=== PATIENT | male | born 1950 | race Caucasian/White ===

== ENCOUNTER 2020-03-10 12:02 | Day surgery (SDC) | payer MEDICARE, BC, SELFPAY ==
--- NOTE | 2020-03-06 11:25 | SUR.PREOP ---
Addendum entered by MICHELLE Can 03/06/20 11:29: 03/06/2020 @ 1130--PHONE CALL MADE TO PATIENT. PATIENT UNDERSTANDS THAT LAB WORK AND COVID TESTING NEEDS TO BE COMPLETED SAME DAY OF SURGERY. PATIENT UNDERSTANDS IF LAB WORK AND COVID-19 TESTS ARE NOT COMPLETED BY 12PM ON THAT DATE, THE SURGERY SCHEDULED WILL BE CANCELLED AND RESCHEDULED FOR ANOTHER TIME. Original Note: []--PHONE CALL MADE TO PATIENT. PATIENT UNDERSTANDS THAT LAB WORK AND COVID TESTING NEEDS TO BE COMPLETED @ [] on []. PATIENT UNDERSTANDS IF LAB WORK AND COVID-19 TESTS ARE NOT COMPLETED BY 12PM ON THAT DATE, THE SURGERY SCHEDULED WILL BE CANCELLED AND RESCHEDULED FOR ANOTHER TIME.
[2020-03-07 15:41] VITALS: BMI 31.8
[2020-03-10 13:23] VITALS: BP 126/75; PULSE 52; RESP 20; TEMP 36.4; O2SAT 99
[2020-03-10 13:24] LABS: Coronavirus 19 IgG Antibody Negative (Negative); Coronavirus 19 IgM Antibody Negative (Negative)
--- NOTE | 2020-03-10 14:05 | HMH.ANESCL ---
[facility] Anesthesia Checklist - Patient Identification Patient Identification: Arm Band - Structural Data Admitted From: Home Planned Operative Procedure/s: ercp Consent for Planned Operative Procedure(s) Verified: Yes Verified Documents: Surgical Consent, History and Physical - NPO Status Verified Time NPO: 00:00 - Additional verifications Anesthesia Reactions: No - Airway Assessment C-Spine Mobility Assessed: Yes (mp2) TMJ Mobility Assessed: Yes Dentition: Good Dentition - Neurological Assessment Level of Consciousness: Awake, Alert - Anesthesia Plan Anesthesia Risk discussed: Yes Anesthesia Plan: Verified ASA Class: III Anesthesia Type: MAC [facility] History I have reviewed the patient's past medical history: Yes Medical History: Reports:: Depression, Gastroesophageal Reflux Disease(GERD), Hyperlipidemia, Hypertension Denies:: Cancer, Diabetes Mellitus Type 1, Diabetes Mellitus Type 2, Internal Pacemaker, MRSA, Seizures *Have you ever received a pneumonia vaccine?: Yes *Have you received a flu vaccine this season?: Yes Other Medical History: Reports: Liver Disease Anesthesia experience/problems:: nac Other Surgeries: Yes: Other. No: Pacemaker Amputation: No Fractures: No - *Social History Educational Level: Attended College Smoking Status: Former smoker Alcohol Intake: current Alcohol Intake Frequency:: a few times a month Substance Use Type: denies use *Occupational Status:: employed Housing: house Household Members: spouse *Travel in the last 8 weeks: None Family Hx:: No significant family history
--- NOTE | 2020-03-10 14:35 | FL_ITS ---
PROCEDURE: FL ERCP CLINICAL INDICATION: RUQ PAIN COMPARISON: No exams were available for comparison FINDINGS: Fluoroscopy time: 1 minutes and 9 seconds There has been a prior cholecystectomy. Common bile duct has an unremarkable appearance. No intraluminal filling defects or dilatation evident. Pancreatic duct was not cannulated. IMPRESSION: Unremarkable appearing common bile duct and proximal biliary radicles Dictated by: Juni Otero MD 05/09/2020 06:52 Electronically signed by Juni Otero MD in [place] 05/09/2020 06:52
--- NOTE | 2020-03-10 14:54 | HMH.PROC ---
[facility] Procedure Note Procedure Note:: ERCP procedure Report: Endoscopic retrograde cholangiopancreatography with biliary sphincterotomy Endoscopist: Boni Hernandez II, MD Referring Physician: Regan Obrien MD/Carlota Parker MD Date of Procedure: March 10, 2020 Equipment: Olympus 180 side viewing endoscope duodenoscope Sedation: MAC sedation Indication: Mr. Reyna is a 69-year-old gentleman with chronic right-sided abdominal pain. He was referred to me for ERCP in December 2018 and had evidence of sphincter of Oddi dysfunction. I did do a biliary sphincterotomy. The patient and now states that he never generally improved after biliary sphincterotomy. He does report continued right lower abdominal pain that radiates around into the back. He has a history of obstipation and bloating. He had a prior colonoscopy in September 2018 (Dr. Lachelle Crawford) which was reportedly normal. He did not go to the terminal ileum. He has had prior cholecystectomy. He does state that he is taking the MiraLAX plus generic fiber. His CAT scan of the abdomen and pelvis in January 2018 was normal but there was some obvious obstipation with retained stool on the right side. His ultrasound of the abdomen in October 2018 showed a fatty liver but no biliary ductal dilation. He has been on BuSpar 10 mg p.o. twice daily and dietary measures. I did recommend continued dietary measures, MiraLAX plus Konsyl and buspirone increased to 20 mg p.o. twice daily. He is still having the discomfort. Procedure: Prior to the procedure, a history and physical exam was performed, and patient's medications and allergies were reviewed. The risks, benefits and alternatives of the sedation and procedure were discussed with the patient. All questions were answered and informed consent was obtained. The patient was brought to the fluoroscopic radiology room. Patient identification and proposed procedure were verified by the physician and the nurse. The patient was placed in a swimmer's position between left lateral decubitus and prone position and the scope was passed under direct vision. Throughout the procedure, the patient's blood pressure, pulse, and oxygen saturations were monitored continuously. The ERCP was accomplished without difficulty. The patient tolerated the procedure well. Findings: The side-viewing duodenal scope was passed directly into the upper esophagus and advanced to the third portion of the duodenum. There was evidence of duodenal reflux of peptic fluid into the stomach with associated reactive gastropathy of the stomach. The esophagus was normal. There was an enlarged lumen of the stomach with U-shaped stomach. There was mild peptic duodenitis. The ampulla was well visualized. There was no extravasation of bile. The common bile duct was selectively cannulated. The cholangiogram did show a 4 to 5 mm common bile duct with normal filling of the intrahepatic biliary system. The cystic duct stump was identified. There was no leak. There were no strictures. There was delayed drainage of contrast and bile at the level of the ampulla consistent with sphincter of Oddi dysfunction versus some SOD fibrotic stenosis from prior sphincterotomy. A generous biliary sphincterotomy was performed with excellent opening of the sphincter of Oddi and extravasation of bile and contrast. There was evidence of gaseous distention and angulation of the hepatic flexure of the colon as well on the fluoroscopic images. The pancreatic duct was not cannulated intentionally. The procedure was ended. Impression: 1. 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 I did wan
[2020-03-10 14:58] VITALS: O2SAT 95
[2020-03-10 15:32] VITALS: BP 101/58; PULSE 49; RESP 18; TEMP 36.3; O2SAT 94
[2020-03-10 15:42] VITALS: BP 108/67; PULSE 46; RESP 18; TEMP 36.3; O2SAT 98
[2020-03-10 15:52] VITALS: BP 115/78; PULSE 41; RESP 18; TEMP 36.3; O2SAT 95
[2020-03-10 16:15] VITALS: BP 131/74; PULSE 48; RESP 18; TEMP 36.3; O2SAT 96
== END 2020-03-10 16:15 | disposition home or self-care (01) ==
LOC: OUTP 12:07
PROVIDERS: Visit Provider Internal Medicine Gastroenterology
PROC: (CPT 43262; principal; 2020-03-10 14:00)
DX: K83.9 Disease of biliary tract, unspecified (principal); K63.89 Other specified diseases of intestine; K29.80 Duodenitis without bleeding; Z87.19 Personal history of other diseases of the digestive system; Z79.899 Other long term (current) drug therapy; I10 Essential (primary) hypertension; F32.9 Major depressive disorder, single episode, unspecified
CPT/HCPCS: 43262; 36415; 74330; 86328; J2405

== ENCOUNTER 2025-08-20 15:38 | Outpatient (CLI) | payer MEDICARE, BC, SELFPAY ==
--- OUTSIDE RECORDS SUMMARY | 2016-09-06 12:22 | XMS_ITS | Encounter Summary ---
Author Organization [facility] Address [address] [place] [address] Care Team Providers Care Dishing Machine Operator Name Role Phone Regan Obrien MD Primary Care Provider [phone] Encounter Details Date Type Department Care Team (Late st Contact Info) Description 09/06/2016 12:22 PM EST Hospital Encounter [facility] [address] [address] Social History Tobacco Use Types Packs/Day Years Used Date Smoking Tobacco: Former Cigarettes 1 7 0 10/10/1973 - 1980 Passive Smoke Exposure: Past Smokeless Tobacco: Never Comments:quit 44 years ago Alcohol Use Standard Drinks/Week Comments Yes 1 (1 standard drink = 0.6 oz pur e alcohol) will go weeks without a drink AUDIT-C Answer Date Recorded Q1: How often do you have a drink containing alcohol? Never 04/09/2025 Q2: How many drinks containi ng alcohol do you have on a typical day when you are drinking? Patient does not drink Q3: How often do you have si x or more drinks on one occasion? Never 04/09/2025 Abuse Screen Answer Date Recorded Feels Unsafe at Home or Work/School no 04/29/2025 Feels Threatened by Someone no 04/10 Does Anyone Try to Keep You From Having Contact with Others or Doing Things Outside Your Home? no 04/29/2025 Physical Signs of Abuse Present no 04/29/2025 Housing Stability Answer Date Recorded Current Living Arrangements home 10/2024 Potentially Unsafe Housing Conditions Not on lexie e 04/09/2025 Disabilities Answer Date Recorded Difficulty Concentrating, Remembering or Making Decisions no 04/09/2025 Difficulty Managing Errands Independently no 04/09/2025 Sex and Gender Information Value Date Recorded Sex Assigned at Not on file Legal Sex Male 11:02 AM EDT Gender Identity Not on file Sexual Orientation Not on file documented as of this encounter Functional Status * Calculated C-SSRS Risk Score (Lifetime/Recent) Answer Date of Assessment Author No Risk Indicated 04/29/2025 8:30 PM EDT Sonja Radford RN * [place] Suicide Severity Rating Scale (Screener/Recent Self-Report) Question Answer Date of Assessment Author 1. Wish to be (Past 1 Month) No 025 8:30 PM EDT Sonja Maria, PRO 2. Non-Specific Active Suici marty Thoughts (Past 1 Month) No 04/29/2025 8:30 PM EDT Jonathon Maria RN 6. Suicidal Behavior (Lifetime) No 8:30 PM EDT Sonja Maria RN documented as of this encounter Plan of Treatment Upcoming Encounters Date Type Department Care Team (Late st Contact Info) Description 01/08/2026 10:20 AM EDT Office Visit [facility] [address] [facility] [address] [address] Sanjay Freed, HOME HEALTH PROVIDER 793 [facility] [address] [address] 01/21/2026 9:45 AM EDT Office Visit [facility] [address] [address] Chun Connolly MD [address] [facility] 1 [facility] 12 [place] [address] 07/31/2026 10:30 AM EDT Office Visit [facility] [address] [facility] [address] [place] [id number] Regan Lopez MD [address] [place] [address] documented as of this encounter Procedures Procedure Name Priority Date/Time Associated Diagnosis Comments ECHO COMPLETE W/ DOPPLER AND COLOR FLOW Routine 09/06/2016 1:14 PM EST Chest pain in adult Essential hypertension Abnormal ECG documented in this encounter Results * ECHO COMPLETE W/ DOPPLER AND COLOR FLOW (09/06/2016 1:14 PM EST) BSA 2.4 m^2 [facility] RAD IVSd 1.6 cm E[facility] RAD IVSs 2.1 cm E[facility] RAD LVIDd 6.2 cm E[facility] RAD LVIDs 4.2 cm E[facility] RAD LVPWd 1.3 cm E[facility] RAD BH CV ECHO CHANDNI - LVPWS 2.0 cm EMC RAD IVS/LVPW 1.2 [facility] RAD FS 32.3 % [facility] RAD EDV(Teich) 194.0 ml EMC RAD ESV(Teich) 78.6 ml EMC RAD EF(Teich) 59.5 % [facility] RAD EDV(cubed) 238.3 ml EMC RAD ESV(cubed) 74.1 ml EMC RAD EF(cubed) 68.9 % [facility] RAD % IVS thick 31.3 % [facility] RAD % LVPW thick 50.0 % [facility] RAD LV mass(C)d 429.3 grams EMC RAD LV mass(C)dI 179.2 grams/m^2 E[facility] RAD LV mass(C)s 406.1 grams EMC RAD LV mass(C)sI 169.5 grams/m^2 [facility] RAD SV(Teich) 115.4 ml EMC RAD SI(Teich) 48.2 ml/m^2 [facility] RAD SV(cubed) 164.2 ml E[facility] RAD SI(cubed) 68.5 ml/m^2 [facility] RAD Ao root diam 3.8 cm E[facility] RAD Ao root area 11.3 cm^2 E[facility] RAD LA dimension (2D) 3.8 cm EMC RAD LA/Ao 1.0 E[facility] RAD LVOT diam 2.3 cm EMC RAD LVOT area 4.2 cm^2 E[facility] RAD LVOT area(traced) 4.2 cm^2 E[facility] RAD Ao root area (BSA corrected) 1.6 [facility] RAD MV E max blanca 63.3 cm/sec E[facility] RAD MV A max blanca 62.6 cm/sec E[facility] RAD MV E/A 1.0 E[facility] RAD MV P1/2t max blanca 62.6 cm/sec E[facility] RAD MV P1/2t 72.9 msec E[facility] RAD MVA(P1/2t) 3.0 cm^2 E[facility] RAD MV dec slope 251.5 cm/sec^2 E[facility] RAD Ao pk blanca 123.0 cm/sec E[facility] RAD Ao max PG 6.1 mmHg E[facility] RAD Ao max PG (full) 3.0 mmHg E[facility] RAD Ao V2 mean 84.3 cm/sec E[facility] RAD Ao mean PG 3.0 mmHg EMC RAD Ao mean PG (full) 2.0 mmHg EMC RAD Ao V2 VTI 26.3 cm EMC RAD MARCOS(I,A) 3.3 cm^2 EMC RAD MARCOS(I,D) 3.3 cm^2 EMC RAD MARCOS(V,A) 2.9 cm^2 EMC RAD MARCOS(V,D) 2.9 cm^2 EMC RAD LV V1 max PG 3.0 mmHg EMC RAD LV V1 mean PG 1.0 mmHg EMC RAD LV V1 max 86.8 cm/sec EMC RAD LV V1 mean 53.7 cm/sec EMC RAD LV V1 VTI 21.0 cm EMC RAD SV(Ao) 298.3 ml EMC RAD SI(Ao) 124.5 ml/m^2 E[facility] RAD SV(LVOT) 87.2 ml EMC RAD SI(LVOT) 36.4 ml/m^2 E[facility] RAD TV V2 max 62.6 cm/sec EMC RAD TV max PG 1.6 mmHg EMC RAD PA V2 max 78.4 cm/sec EMC RAD PA max PG 2.5 mmHg EMC RAD TR max blanca 157.0 cm/sec EMC RAD RVSP(TR) 19.9 mmHg EMC RAD RAP systole 10.0 mmHg EMC RAD MVA P1/2T LCG 3.5 cm^2 EMC RAD CV ECHO CHANDNI - BZI_BMI 30.7 kilograms/m ^2 EMC RAD CV ECHO CHANDNI - BSA(HAYCOCK) 2.5 m^2 EMC RAD CV ECHO CHANDNI - BZI_METRIC_WEIG HT 111.6 kg EMC RAD BH CV ECHO CHANDNI - BZI_METRIC_HEIG HT 190.5 cm EMC RAD Echo EF Estimated 58 % EMC RAD Anatomical Region Laterality Modality Ultrasound 09/06/2016 1:04 PM EST Narrative 09/06/2016 3:22 PM EST All left ventricular wall segments contract normally. Left ventricular wall thickness is consistent with mild concentric hypertrophy. Left ventricular function is normal. Estimated EF = 58%. Left ventricular diastolic dysfunction (grade I) consistent with impaired relaxation. Left Ventricle Left ventricular function is normal. Estimated EF was in agreement with the calculated EF. Estimated EF appears to be in the range of 56 - 60%. Estimated EF = 58%. Normal left ventricular cavity size noted. All left ventricular wall segments contract normally. Left ventricular wall thickness is consistent with mild concentric hypertrophy. Septal wall motion is normal. Left ventricular diastolic dysfunction is noted (grade I) consistent with impaired relaxation. There is no evidence of a left ventricular mass or thrombus present. Right Ventricle Normal cavity size, wall thickness, systolic function and septal motion noted. Left Atrium Normal left atrial size and volume noted. Right Atrium Normal right atrial size noted. Mitral Valve The mitral valve is grossly normal in structure. Trace mitral valve regurgitation is present. No significant mitral valve stenosis is present. Tricuspid Valve The tricuspid valve is normal. No tricuspid valve stenosis is present. Trace tricuspid valve regurgitation is present. Estimated right ventricular systolic pressure from tricuspid regurgitation is normal (<35 mmHg). Aortic Valve The aortic valve is structurally normal. [id number] aortic valve regurgitation is present. No aortic valve stenosis is present. Pulmonic Valve The pulmonic valve is structurally normal. There is no significant pulmonic valve stenosis present. There is no pulmonic valve regurgitation present. Pericardium The pericardium is normal. There is no evidence of pericardial effusion. Additional Study Details Echocardiogram The study is technically good for diagnosis.Incidental PVC. Greater Vessels No dilation of the aortic root is present. No dilation of the sinuses of Valsalva is present. us Chun Connolly MD CV ECHO ORDERABLES Final Res ult documented in this encounter Visit Diagnoses Not on filedocumented in this encounter Additional Health Concerns Infection Onset Date Last Indicated Resolved Time COVID (rule out) 06/12/2020 06/23/2020 06/19/2020 9:08 PM EDT COVID Screen (preop/placement) 03/11/2022 03/13/2022 12/01/2023 12:11 PM EST documented as of this encounter Care Teams Dishing Machine Operator Relationship Specialty Start Date End Date Regan Obrien MD PCP - General 07/22/15 02/13/25 documented as of this encounter
--- OUTSIDE RECORDS SUMMARY | 2016-09-06 12:37 | XMS_ITS | Encounter Summary ---
Author Organization [facility] Address [address] [place] [address] Care Team Providers Care Tube Lancer Name Role Phone Regan Obrien MD Primary Care Provider [phone] Encounter Details Date Type Department Care Team (Late st Contact Info) Description 09/06/2016 12:37 PM EST Hospital Encounter [facility] [address] [address] Social History Tobacco Use Types [...] on file documented as of this encounter Last Filed Vital Signs Vital Sign Reading Time Taken Comments Blood Pressure 136/80 09/06/2016 1:13 PM EST Pulse - - Temperature - - Respiratory Rate - - Oxygen Saturation - - Inhaled Oxygen Concentration - - Weight 112 kg (246 lb) 09/06/2016 1:13 PM EST Height 190.5 cm (6' 3 ) 09/06/2016 1:13 PM EST Body Mass Index 30.75 09/06/2016 1:13 PM EST documented in this encounter Functional Status * Calculated C-SSRS Risk Score (Lifetime/Recent) Answer Date of Assessment Author No Risk Indicated 04/29/2025 8:30 PM EDT Sonja Radford RN * [place] Suicide Severity Rating Scale (Screener/Recent Self-Report) Question Answer Date of Assessment Author 1. Wish to be (Past 1 Month) No 025 8:30 PM EDT Sonja Maria RN 2. Non-Specific Active Suici marty Thoughts (Past 1 Month) No 04/29/2025 8:30 PM EDT Jonathon Maria RN 6. Suicidal Behavior (Lifetime) No 5 8:30 PM EDT Sonja Maria RN documented as of this encounter Plan of Treatment Upcoming Encounters Date Type Department Care Team (Late st Contact Info) Description 01/08/2026 10:20 AM EDT Office Visit [facility] [address] [facility] [address] [address] Sanjay Freed, FARMWORKER VEGETABLE 793 [facility] [address] [address] 01/21/2026 9:45 AM EDT Office Visit [facility] [address] [address] Chun Connolly MD [address] [place] [address] [address] 07/31/2026 10:30 AM EDT Office Visit [facility] [address] [facility] [address] [place] [id number] Regan Lopez MD [address] [place] [address] documented as of this encounter Procedures Procedure Name Priority Date/Time Associated Diagnosis Comments STRESS TEST ONLY, EXERCISE Routine 09/06/2016 1:17 PM EST Chest pain in adult Abnormal ECG documented in this encounter Results * STRESS TEST ONLY, EXERCISE (09/06/2016 1:17 PM EST) CV STRESS PROTOCOL 1 Shawn Stage 1 1 Duration Min Stage 1 3 Duration Sec Stage 1 0 Grade Stage 1 10 Speed Stage 1 1.7 CV STRESS METS STAGE 1 5 Baseline HR 58 bpm Baseline BP 136/80 mmHg O2 sat rest 98 % Peak HR 160 bpm Percent Max Pred HR 101.91 % Percent Target HR 120 % Peak BP 156/100 mmHg O2 sat peak 98 % Recovery HR 91 bpm Recovery BP 140/80 mmHg Recovery O2 98 % Target HR (85%) 133 bpm Max. Pred. HR (100%) 157 bpm Exercise duration (min) 10 min Estimated workload 12.8 METS Anatomical Region Laterality Modality Other Narrative 09/06/2016 3:19 PM EST The patient reported dyspnea during the stress test. No evidence of inducible ischemia at cardiac workload achieved Stress Findings No ECG evidence of myocardial ischemia.Negative clinical evidence of myocardial ischemia. Findings consistent with a normal ECG stress test. Rest ECG Baseline ECG of normal sinus rhythm noted. PVCs noted. There was no ST segment deviation noted. Stress ECG Stress ECG rhythm of sinus tachycardia noted. There was no ST segment deviation noted during stress. Arrhythmias during stress: none. Arrhythmias during recovery: none. There were no significant arrhythmias noted during the test. ECG was interpretable and indicates a normal stress ECG. Normal ECG stress ECG interpretation. Stress Description A stress test was performed following the Shawn protocol. The patient reached the end of the protocol. The patient reported dyspnea during the stress test. The patient experienced no angina during the stress test. low risk for ischemic heart disease. Blood pressure and heart rate demonstrated a normal response to exercise. Overall, the patient's exercise capacity was mildly impaired. us Chun Connolly MD CV STRESS ORDERABLES Final R esult documented in this encounter Visit Diagnoses Not on filedocumented in this encounter Additional Health Concerns Infection Onset Date Last Indicated Resolved Time COVID (rule out) 06/12/2020 06/23/2020 06/19/2020 9:08 PM EDT COVID Screen (preop/placement) 03/11/2022 03/13/2022 12/01/2023 12:11 PM EST documented as of this encounter Care Teams Tube Lancer Relationship Specialty Start Date End Date Regan Obrien MD PCP - General 07/22/15 02/13/25 documented as of this encounter
--- OUTSIDE RECORDS SUMMARY | 2017-09-15 10:18 | XMS_ITS | Encounter Summary ---
Author Organization [facility] Address [address] [place] [address] Care Team Providers Care Realtime Court Reporter Name Role Phone Regan Obrien MD Primary Care Provider [phone] Reason for Visit * Diagnostic Imaging (Routine) - Closed Specialty Diagnoses / Procedures Referred By Jassi small Referred To Contact Cardiology Diagnoses Essential hypertension Precordial pain SOB (shortness of breath) Procedures Adult Transthoracic Echo Complete W/ Cont if Necessary Per Protocol Chun Connolly MD [address] [place] [id number] Phone: tel: fax: [facility] [address] [place] [phone] Phone: tel: fax: Referral ID Status Reason Start Date Expiration Date Visits Re quested Visits Authorized [id number] Closed 09/13/2017 09/13/2018 1 1 Encounter Details Date Type Department Care Team (Late st Contact Info) Description 09/15/2017 10:18 AM EST Hospital Encounter [facility] [address] [place] [address] Social History Tobacco Use Types Packs/Day [...] Sign Reading Time Taken Comments Blood Pressure 122/62 09/15/2017 10:20 AM EST Pulse - - Temperature - - Respiratory Rate - - Oxygen Saturation - - Inhaled Oxygen Concentration - - Weight 116 kg (255 lb) 09/15/2017 10:20 AM EST Height 190.5 cm (6' 3 ) 09/15/2017 10:20 AM EST Body Mass Index 31.87 09/15/2017 10:20 AM EST documented in this encounter Functional Status * Calculated C-SSRS Risk Score (Lifetime/Recent) Answer Date of Assessment Author No Risk Indicated 04/29/2025 8:30 PM EDT Sonja Radford RN * [place] Suicide Severity Rating Scale (Screener/Recent Self-Report) Question [...] Description 01/08/2026 10:20 AM EDT Office Visit [facility] [address] [facility] [address] [place] [address] Sanjay Freed, CORRUGATOR HELPER 793 [facility] [address] [address] 01/21/2026 9:45 AM EDT Office Visit [facility] [address] [address] Chun Connolly MD 789 [facility] [address] [address] 07/31/2026 10:30 AM EDT Office Visit [facility] 1720 [facility] 400 [place] [address] Regan Lopez MD 1720 [facility] 400 [place], [place] [id number] documented as of this encounter Procedures Procedure Name Priority Date/Time Associated Diagnosis Comments ECHO COMPLETE W/ DOPPLER AND COLOR FLOW Routine 09/15/2017 10:50 AM EST Essential hypertension Precordial pain SOB (shortness of breath) documented in this encounter Results * ECHO COMPLETE W/ DOPPLER AND COLOR FLOW (09/15/2017 10:50 AM EST) BSA 2.4 m^2 EMC RAD IVSd 1.1 cm EMC RAD IVSs 1.6 cm EMC RAD LVIDd 5.3 cm EMC RAD LVIDs 3.9 cm EMC RAD LVPWd 1.1 cm EMC RAD BH CV ECHO CHANDNI - LVPWS 1.8 cm EMC RAD IVS/LVPW 1.2 EMC RAD FS 27.4 % EMC RAD EDV(Teich) 135.3 ml EMC RAD ESV(Teich) 63.9 ml EMC RAD EF(Teich) 52.8 % EMC RAD EDV(cubed) 148.9 ml EMC RAD ESV(cubed) 57.1 ml EMC RAD EF(cubed) 61.7 % EMC RAD % IVS thick 23.1 % EMC RAD % LVPW thick 59.1 % EMC RAD LV mass(C)d 256.6 grams EMC RAD LV mass(C)dI 105.5 grams/m^2 EMC RAD LV mass(C)s 263.7 grams EMC RAD LV mass(C)sI 108.4 grams/m^2 EMC RAD SV(Teich) 71.4 ml EMC RAD SI(Teich) 29.4 ml/m^2 EMC RAD SV(cubed) 91.8 ml EMC RAD SI(cubed) 37.7 ml/m^2 EMC RAD Ao root diam 4.1 cm EMC RAD Ao root area 13.2 cm^2 EMC RAD LA dimension (2D) 3.3 cm EMC RAD LA/Ao 0.8 EMC RAD LVOT diam 2.4 cm EMC RAD LVOT area 4.5 cm^2 EMC RAD LVOT area(traced) 4.5 cm^2 EMC RAD LVLd ap4 9.9 cm EMC RAD EDV(MOD-sp4) 184.0 ml EMC RAD LVLs ap4 8.3 cm EMC RAD ESV(MOD-sp4) 58.0 ml EMC RAD EF(MOD-sp4) 62 % EMC RAD SV(MOD-sp4) 126.0 ml EMC RAD SVi(MOD-SP4) 51.8 ml/m^2 EMC RAD Ao root area (BSA corrected) 1.7 EMC RAD EF - Contrast (4Ch) 68.5 ml/m^2 EMC RAD LV Cole Vol (BSA corrected) 75.6 ml/m^2 EMC RAD LV Sys Vol (BSA corrected) 23.8 ml/m^2 EMC RAD MV E max blanca 70.1 cm/sec EMC RAD MV A max blanca 61.9 cm/sec EMC RAD MV E/A 1.1 EMC RAD LV IVRT 0.11 sec EMC RAD MV P1/2t max blanca 70.8 cm/sec EMC RAD MV P1/2t 73.3 msec EMC RAD MVA(P1/2t) 3.0 cm^2 EMC RAD MV dec slope 283.0 cm/sec^2 EMC RAD MV dec time 0.27 sec EMC RAD Ao pk blanca 138.0 cm/sec EMC RAD Ao max PG 8.0 mmHg EMC RAD Ao max PG (full) 3.0 mmHg EMC RAD Ao V2 mean 87.7 cm/sec EMC RAD Ao mean PG 4.0 mmHg EMC RAD Ao mean PG (full) 2.0 mmHg EMC RAD Ao V2 VTI 25.0 cm EMC RAD MARCOS(I,A) 4.0 cm^2 EMC RAD MARCOS(I,D) 4.0 cm^2 EMC RAD MARCOS(V,A) 3.7 cm^2 EMC RAD MARCOS(V,D) 3.7 cm^2 EMC RAD LV V1 max PG 5.0 mmHg EMC RAD LV V1 mean PG 2.0 mmHg EMC RAD LV V1 max 112.0 cm/sec EMC RAD LV V1 mean 71.1 cm/sec EMC RAD LV V1 VTI 22.0 cm EMC RAD SV(Ao) 330.1 ml EMC RAD SI(Ao) 135.7 ml/m^2 EMC RAD SV(LVOT) 99.5 ml EMC RAD SI(LVOT) 40.9 ml/m^2 EMC RAD TV V2 max 60.5 cm/sec EMC RAD TV max PG 1.5 mmHg EMC RAD PA V2 max 88.0 cm/sec EMC RAD PA max PG 3.1 mmHg EMC RAD TR max blanca 157.0 cm/sec EMC RAD RVSP(TR) 20.0 mmHg EMC RAD RAP systole 10.0 mmHg EMC RAD MVA P1/2T LCG 3.1 cm^2 EMC RAD CV ECHO CHANDNI - BZI_BMI 31.9 kilograms/m ^2 EMC RAD CV ECHO CHANDNI - BSA(HAYCOCK) 2.5 m^2 EMC RAD CV ECHO CHANDNI - BZI_METRIC_WEIG HT 115.7 kg EMC RAD CV ECHO CHANDNI - BZI_METRIC_HEIG HT 190.5 cm EMC RAD LA ESV Index (BP) 25.0 mL/m2 [facility] Echo EF Estimated 64 % [facility] Anatomical Region Laterality Modality Ultrasound 09/15/2017 10:3 9 AM EST Narrative 09/15/2017 11:23 AM EST Left ventricular wall thickness is consistent with borderline concentric hypertrophy. Mild aortic valve regurgitation is present. Left ventricular systolic function is normal. Estimated EF = 64%. Left Ventricle Left ventricular systolic function is normal. Calculated EF = 62%. Estimated EF was in agreement with the calculated EF. Estimated EF appears to be in the range of 61 - 65%. Estimated EF = 64%. Normal left ventricular cavity size noted. All left ventricular wall segments contract normally. Left ventricular wall thickness is consistent with borderline concentric hypertrophy. Septal wall motion is normal. Left ventricular diastolic function is normal. Normal left atrial pressure. There is no evidence of a left ventricular mass or thrombus present. Right Ventricle Normal right ventricular cavity size, wall thickness, systolic function and septal motion noted. No evidence of a right ventricular thrombus present. No evidence of a right ventricular mass present. Left Atrium Normal left atrial size and volume noted. No evidence of a left atrial thrombus present. No evidence of a left atrial mass present. appear normal with no flow abnormalities. Right Atrium Normal right atrial size noted. The inferior vena cava is normally sized. Normal IVC inspiratory collapse of greater than 50% noted. Normal IVC flow pattern noted. The superior vena cava is normaly sized. No evidence of a right atrial thrombus present. No evidence of a right atrial mass present. Mitral Valve The mitral valve is normal in structure. Trace mitral valve regurgitation is present. No significant mitral valve stenosis is present. Tricuspid Valve The tricuspid valve is normal. No tricuspid valve stenosis is present. Physiologic tricuspid valve regurgitation is present. Estimated right ventricular systolic pressure from tricuspid regurgitation is normal (<35 mmHg). No evidence of pulmonary hypertension is present. Aortic Valve The aortic valve is structurally normal. The valve appears trileaflet. Mild aortic valve regurgitation is present. No aortic valve stenosis is present. Pulmonic Valve The pulmonic valve is structurally normal. There is no significant pulmonic valve stenosis present. There is no pulmonic valve regurgitation present. Pericardium The pericardium is normal. There is no evidence of pericardial effusion. Additional Study Details Echocardiogram The study is technically good for diagnosis.Contrast was not used for this study. Normal sinus was the predominant rhythm observed during the procedure. Greater Vessels No dilation of the aortic root is present. No dilation of the sinuses of Valsalva is present. Wall Scoring Score Index: 1.000 Percent Normal: 100.0% The left ventricular wall motion is normal. us Chun Connolly MD CV ECHO ORDERABLES Final Res ult documented in this encounter Visit Diagnoses Not on filedocumented in this encounter Additional Health Concerns Infection Onset Date Last Indicated Resolved Time COVID (rule out) 06/12/2020 06/23/2020 06/19/2020 9:08 PM EDT COVID Screen (preop/placement) 03/11/2022 03/13/2022 12/01/2023 12:11 PM EST documented as of this encounter Care Teams Realtime Court Reporter Relationship Specialty Start Date End Date Regan Obrien MD PCP - General 07/22/15 02/13/25 documented as of this encounter
--- OUTSIDE RECORDS SUMMARY | 2023-04-06 07:00 | XMS_ITS | Encounter Summary ---
Author Organization [facility] Address [address] [place] [address] Care Team Providers Care Gis Software Engineer Name Role Phone Regan Obrien MD Primary Care Provider [phone] Reason for Referral * Hospital - Outpatient (Routine) - Closed Specialty Diagnoses / Procedures Referred By Contac t Referred To Contact Diagnoses Excessive daytime sleepiness Obstructive sleep apnea Obesity (BMI 30-39.9) Procedures Home Sleep Study Yung Mcelroy MD 3 [facility] 3 [place] [address] Phone: tel: fax: [address] [address] Phone: tel: Referral ID Status Reason Start Date Expiration Date Visits Re quested Visits Authorized [id number] Closed 03/10/2023 03/09/2024 1 1 Reason for Visit * Hospital - Outpatient (Routine) - Closed Specialty Diagnoses / Procedures Referred By Contac t Referred To Contact Diagnoses Excessive daytime sleepiness Obstructive sleep apnea Obesity (BMI 30-39.9) Procedures Home Sleep Study uYng Mcelroy MD 7[address] [facility] 3 [place] [address] Phone: tel: fax: [address] [address] Phone: tel: Referral ID Status Reason Start Date Expiration Date Visits Re quested Visits Authorized [id number] Closed 03/10/2023 03/09/2024 1 1 Encounter Details Date Type Department Care Team (Latest Contact Info) Description 04/06/2023 8:00 AM EDT Hospital Encounter [facility] [address] [place] [address] Yung Mcelroy MD 793 [facility] [address] [place] [address] Excessive daytime sleepiness; Obstructive sleep apnea; Obesity (BMI 30-39.9) Social History Tobacco Use Types Packs/Day Years [...] Risk Indicated 04/29/2025 8:30 PM EDT Sonja Radford, PRO * [place]de Suicide Severity Rating Scale (Screener/Recent Self-Report) Question [...] Description 01/08/2026 10:20 AM EDT Office Visit [facility] UROLOGY 793 [facility] [address] [address] Sanjay Freed, CINDER CRUSHER OPERATOR 793 [facility] [address] [address] 01/21/2026 9:45 AM EDT Office Visit [facility] CARDIOLOGY 789 [facility] 12 [place] [address] Chun Connolly MD 789 [facility] 1 [address] [place] [address] 07/31/2026 10:30 AM EDT Office Visit [facility]Y 17[address] [facility] [address] [place] [phone] Regan Lopez MD 1720 [facility] [address] [place] [address] documented as of this encounter Procedures Procedure Name Priority Date/Time Associated Diagnosis Comments HST Routine 04/08/2023 10:18 AM EDT Excessive daytime sleepiness Obstructive sleep apnea Obesity (BMI 30-39.9) documented in this encounter Results * HST (04/08/2023 10:18 AM EDT) Narrative SLEEP MEDICINE - 04/14/2023 4:16 PM EDT Table formatting from the original result was not included. [facility] Pulmonary, Critical Care, and Sleep Medicine Yung Mcelroy M.D. 793 [facility] [address] Medical Office [address], [place]. [address]. HOME SLEEP STUDY INTERPRETATION Date of Study: 04/06/2023 Patient Name: Ti Reyna Date of : 1950 Study ordered by: Dr. Mcelroy Diagnosis after study: Obstructive Sleep Apnea. Snoring Event related hypoxia Impression: Study was performed according to standardized protocol and appears to meet the technical quality criteria as per AASM. Home sleep study underestimates the RDI/AHI, as the Total Sleep Time can't be accurately assessed. Total estimated recording time was 455 minutes. This study reveals mild sleep apnea with an AHI of 13 /hour. AHI was worse in supine vs non-supine sleep (16 vs 11 /hour) Event related hypoxia noted. Recommendations: BMI Readings from Last 1 Encounters: 03/10/23 30.80 kg/m If the patient's is >30, weight loss maybe beneficial and is recommended. The patient will be asked to start an empiric trial of Auto PAP at pressure limits of 6 / 14 cm. The patient may need a formal titration study afterwards. Patient may benefit from overnight pulse oximetry on AutoPap and if it continues to show hypoxemia despite the use of AutoPap, then he may need to be considered for a full night titration study. Follow up: Patient will need to follow up in 4-24 weeks with one of the providers in this office. Clinical Information: The patient is 72 y.o. with the following GOLDY symptoms: daytime fatigue, tiredness, frequent nocturnal awakenings & snoring. Other conditions may affect treatment decisions. This includes hypertension Please feel free to contact the office of [facility] Pulmonary, Critical Care and Sleep Medicine at [phone], if you have any questions about this study. Best regards, This document was electronically signed by Yung Mcelroy MD on 04/14/23 at 16:15 EDT Yung Mcelroy MD SLEEP CENTER ORDERABLES Caridad bosch Result SLEEP MEDICINE documented in this encounter Visit Diagnoses Diagnosis Excessive daytime sleepiness Obstructive sleep apnea Obstructive sleep apnea (adult) (pediatric) Obesity (BMI 30-39.9) documented in this encounter Additional Health Concerns Infection Onset Date Last Indicated Resolved Time COVID Screen (preop/placement) 03/11/2022 03/13/2022 12/01/2023 12:11 PM EST documented as of this encounter Care Teams Gis Software Engineer Relationship Specialty Start Date End Date Regan Obrien MD PCP - General 07/22/15 02/13/25 documented as of this encounter
--- OUTSIDE RECORDS SUMMARY | 2025-07-09 06:02 | XMS_ITS | Encounter Summary ---
Author Organization [facility] Address [address] [place] [address] Care Team Providers Care Investment Consultant Name Role Phone Regan Obrien MD Primary Care Provider [phone] Reason for Referral * MRI/CAT/PET Scan (Routine) - Closed Specialty Diagnoses / Procedures Referred By Contac t Referred To Contact Radiology Diagnoses Unspecified renal colic Procedures CT Abdomen Pelvis Without Contrast Regan Obrien MD [address] [place] [address] Phone: tel: fax: [address] [address] Phone: tel: Referral ID Status Reason Start Date Expiration Date Visits Re quested Visits Authorized [id number] Closed 06/21/2025 09/20/2026 1 1 Reason for Visit * MRI/CAT/PET Scan (Routine) - Closed Specialty Diagnoses / Procedures Referred By Contac t Referred To Contact Radiology Diagnoses Unspecified renal colic Procedures CT Abdomen Pelvis Without Contrast Regan Obrien MD [address] [place] [address] Phone: tel: fax: [address] [address] Phone: tel: Referral ID Status Reason Start Date Expiration Date Visits Re quested Visits Authorized [id number] Closed 06/21/2025 09/20/2026 1 1 Encounter Details Date Type Department Care Team (Latest Contact Info) Description 07/09/2025 7:02 AM EDT - 07/09/2025 11:59 PM EDT Hospital Encounter [facility] [address] [place] [address] Regan Obrien MD [address] [place] [address] Unspecified renal colic Discharge Disposition: Home or Self Care Social History Tobacco Use Types Packs/Day Years Used Date Smoking Tobacco: Former Cigarettes 1 7 0 10/10/1973 - 1980 Passive Smoke Exposure: Past Smokeless Tobacco: Never Alcohol Use Standard Drinks/Week Comments Yes 1 [...] on file documented as of this encounter Medications at Time of Discharge allopurinol (ZYLOPRIM) 300 MG tablet Take 1 tablet by mouth Daily. 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 0 11/07/2018 FIBER PO Take by mouth Daily. Multiple Vitamins-Minerals (MULTIVITAL OTOE-MISSOURIA SILVER PO) Take 1 tablet by mouth Daily. Polyethylene Glycol 3350 (MIRALAX PO) Take by mouth Daily. Psyllium (METAMUCIL FIBER PO) Take by mouth. rosuvastatin (CRESTOR) 5 MG tablet Take 1 tablet by mouth Daily. sildenafil (REVATIO) 20 MG tabletIndications :Erectile dysfunction, unspecified erectile dysfunction type Take 1 tablet by mouth See Admin Instructions. 1-2 daily as needed. Do not exceed 5 pills per day. 30 tablet 2 01/08/2025 07/24/2025 documented as of this encounter Plan of Treatment Upcoming Encounters Date Type Department Care Team (Late st Contact Info) Description 01/08/2026 10:20 AM EDT Office Visit [facility] UROLOGY 793 [facility] 3 [facility] [address] [place] [address] Sanjay Freed, PAVING SUPERVISOR 793 [facility] [address] [id number] 01/21/2026 9:45 AM EDT Office Visit [facility] CARDIOLOGY 789 [facility] 12 [place] [address] Chun Connolly MD 789 [facility] 1 [facility] [address] [place], [place] [id number] 07/31/2026 10:30 AM EDT Office Visit [facility]OLOGY 17[facility] [address] [place] [phone] Regan Lopez MD [facility] [address] [place] [address] documented as of this encounter Procedures Procedure Name Priority Date/Time Associated Diagnosis Comments CT ABDOMEN PELVIS WO CONTRAST Routine 07/09/2025 7:16 AM EDT Unspecified renal colic documented in this encounter Results * CT Abdomen Pelvis Without Contrast (07/09/2025 7:16 AM EDT) Anatomical Region Laterality Modality Abdomen, Pelvis N/A Computed Tomogra phy 07/10/2025 1:39 PM EDT Impressions 07/10/2025 1:44 PM EDT 1. No hydronephrosis or nephrolithiasis. 2. Stable right renal cyst. 3. Colonic diverticulosis. CTDI: 9.69 mGy DLP: 497.77 mGy.cm This study was performed with techniques to keep radiation doses as low as reasonably achievable (ALARA). Individualized dose reduction techniques using automated exposure control or adjustment of mA and/or kV according to the patient size were employed. Images were reviewed, interpreted, and dictated by Dr. Emily Garduno MD Transcribed by Juliet Rock PA-C. This report was signed and finalized on 07/10/2025 1:44 PM by Emily Garduno MD. Narrative 07/10/2025 1:44 PM EDT PROCEDURE: CT ABDOMEN PELVIS WO CONTRAST- HISTORY: N23; [id number] renal colic COMPARISON: July 2021. PROCEDURE: Axial images were obtained from the lung bases through the pubic symphysis without intravenous contrast. FINDINGS: ABDOMEN: The lung bases are clear. The heart size is normal. The limited noncontrast images of the liver show a stable hypodensity along the anterior left lobe of the liver likely focal fatty change. The gallbladder is surgically absent. The spleen is normal. No adrenal masses are seen. There is new calcification in the body of the pancreas. Increased calcifications in the head of the pancreas are also noted. Findings suggest chronic pancreatitis. The aorta is normal in caliber. There is no significant free fluid or adenopathy. There is a circumscribed hypodense cyst in the mid right kidney which is stable. There is no nephrolithiasis. There is no hydronephrosis. PELVIS: The appendix is normal. There is colonic diverticulosis. The urinary bladder is collapsed, but appears unremarkable. Prostate is normal. There is no significant fluid or adenopathy. Procedure Note Emily Garduno MD - 07/10/2025 PROCEDURE: CT ABDOMEN PELVIS WO CONTRAST- HISTORY: N23; [id number] renal colic COMPARISON: July 2021. PROCEDURE: Axial images were obtained from the lung bases through the pubic symphysis without intravenous contrast. FINDINGS: ABDOMEN: The lung bases are clear. The heart size is normal. The limited noncontrast images of the liver show a stable hypodensity along the anterior left lobe of the liver likely focal fatty change. The gallbladder is surgically absent. The spleen is normal. No adrenal masses are seen. There is new calcification in the body of the pancreas. Increased calcifications in the head of the pancreas are also noted. Findings suggest chronic pancreatitis. The aorta is normal in caliber. There is no significant free fluid or adenopathy. There is a circumscribed hypodense cyst in the mid right kidney which is stable. There is no nephrolithiasis. There is no hydronephrosis. PELVIS: The appendix is normal. There is colonic diverticulosis. The urinary bladder is collapsed, but appears unremarkable. Prostate is normal. There is no significant fluid or adenopathy. IMPRESSION: 1. No hydronephrosis or nephrolithiasis. 2. Stable right renal cyst. 3. Colonic diverticulosis. CTDI: 9.69 mGy DLP: 497.77 mGy.cm This study was performed with techniques to keep radiation doses as low as reasonably achievable (ALARA). Individualized dose reduction techniques using automated exposure control or adjustment of mA and/or kV according to the patient size were employed. Images were reviewed, interpreted, and dictated by Dr. Emily Garduno MD Transcribed by Juliet Rock PA-C. This report was signed and finalized on 07/10/2025 1:44 PM by Emily Garduno MD. Regan Obrien MD IMG CT ORDERABLES Final R esult documented in this encounter Visit Diagnoses Diagnosis Unspecified renal colic documented in this encounter Care Teams Investment Consultant Relationship Specialty Start Date End Date [facility] Obrien MD [address] [facility] [address] [place] [address] PCP - General Internal Medicine 02/14/25 documented as of this encounter
--- OUTSIDE RECORDS SUMMARY | 2025-07-24 09:00 | XMS_ITS | Encounter Summary ---
Author Organization [facility] Address [address] [place] [address] Care Team Providers Care Lawn Care Worker Name Role Phone Regan Obrien MD Primary Care Provider [phone] [phone] Reason for Referral * Diagnostic Imaging (Routine) - Closed Specialty Diagnoses / Procedures Referred By Contac t Referred To Contact Radiology Diagnoses Right groin pain Procedures US soft tissue Carlota Parker MD [address] [place] [address] Phone: tel: fax: [facility] GENERAL SURGERY [address] [address] Phone: tel: fax: Referral ID Status Reason Start Date Expiration Date Visits Re quested Visits Authorized [id number] Closed 07/24/2025 10/23/2026 1 1 Reason for Visit * Reason Comments Abdominal Pain * Consultation (Routine) - Closed Specialty Diagnoses / Procedures Referred By Contac t Referred To Contact General Surgery Diagnoses Other specified complication of other internal prosthetic devices, implants and grafts, initial encounter Peritoneal adhesions (postprocedural) (postinfection) Regan Obrien MD [address] [facility] [address] [place] [address] Phone: tel: fax: Carlota Parker MD [address] [place] [address] Phone: tel: fax: Referral ID Status Reason Start Date Expiration Date Visits Re quested Visits Authorized [id number] Closed 06/21/2025 09/20/2026 1 1 Encounter Details Date Type Department Care Team (Late st Contact Info) Description 07/24/2025 10:00 AM EDT Office Visit [facility] GENERAL SURGERY [address] [place] [address] Carlota Parker MD [address] [place] [address] Right groin pain (Primary Dx); Idiopathic chronic pancreatitis; Diverticulosis Social History Tobacco Use Types Packs/Day Years Used Date Smoking Tobacco: Former Cigarettes 1 7 0 10/10/1973 - 1980 Passive Smoke Exposure: Past Smokeless Tobacco: Never Tobacco Cessation:Counseling Given: Yes Alcohol Use Standard Drinks/Week Comments Yes 1 [...] Sign Reading Time Taken Comments Blood Pressure 152/82 07/24/2025 9:56 AM EDT Pulse 73 07/24/2025 9:56 AM EDT Temperature 36.5 C (97.7 F) 07/24/2025 9:56 AM EDT Respiratory Rate - - Oxygen Saturation 98% 07/24/2025 9:56 AM EDT Inhaled Oxygen Concentration - - Weight 116 kg (255 lb 12.8 oz) 07/24/2025 9:56 A M EDT Height 190.5 cm (6' 3 ) 07/24/2025 9:56 AM EDT Body Mass Index 31.97 07/24/2025 9:56 AM EDT documented in this encounter Progress Notes * Carlota Parker MD - 07/24/2025 10:00 AM EDT Patient: Ti Reyna Date of : 1950 Date: 07/24/2025 Primary Care Provider: Regan Obrien MD Chief Complaint Patient presents with Abdominal Pain SUBJECTIVE: History of present illness: The patient is in the office today for evaluation and treatment of abdominal pain. His last EGD was in 2017 and pathology indicates active duodenitis and chronic gastritisand focal intestinal metaplasia. His gallbladder has been removed already. He states he started havi ng abdominal pain 4-6 weeks ago. He has had a hernia repair in that area. Patient concerned about recurrence of the right inguinal hernia. Pain discomfort prolonged standing that radiates to his right testicle. Patient also has chronic pancreatitis on CT scan, history of ERCP in the past. The following portions of the patient's history were reviewed and updated as appropriate: allergies, current medications, past family history, past medical history, past social history, past surgicalhistory and problem list. Review of Systems Constitutional: Negative for chills, fever and unexpected weight change. HENT: Negative for trouble swallowing and voice change. Eyes: Negative for visual disturbance. Respiratory: Negative for apnea, cough, chest tightness, shortness of breath and wheezing. Cardiovascular: Negative for chest pain, palpitations and leg swelling. Gastrointestinal: Positive for abdominal pain. Negative for abdominal distention, anal bleeding, blood in stool, constipation, diarrhea, nausea, rectal pain and vomiting. Endocrine: Negative for cold intolerance and heat intolerance. Genitourinary: Negative for difficulty urinating, dysuria, flank pain, scrotal swelling and testicular pain. Musculoskeletal: Negative for back pain, gait problem and joint swelling. Skin: Negative for color change, rash and wound. Neurological: Negative for dizziness, syncope, speech difficulty, weakness, numbness and headaches. Hematological: Negative for adenopathy. Does not bruise/bleed easily. Psychiatric/Behavioral: Negative for confusion. The patient is not nervous/anxious. Allergies: No Known Allergies Medications: Current Outpatient Medications: allopurinol (ZYLOPRIM) 300 MG tablet, Take 1 tablet by mouth Daily., Disp: , Rfl: amLODIPine-benazepril (LOTREL 2.5-10) 2.5-10 MG per capsule, TAKE ONE CAPSULE BY MOUTH EVERY DAY, Disp: 90 capsule, Rfl: 3 busPIRone (BUSPAR) 10 MG tablet, Take 0.5 tablets by mouth Daily., Disp: , Rfl: 0 FIBER PO, Take by mouth Daily., Disp: , Rfl: Multiple Vitamins-Minerals (MULTIVITAL [place] SILVER PO), Take 1 tablet by mouth Daily., Disp: , Rfl: Polyethylene Glycol 3350 (MIRALAX PO), Take by mouth Daily., Disp: , Rfl: Psyllium (METAMUCIL FIBER PO), Take by mouth., Disp: , Rfl: rosuvastatin (CRESTOR) 5 MG tablet, Take 1 tablet by mouth Daily., Disp: , Rfl: History: Past Medical History: Diagnosis Date Arrhythmia Essential hypertension GERD (gastroesophageal reflux disease) 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 Hyperlipidemia LDL goal <100 Kidney stones Past Surgical History: Procedure Laterality Date CARDIAC ELECTROPHYSIOLOGY PROCEDURE N/A 04/09/2025 Procedure: EP/CRM Study +/- SVT; DNS meds; Surgeon: Regan Lopez MD; Location: [facility]; Service: Cardiovascular; Laterality: N/A; CHOLECYSTECTOMY 05/25/2016 CYSTOSCOPY W/ URETEROSCOPY W/ LITHOTRIPSY 2008 ERCP 01/03/2019 INGUINAL HERNIA REPAIR Right 06/08/2016 KIDNEY STONE SURGERY 2009 KNEE ARTHROPLASTY, PARTIAL REPLACEMENT Right 11/05/2022 PROSTATE SURGERY 03/16/2022 Marcus WILSON SHOULDER ROTATOR CUFF REPAIR Left VASECTOMY Family History Problem Relation Age of Onset Arthritis Mother Stroke Father Arrhythmia Father afib Aortic aneurysm Father No Known Problems Sister No Known Problems Brother Social History Tobacco Use Smoking status: Former Current packs/day: 0.00 Average packs/day: 1 pack/day for 7.0 years (7.0 ttl pk-yrs) Types: Cigarettes Start date: 10/10/1973 Quit date: 1980 Years since quittin.8 Passive exposure: Past Smokeless tobacco: Never Vaping Use Vaping status: Never Used Substance Use Topics Alcohol use: Yes Alcohol/week: 1.0 standard drink of alcohol Types: 1 Cans of beer per week Comment: will go weeks without a drink Drug use: No OBJECTIVE: Vital Signs: Vitals: 07/24/25 0956 BP: 152/82 Pulse: 73 Temp: 97.7 ??F (36.5 ??C) TempSrc: Temporal SpO2: 98% Weight: 116 kg (255 lb 12.8 oz) Height: 190.5 cm (75 ) Physical Exam: Abdomen-tender right groin, no definite hernia palpated. Very tender at the internal ring. Results Review: I reviewed the patient's new clinical results. Review of Systems was reviewed and confirmed as accurate as documented by the MA. ASSESSMENT/PLAN: 1. Right groin pain 2. Idiopathic chronic pancreatitis 3. Diverticulosis Ultrasound right groin today indicates no evidence of a hernia in the area of the tender spot. He has a very tiny femoral hernia which is not clinically relevant. Patient reassured will follow-up as needed Electronically signed by Carlota Parker MD 07/24/25 documented in this encounter Plan of Treatment Upcoming Encounters Date Type Department Care Team (Late st Contact Info) Description 01/08/2026 10:20 AM EDT Office Visit [facility] UROLOGY [address] [facility] [address] [address] Sanjay Freed, TOP CARRIER [address] [facility] [address] [address] 01/21/2026 9:45 AM EDT Office Visit [facility] CARDIOLOGY 7[address] [facility] [address] [place] [phone] Chun Connolly MD 789 [facility] [address] [place], [place] [id number] 07/31/2026 10:30 AM EDT Office Visit [facility] CARDIOLOGY 1720 [facility] [address] [place] [address] Regan Lopez MD 1720 [facility] [address] [place] [address] documented as of this encounter Results * US soft tissue (07/24/2025 10:35 AM EDT) Anatomical Region Laterality Modality Body Ultrasound Impressions 07/25/2025 9:58 AM EDT Incidental finding of small femoral hernia, otherwise normal study. No evidence of hernia in the area of the tender mass Narrative 07/25/2025 9:58 AM EDT SOFT TISSUE ULTRASOUND OF THE right inguinal region The patient did have a soft tissue ultrasound performed today in the normal manner. There was good visualization obtained, there was evidence of a small 7 mm femoral hernia inferior to the mesh, nontender in that region. Area of tenderness in the upper area of the inguinal ring is negative for hernia. us Carlota Parker MD IMG US ORDERABLES Final Result documented in this encounter Visit Diagnoses Diagnosis Right groin pain- Primary Abdominal pain, right lower quadrant Idiopathic chronic pancreatitis Diverticulosis Diverticulosis of colon (without mention of hemorrhage) documented in this encounter Care Teams Lawn Care Worker Relationship Specialty Start Date End Date Regan Obrien MD [address] [place], [place] [id number] PCP - General Internal Medicine 02/14/25 documented as of this encounter
--- OUTSIDE RECORDS SUMMARY | 2025-07-25 09:30 | XMS_ITS | Encounter Summary ---
Author Organization [facility] Address [address] [place] [address] Care Team Providers Care Director Semiconductor Name Role Phone Regan Obrien MD Primary Care Provider [phone] [phone] Reason for Visit * Reason Comments PSVT (paroxysmal supraventricular tachyc ardia) Encounter Details Date Type Department Care Team (Late st Contact Info) Description 07/25/2025 10:30 AM EDT Office Visit [facility] CARDIOLOGY [address] [address] Regan Lopez MD 1720 [facility] [address] [place] [address] PSVT (paroxysmal supraventricular tachycardia) (Primary Dx); Essential hypertension Social History Tobacco Use Types Packs/Day Years Used Date Smoking Tobacco: Former Cigarettes 1 7 0 10/10/1973 - 1980 Passive Smoke Exposure: Past Smokeless Tobacco: Never Tobacco Cessation:Counseling Given: Not Answered Comments:quit 44 years ago Alcohol Use Standard [...] Sign Reading Time Taken Comments Blood Pressure 118/62 07/25/2025 10:26 AM EDT Pulse 56 07/25/2025 10:26 AM EDT Temperature - - Respiratory Rate - - Oxygen Saturation 94% 07/25/2025 10:26 AM EDT Inhaled Oxygen Concentration - - Weight 117 kg (258 lb 3.2 oz) 07/25/2025 10:26 A M EDT Height 190.5 cm (6' 3 ) 07/25/2025 10:26 AM EDT Body Mass Index 32.27 07/25/2025 10:26 AM EDT documented in this encounter Progress Notes * Regan Lopez MD - 07/25/2025 10:30 AM EDT Electrophysiology Clinic Consult Ti Reyna [id number] 1950 Referring Provider: No ref. provider found PCP: Regan Obrien MD [address] [place] [id number] Chief Complaint Patient presents with PSVT (paroxysmal supraventricular tachycardia) Problem List PSVT / AVNRT Monitor, 11/21/24: 51 episodes of SVT, idioventricular rhythm present Echo, 11/23/24: EF 55-60%, mild aortic regurgitation MPS, 12/2024: normal study Hypertension Hyperlipidemia GERD Kidney stones History of Present Illness Ti Reyna is a 74 y.o. 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 Symptoms SOB and clammy. No palpitation. Had one episode of syncope this past Tuesday. UPDATE 07/2025: Overall doing well. No recurrence of sustained SVT. Some episodes of palpitation but nothing lasting more than few seconds. RITA showing SVT lasting few seconds. Review of Systems Constitutional: Negative for activity change, fatigue and fever. Respiratory: Negative for chest tightness and shortness of breath. Cardiovascular: Negative for chest pain, palpitations and leg swelling. Gastrointestinal: Negative for constipation and diarrhea. Genitourinary: Negative for decreased urine volume and difficulty urinating. Skin: Negative for wound. Neurological: Negative for dizziness, syncope, weakness and light-headedness. Psychiatric/Behavioral: Negative for suicidal ideas. Outpatient Medications Marked as Taking for the 07/25/25 encounter (Office Visit) with Regan Lopez MD Medication Sig Dispense Refill allopurinol (ZYLOPRIM) 300 MG tablet Take 1 tablet by mouth Daily. (Patient taking differently: Take 0.5 tablets by mouth Daily.) amLODIPine-benazepril (LOTREL 2.5-10) 2.5-10 MG per capsule TAKE ONE CAPSULE BY MOUTH EVERY DAY 90 capsule 3 busPIRone (BUSPAR) 10 MG tablet Take 0.5 tablets by mouth Daily. 0 Multiple Vitamins-Minerals (MULTIVITAL [place] SILVER PO) Take 1 tablet by mouth Daily. Polyethylene Glycol 3350 (MIRALAX PO) Take by mouth Daily. Psyllium (METAMUCIL FIBER PO) Take by mouth. rosuvastatin (CRESTOR) 5 MG tablet Take 1 tablet by mouth Daily. Physical Exam Vitals: 07/25/25 1026 BP: 118/62 BP Location: Left arm Patient Position: Sitting Cuff Size: Adult Pulse: 56 SpO2: 94% Weight: 117 kg (258 lb 3.2 oz) Height: 190.5 cm (75 ) Body mass index is 32.27 kg/m??. Vitals and nursing note reviewed. Constitutional: Appearance: Healthy appearance. HENT: Head: Normocephalic and atraumatic. Nose: Nose normal. Neck: Vascular: No JVD. Pulmonary: Effort: Pulmonary effort is normal. Breath sounds: Normal breath sounds. Cardiovascular: PMI at left midclavicular line. Normal rate. Regular rhythm. Normal S1. Normal S2. Murmurs: There is no murmur. No gallop. Edema: Peripheral edema absent. Skin: General: Skin is warm and dry. Neurological: Mental Status: Oriented to person, place and time. Psychiatric: Behavior: Behavior normal. Diagnostic Data Procedures Lab Results Component Value Date GLUCOSE 111 (H) 04/29/2025 CALCIUM 8.9 04/29/2025 NA 140 04/29/2025 K 3.9 04/29/2025 CO2 22.9 04/29/2025 CL 107 04/29/2025 BUN 12.0 04/29/2025 CREATININE 1.07 04/29/2025 EGFRIFNONA 81 07/12/2021 BCR 11.2 04/29/2025 ANIONGAP 10.1 04/29/2025 Lab Results Component Value Date WBC 4.08 04/29/2025 HGB 13.6 04/29/2025 HCT 41.3 04/29/2025 MCV 93.7 04/29/2025 PLT 164 04/29/2025 No results found for: INR , PROTIME No results found for: TSH , N2CKDUF , Y4MVJHX , THYROIDAB I personally viewed and interpreted the patient's EKG/Telemetry/lab data Ti Reyna reports that he quit smoking about 44 years ago. His smoking use included cigarettes. He started smoking about 51 years ago. He has a 7 pack-year smoking history. He has been exposed to tobacco smoke. He has never used smokeless tobacco. I have educated him on the risk of diseases fromusing tobacco products such as cancer, COPD, and heart disease. I spent 3 minutes counseling the patient. ACP discussion was declined by the patient. Patient does not have an advance directive, declines further assistance. Assessment and Plan Diagnoses and all orders for this visit: 1. PSVT (paroxysmal supraventricular tachycardia) (Primary) 2. Essential hypertension PSVT -Monitor, 11/21/24: 51 episodes of SVT, idioventricular rhythm present -Echo, 11/23/24: EF 55-60%, mild aortic regurgitation -MPS, 12/2024: normal study -s/p AT ablation @ TV annulus and the base of RAA appendage -baseline bradycaridc; off of AVN blockade -doing well; follow up in 1 year. If no recurrence at that time, ok to follow up PRN Hypertension -Well controlled, continue current medication regimen Follow Up Return in about 1 year (around 07/25/2026). Thank you for allowing me to participate in the care of your patient. Please to not hesitate to contact me with additional questions or concerns. documented in this encounter Plan of Treatment Upcoming Encounters Date Type Department Care Team (Late st Contact Info) Description 01/08/2026 10:20 AM EDT Office Visit [facility] UROLOGY 793 [facility] [address] [phone] Sanjay Freed, MARINE EQUIPMENT PRESERVATION INSPECTOR 793 [facility] 3 [facility] 101 [place], [place] [id number] 01/21/2026 9:45 AM EDT Office Visit [facility] CARDIOLOGY 789 [facility] 12 [place] [address] Chun Connolly MD 789 [facility] 1 [facility] 12 [place] [address] 07/31/2026 10:30 AM EDT Office Visit [facility] CARDIOLOGY [address] [phone] Regan Lopez MD [address] [address] documented as of this encounter Visit Diagnoses Diagnosis PSVT (paroxysmal supraventricular tachycardia)- Primary Paroxysmal supraventricular tachycardia Essential hypertension Unspecified essential hypertension documented in this encounter Care Teams Director Semiconductor Relationship Specialty Start Date End Date Regan Obrien MD 2012 [facility] [address] [place] [address] PCP - General Internal Medicine 02/14/25 documented as of this encounter
--- NOTE | 2025-08-20 15:40 | XR_ITS ---
FINAL REPORT CLINICAL HISTORY: Assessment of fecal burden-stool right colon FINDINGS: The visualized intestinal gas pattern appears unremarkable without evidence to suggest obstruction. There is no significant retained stool. No abnormal radiopacities are seen in the abdomen. IMPRESSION: No acute findings. Reviewed, Interpreted and Dictated by Smitha Johnson MD Transcribed by Lakesha Jhaveri Authenticated and [facility]
--- OUTSIDE RECORDS SUMMARY | 2025-08-20 15:42 | XMS_ITS | Encounter Summary ---
Author Organization Healthcare Address [address] [place] [address] Care Team Providers Care Youth Development Specialist Name Role Phone Unknown, Unknown Primary Care Provider Unavailab le Encounter Details Date Type Department Care Team (Late st Contact Info) Description 02/05/2022 Orders Only [facility] Medical Oncology [address] [place] [address] Trish Johnson MD [address] [facility] [address] [place] [address] Social History Tobacco Use Types Packs/Day Years Used Date Smoking Tobacco: Never Assessed Sex and Gender Information Value Date Recorded Sex Assigned at Not on file Legal Sex Male 7:51 PM EDT Gender Identity Not on file Sexual Orientation Not on file documented as of this encounter Plan of Treatment Not on file documented as of this encounter Procedures Procedure Name Priority Date/Time Associated Diagnosis Comments CBC WITH AUTO DIFFERENTIAL Routine 02/05/2022 2:09 PM EDT documented in this encounter Results * (ABNORMAL) CBC and Differential (02/05/2022 2:09 PM EDT) External WBC 3.6(L) 3.8 - 10.8 K/uL [facility] External Red Blood Cell (RBC) 4.72 4.20 - 5.80 M/uL [facility] External Hemoglobin 14.7 14.0 - 18.0 G/DL [facility] External Hematocrit 43.4 40.0 - 52.0 % [facility] External MCV 92 80 - 100 fL [facility] External MCH 31 26 - 35 PG [facility] External MCHC 34 32 - 36 G/DL [facility] External RDW 13.4 11.0 - 15.0 % [facility] External Mean Platelet Volume 9.1 6.2 - 10.5 fL [facility] External Platelets 153 130 - 400 K/uL [facility] External Neutrophil# 2.0 1.6 - 8.4 K/uL [facility] External Lymphocyte# 1.3 0.4 - 5.1 K/uL [facility] External Absolute Monocyte (Abs Walker) 0.2 0.0 - 1.2 K/uL [facility] External Eosinophils# 0.1 0.0 - 0.8 K/uL [facility] External Baso# 0.0 0.0 - 0.3 K/uL [facility] External Neutrophils % 55.4 42.0 - 78.0 % [facility] External Lymphocyte % 35.9 11.0 - 47.0 % [facility] External Monocyte % 6.3 0.0 - 11.0 % [facility] External Eosinophil% 1.7 0.0 - 7.0 % [facility] External Basophil % 0.7 0.0 - 3.0 % [facility] External Nucleated RBC%-Auto 0.2 0.0 - 0.9 % [facility] External Nucleated RBC Absolute 0.01 Not Estab. K/uL [facility] 02/05/2022 2:09 PM EDT 02/05/2022 7:18 PM EDT us Trish Johnson MD LAB BLOOD ORDERABLES Final Re sult Performing Organization Address City/State/[facility] Co de Phone Number [facility] [address] [place] [address], documented in this encounter Visit Diagnoses Not on filedocumented in this encounter Care Teams Youth Development Specialist Relationship Specialty Start Date End Date Unknown, Unknown [place], [place] PCP - General 10/10/21 documented as of this encounter
--- OUTSIDE RECORDS SUMMARY | 2025-08-20 15:42 | XMS_ITS | Encounter Summary ---
Author Organization Healthcare Address [address] [place] [address] Care Team Providers Care Field Nurse Case Manager Name Role Phone Unknown, Unknown Primary Care Provider Unavailab le Encounter Details Date Type Department Care Team (Late st Contact Info) Description 02/05/2022 Orders Only [facility] Medical Oncology [address] [place] [address] Trish Johnson MD [address] [address] Social History Tobacco Use Types Packs/Day [...] Procedure Name Priority Date/Time Associated Diagnosis Comments PROTEIN ELECTROPHORESIS, SERUM Routine 02/05/2022 2:09 PM EDT documented in this encounter Results * (ABNORMAL) Protein electrophoresis, serum (02/05/2022 2:09 PM EDT) External Total Protein 7.3 6.1 - 8.1 g/dL [facility] Comment: TEST PERFORMED AT: [employer] [address] [address] MACK SOLIMAN MD External Albumin 4.4 3.8 - 4.8 g/dL [facility] External Uemxa-7-Eimftbjpj 0.3 0.2 - 0.3 g/dL [facility] External Glawr-0-Toyxypjrv 0.7 0.5 - 0.9 g/dL [facility] External Fpjs-6-Xssktrmf 0.4 0.4 - 0.6 g/dL [facility] External Yckm-6-Fvgeasfr 0.3 0.2 - 0.5 g/dL [facility] External Gamma Globulin 1.2 0.8 - 1.7 g/dL [facility] External Abnormal Protein Band 1 0.7(H) NONE DETECTED g/dL [facility] External Immunofixation Interpretation SEE BELOW [facility] Comment: An abnormal protein band is detected in the gamma globulins and may represent a monoclonal immunoglobulin or light chain. Immunofixation analysis is available if identification of the band(s) is clinically indicated. TEST PERFORMED AT: [employer] [address] [address] MACK SOLIMAN MD 02/05/2022 2:09 PM EDT 02/05/2022 7:20 PM EDT us Trish Johnson MD LAB BLOOD ORDERABLES Final Re sult [facility] [address] [place] [address], documented in this encounter Visit Diagnoses Not on filedocumented in this encounter Care Teams Field Nurse Case Manager Relationship Specialty Start Date End Date Unknown, Unknown [place], [place] PCP - General 10/10/21 documented as of this encounter
--- OUTSIDE RECORDS SUMMARY | 2025-08-20 15:42 | XMS_ITS | Encounter Summary ---
Author Organization Healthcare Address [address] [place] [address] Care Team Providers Care Mobile Paint Specialist Name Role Phone Unknown, Unknown Primary Care Provider Unavailab le Encounter Details Date Type Department Care Team (Late st Contact Info) Description 11/11/2021 [facility] Medical Oncology [address] [place] [address] Trish Johnson MD [address] [phone] Social History Tobacco Use Types Packs/Day Years [...] Procedure Name Priority Date/Time Associated Diagnosis Comments URIC ACID, PLASMA Routine 11/11/2021 10: 19 AM EST documented in this encounter Results * Uric Acid, Plasma (11/11/2021 10:19 AM EST) External Uric Acid 5.5 3.4 - 7.5 mg/dL [facility] 11/11/2021 10:1 9 AM EST 11/11/2021 2:42 PM EST us Trish Johnson MD LAB BLOOD ORDERABLES Final Re sult [facility] [address] [place] [address], documented in this encounter Visit Diagnoses Not on filedocumented in this encounter Care Teams Mobile Paint Specialist Relationship Specialty Start Date End Date Unknown, Unknown [place], [place] PCP - General 10/10/21 documented as of this encounter
--- OUTSIDE RECORDS SUMMARY | 2025-08-20 15:42 | XMS_ITS ---
Author Organization [facility] , [facility] Address [address] [place] [address] Phone Care Team Providers Care Billing Department Supervisor Name Role Phone Earl SULTANA, Dean Talamantes Unavailable [phone] BERTHA SULTANA, JANETT Horan Primary Care Provider [phone] Problems Includes: Active, inactive, and resolved Problems All Visits Onset Date Resolved Date Provider Condition S tatus Joint Pain Left Knee 10/04/2023 Kris Fofana PA-C Active Last Documented On 3 1:08PM ; [facility], [facility] Joint Pain Right Knee 09/23/2022 Dean Elliott MD Active Last Documented On 2 4:23PM ; [facility], [facility] Plan of Treatment Pending Tests Order Diagnosis Results Due Ordering P rovider Radiology - Ultrasound Referral Doppler 01/08 11/01 Nimco Gilmore PA-C Last Documented On 3 10:51AM ; [facility], [facility] Radiology - MRI MRI Knee Pain in left knee 10/26/23 Rylan Fofana PA-C Last Documented On 4 12:00PM ; [facility], [facility] Instructions to patient Lose weight Last Documented On 4 2:54PM ; [facility] Lose weight Last Documented On 4 9:26AM ; [facility] Lose weight Last Documented On 3 1:08PM ; [facility] Lose weight Last Documented On 3 9:48AM ; [facility], [facility] Lose weight Last Documented On 3 10:21AM ; [facility] Lose weight Last Documented On 3 2:21PM ; [facility] Lose weight Last Documented On 3 11:18AM ; [facility] Lose weight Last Documented On 2 3:10PM ; [facility] Assessments Includes: Assessments for all patient encounters Findings Encounter Date Overweight Follow Up with Kris Tenorio 10/12/2023 Last Documented On 4 12:00PM ; [facility] Instructions Includes: Instructions for all patient encounters Instructions to patient Lose weight Last Documented On 4 2:54PM ; [facility] Lose weight Last Documented On 4 9:26AM ; [facility] Lose weight Last Documented On 3 1:08PM ; [facility] Lose weight Last Documented On 3 9:48AM ; [facility] Lose weight Last Documented On 3 10:21AM ; [facility] Lose weight Last Documented On 3 2:21PM ; [facility] Lose weight Last Documented On 3 11:18AM ; [facility] Lose weight Last Documented On 2 3:10PM ; [facility] Medical Equipment - Implanted Devices Includes: Current and historical Devices No Medical Equipment Recorded Medications Includes: Current and historical Medications Current Medications (continue as prescribed) amLODIPine Besy-Benazepril H Cl 2.5-10 MG Oral Capsule 09/09/2022 Provider: EDUIN GILLETTE MD Diagnosis: Last Documented On 2 4:24PM By Roland Baldwin ; [facility], [facility] Rosuvastatin Calcium 10 MG Oral Tablet 08/26/2022 Pr ovider: JANETT STONE MD Diagnosis: Last Documented On 2 4:24PM By Roland Baldwin ; [facility] Allopurinol 300 MG Oral Tablet 07/20/2022 Provider: Sheridan Coffey APRN Diagnosis: Last Documented On 2 4:24PM By Roland Baldwin ; [facility], [facility] Past Medications on file Meloxicam 15 MG Oral Tablet 10/04/2023 - 12/03/2023 Pr ovider: rKis Fofana PA-C Diagnosis: once a day Last Documented On 3 2:03PM By Netta Paulino ; [facility] Meloxicam 7.5 MG Oral Tablet 12/28/2022 - 03/28/2023 Provider: Dean Gibson MD Diagnosis: Take 1 tablet by mouth daily Last Documented On 3 3:05PM By Niranjan Bobo ; [facility] Vitamin D3 50 MCG (1999 [place]) Oral Tablet 11/04/2022 - 01/03/2023 Provider: Dean Gibson MD Diagnosis: Take 1 tablet by mouth daily Last Documented On 3 3:36PM By Dean Elliott ; [facility] Aspirin EC 81 MG Oral Tablet Delayed Release 11/04/2022 - 12/16/2022 Provider: Dean Elliott MD Diagnosis: Take 1 tablet by mouth every 12 hours for 42 days post op Last Documented On 3 3:35PM By Dean Elliott ; [facility], [facility] Cefadroxil 500 MG Oral Capsule 11/04/2022 - 11/07/2022 Provider: Dean Gibson MD Diagnosis: Take 1 tablet by mouth every 12 hours for 3 days Last Documented On 3 3:35PM By Dean Elliott ; [facility] Acetaminophen 500 MG Oral Tablet 11/04/2022 - 11/18/2022 Provider: Dean Gibson MD Diagnosis: Take 2 tablets by mouth every 8 hours Last Documented On 3 3:35PM By Dean Elliott ; [facility] Meloxicam 15 MG Oral Tablet 11/04/2022 - 11/18/2022 Pr ovider: Dean Elliott MD Diagnosis: once a day Last Documented On 3 3:35PM By Dean Elliott ; [facility] traMADol HCl 50 MG Oral Tablet 11/04/2022 - 11/12/2022 Provider: Dean Gibson MD Diagnosis: 2 tablets every 6 hours for break through pain Last Documented On 3 3:35PM By Dean Elliott ; [facility] oxyCODONE HCl 5 MG Oral Tablet 11/04/2022 - 11/14/2022 Provider: Dean Gibson MD Diagnosis: Take 1 tablet by mouth every 4-6hrs for moderate pain Last Documented On 3 3:35PM By Dean Elliott ; [facility], [facility] Colace 100 MG Oral Capsule 11/04/2022 - 02/02/2023 Pro vider: Dean Elliott MD Diagnosis: Take 1-2 capsules daily as needed Last Documented On 3 3:35PM By Dean Elliott ; [facility] Ondansetron HCl 4 MG Oral Tablet 11/04/2022 - 11/11/2022 Provider: Dean Gibson MD Diagnosis: 1 po q 6h prn nausea Last Documented On 3 3:35PM By Dean Elliott ; [facility], [facility] busPIRone HCl 10 MG Oral Tablet 09/09/2022 - 10/13/2022 Provider: JANIS Low MD Diagnosis: Last Documented On 3 12:42PM By Jing Avery ; [facility], [facility] busPIRone HCl 10 MG Oral Tablet 08/09/2022 - 10/13/2022 Provider: JANIS Low MD Diagnosis: Last Documented On 3 12:42PM By Jing Avery ; [facility], [facility] Medications Administered Includes: Administered Medications in patient's chart No Administered Medications Recorded Results Includes: Results from 08/20/2024 through 08/20/2025 No Results Recorded For Specified Dates History of Present Illness History of Present Illness not supported for this document type No History of Present Illness Recorded Social History Description Last Updated Alcohol use 03/01/2023 Last Documented On 3 10:47AM ; [facility], [facility] Exercising regularly 03/01/2023 Last Documented On 3 10:47AM ; [facility] No caffeine use 12/28/2022 Last Documented On 3 2:47PM ; [facility], [facility] No recent change in diet 12/28/2022 Last Documented On 3 2:47PM ; [facility], [facility] Not a current smoker. 12/28/2022 Last Documented On 3 2:47PM ; [facility], [facility] Not using drugs 12/28/2022 Last Documented On 3 2:47PM ; [facility], [facility] Tobacco non-user 09/24/2022 Last Documented On 2 2:58PM ; [facility], [facility] Smoking Status Unknown Procedures and Surgical History Surgical History Last Updated History of hernia repair 12/29/2022 Last Documented On 3 2:47PM ; [facility], [facility] Medical History Includes: Medical History in patient's chart Description Last Updated Past surgical history non-contributory 0 12/29/2022 Last Documented On 3 2:47PM ; [facility], [facility] History of History of Gallbladder 2022 Last Documented On 3 2:47PM ; [facility], [facility] Family History Includes: Family History in patient's chart Description Last Updated No significant family history 12/28/2022 Last Documented On 3 2:47PM ; [facility] Review of Systems Review of Systems not supported for this document type No Review of Systems Recorded Mental Status Description No anxiety Functional Status No Functional Status Recorded Physical Exam Physical Exam not supported for this document type No Physical Exam Recorded Allergies Includes: Active, inactive, and resolved Allergies No Known Allergies Insurance Includes: Active Insurance Policies Plan Name Member ID Group # Subscriber Relationship Effect yani Dates 1 - Medicare Part B [facility] [id number] Ti Enriqueyer Self 11/10/2017 - Unknown 2 - [facility] [id number] Ti Reyna Self 09/20/2017 - Unknown Clinical Notes Includes: Signed Clinical Notes starting from 09/23/2022 No Clinical Notes Recorded
--- OUTSIDE RECORDS SUMMARY | 2025-08-20 15:42 | XMS_ITS | Encounter Summary ---
Author Organization Healthcare Address [address] [place] [address] Care Team Providers Care Chief Estimator Name Role Phone Unknown, Unknown Primary Care Provider Unavailab le Encounter Details Date Type Department Care Team (Late st Contact Info) Description 11/13/2021 Orders Only [facility] Medical Oncology [address] [place] [address] Trish Johnson MD [address] [phone] Social History Tobacco Use Types [...] Procedure Name Priority Date/Time Associated Diagnosis Comments IMMUNOFIXATION W/FREE LIGHT CHAINS, QUANT, URINE Routine 11/13/2021 11:13 AM EST documented in this encounter Results * Immunofixation w/Free Light Chains, Quant, Urine (11/13/2021 11:13 AM EST) External Urine Immunofixation Interpretation SEE BELOW [facility] Comment: No abnormal protein bands (Bence-Sharpe proteinuria) detected. TEST PERFORMED AT: [facility] [address] [address] MACK SOLIMAN MD 11/13/2021 11:1 3 AM EST 11/13/2021 1:42 PM EST Trish Johnson MD LAB URINE ORDERABLES Final Re sult [facility] [address] [place] [address], documented in this encounter Visit Diagnoses Not on filedocumented in this encounter Care Teams Chief Estimator Relationship Specialty Start Date End Date Unknown, Unknown [place], [place] PCP - General 10/10/21 documented as of this encounter
--- OUTSIDE RECORDS SUMMARY | 2025-08-20 15:42 | XMS_ITS | Encounter Summary ---
Author Organization Healthcare Address [address] [place] [address] Care Team Providers Care Label Designer Name Role Phone Unknown, Unknown Primary Care Provider Unavailab le Encounter Details Date Type Department Care Team (Late st Contact Info) Description 11/11/2021 Orders Only [facility] [address] [place] [address] Trish Johnson MD [address] [phone] Social History Tobacco Use Types [...] Procedure Name Priority Date/Time Associated Diagnosis Comments RHEUMATOID FACTOR, PLASMA Routine 11/11/2021 10:19 AM EST documented in this encounter Results * (ABNORMAL) Rheumatoid Factor, Plasma (11/11/2021 10:19 AM EST) External Rheumatoid Factor 14.0(H) 0.0 - 13.9 IU/mL [facility] 11/11/2021 10:1 9 AM EST 11/11/2021 2:42 PM EST us Trish Johnson MD LAB BLOOD ORDERABLES Final Re sult [facility] [address] [place] [address], documented in this encounter Visit Diagnoses Not on filedocumented in this encounter Care Teams Label Designer Relationship Specialty Start Date End Date Unknown, Unknown [place] PCP - General 10/10/21 documented as of this encounter
--- OUTSIDE RECORDS SUMMARY | 2025-08-20 15:42 | XMS_ITS | Clinical Summary ---
Author Organization [facility] Address [address] [place] [address] Phone Care Team Providers Care Seo Professional Name Role Phone Earl SULTANA, Dean Talamantes Unavailable [phone] JANETT STONE MD Primary Care Provider [phone] Reason for Visit and Chief Complaint The Chief Complaint is: L knee fu, 1 yr R UKA Problems Includes: Problems addressed during this encounter and other active Problems All Visits Onset Date Resolved Date Provider Condition S tatus Joint Pain Left Knee 10/04/2023 Kris Fofana PA-C Active Last Documented On 3 1:08PM ; [facility], [facility] Joint Pain Right Knee 09/23/2022 Dean Elliott MD Active Last Documented On 2 4:23PM ; [facility], [facility] Plan of Treatment Pending Tests Order Diagnosis Results Due [facility] MRI Knee Pain in left knee 10/26/23 Rylan Fofana PA-C Last Documented On 4 12:00PM ; [facility], [facility] Instructions to patient Lose weight Last Documented On 4 2:54PM ; [facility], [facility] Assessments Includes: Assessments from this encounter Findings Fall Risk Assessment: - Last Documented On 11/08/2023 3:46PM ; [facility], [facility] This patient has been identified as a fall risk. Balance/gait along with postural blood pressure, vision and home fall hazards have been assessed. Medications have been reviewed, and recommendations made with regard to contributing factors for future falls. - Last Documented On 11/08/2023 3:46PM ; [facility] Plan of care: Consideration of vitamin D supplementation along with balance and strength training with consideration for formal physical therapy has been discussed with the patient. - Last Documented On 11/08/2023 3:46PM ; [facility] One year status post right TKA - Last Documented On 11/08/2023 3:46PM ; [facility] Patient is doing very well today in regards to the right knee. X-rays today show no signs of implant complication or loosening. Okay to continue activities as tolerated. He will follow up at 5 years postop for re-evaluation. Reinforced lifetime antibiotic prophylaxis prior to dental procedures. He is to call with any concerns in the meantime. - Last Documented On 11/08/2023 3:46PM ; [facility] Osteoarthritis of the left knee with large medial meniscus tear - Last Documented On 11/08/2023 3:46PM ; [facility] Discussed multiple treatment options with the patient today. He does feel some slight improvement today. He would like to hold off on scheduling any surgery as of now. I did advise patient that his best option for definitive treatment would be unilateral knee replacement for his medial compartment arthritic changes and meniscus tear. He is open to the idea in the future if he does not make progress with conservative management. He will follow up in 2 months for a recheck at which point we can repeat a cortisone injection if needed. He is to call with any concerns in the meantime. - Last Documented On 11/08/2023 3:46PM ; [facility] Instructions Includes: Instructions from this encounter Instructions to patient Lose weight Last Documented On 4 2:54PM ; [facility] Medical Equipment - Implanted Devices Includes: Current Devices No Medical Equipment Recorded Medications Includes: Medications discussed during this encounter and other current Medications Current Medications (continue as prescribed) amLODIPine Besy-Benazepril H Cl 2.5-10 MG Oral Capsule 09/09/2022 Provider: EDUIN GILLETTE MD Diagnosis: Last Documented On 2 4:24PM By Roland Baldwin ; [facility], [facility] Rosuvastatin Calcium 10 MG Oral Tablet 08/26/2022 Pr ovider: JANETT STONE MD Diagnosis: Last Documented On 2 4:24PM By Roland Baldwin ; [facility] Allopurinol 300 MG Oral Tablet 07/20/2022 Provider: Sheridan Coffey APRN Diagnosis: Last Documented On 2 4:24PM By Roland Baldwin ; [facility] Past Medications on file Meloxicam 15 MG Oral Tablet 10/04/2023 - 12/03/2023 Pr ovider: Kris Fofana PA-C Diagnosis: once a day Last Documented On 3 2:03PM By Nteta Paulino ; [facility], [facility] Meloxicam 7.5 MG Oral Tablet 12/28/2022 - 03/28/2023 Provider: Dean Gibson MD Diagnosis: Take 1 tablet by mouth daily Last Documented On 3 3:05PM By Niranjan Bobo ; [facility], [facility] Vitamin D3 50 MCG (1999 [place]) Oral Tablet 11/04/2022 - 01/03/2023 Provider: Dean Gibson MD Diagnosis: Take 1 tablet by mouth daily Last Documented On 3 3:36PM By Dean Elliott ; [facility], [facility] Aspirin EC 81 MG Oral Tablet Delayed Release 11/04/2022 - 12/16/2022 Provider: Dean Elliott MD Diagnosis: Take 1 tablet by mouth every 12 hours for 42 days post op Last Documented On 3 3:35PM By Dean Elliott ; [facility], [facility] Cefadroxil 500 MG Oral Capsule 11/04/2022 - 11/07/2022 Provider: Dean Gibson MD Diagnosis: Take 1 tablet by mouth every 12 hours for 3 days Last Documented On 3 3:35PM By Dean Elliott ; [facility], [facility] Acetaminophen 500 MG Oral Tablet 11/04/2022 - 11/18/2022 Provider: Dean Gibson MD Diagnosis: Take 2 tablets by mouth every 8 hours Last Documented On 3 3:35PM By Dean Elliott ; [facility], [facility] Meloxicam 15 MG Oral Tablet 11/04/2022 - 11/18/2022 Pr ovider: Dean Elliott MD Diagnosis: once a day Last Documented On 3 3:35PM By Dean Elliott ; [facility], [facility] traMADol HCl 50 MG Oral Tablet 11/04/2022 - 11/12/2022 Provider: Dean Gibson MD Diagnosis: 2 tablets every 6 hours for break through pain Last Documented On 3 3:35PM By Dean Elliott ; [facility], [facility] oxyCODONE HCl 5 MG Oral Tablet 11/04/2022 - 11/14/2022 Provider: Dean Gibson MD Diagnosis: Take 1 tablet by mouth every 4-6hrs for moderate pain Last Documented On 3 3:35PM By Dean Elliott ; [facility] Colace 100 MG Oral Capsule 11/04/2022 - 02/02/2023 Pro vider: Dean Elliott MD Diagnosis: Take 1-2 capsules daily as needed Last Documented On 3 3:35PM By Dean Elliott ; [facility], [facility] Ondansetron HCl 4 MG Oral Tablet 11/04/2022 - 11/11/2022 Provider: Dean Gibson MD Diagnosis: 1 po q 6h prn nausea Last Documented On 3 3:35PM By Dean Elliott ; [facility], [facility] Medications Administered Includes: Administered Medications from this encounter No Administered Medications Recorded Vital Signs Includes: Vital Signs from this encounter Vital Name 11/08/2023 03:00P Height (in) 75 Weight (lb) 250 Body Mass Index 31.2 Body Surface Area 2.4 Note: mgg Last Documented: On 11/08/2023 3:13PM ; [facility], [facility] Results Includes: Results discussed during this encounter No Results Recorded For Specified Dates History of Present Illness Includes: History of Present Illness from this encounter RUSTY Renya is a 72 year old male. - Allergy list reviewed - Problem list reviewed - Medication list reviewed Patient presents today 1 year status post right TKA. He reports no pain today from the right knee. He is very happy with his postoperative progress. Patient also presents today to review MRI results of the left knee. He is still having persistent discomfort over the medial aspect of the knee. He does however feel that it is continued to improve slowly with rest, ice, and topical Voltaren gel. He has been taking meloxicam as well. Social History Description Last Updated Alcohol use 03/01/2023 Last Documented On 4 2:54PM ; [facility] Exercising regularly 03/01/2023 Last Documented On 4 2:54PM ; [facility] No caffeine use 12/28/2022 Last Documented On 4 2:54PM ; [facility] No recent change in diet 12/28/2022 Last Documented On 4 2:54PM ; [facility] Not a current smoker. 12/28/2022 Last Documented On 4 2:54PM ; [facility] Not using drugs 12/28/2022 Last Documented On 4 2:54PM ; [facility] Tobacco non-user 09/24/2022 Last Documented On 4 2:54PM ; [facility] Smoking Status Unknown Procedures and Surgical History Includes: Procedures from this encounter Procedures Code Diagnosis Performing Provider Service L ocation Service Date use of tobacco assessment performed 1000F Last Documented On 4 2:54PM ; [facility] patient screened for future fall risk: documentation of any fall with injury in past year 1100F Last Documented On 4 2:54PM ; [facility] review of medications documented 1160F Last Documented On 4 2:54PM ; [facility] an X-ray was performed 46139 Last Documented On 4 2:54PM ; [facility] Surgical History Last Updated History of hernia repair 12/29/2022 Last Documented On 4 2:54PM ; [facility] Medical History Includes: Medical History addressed during this encounter Description Last Updated Past surgical history non-contributory 0 12/29/2022 Last Documented On 4 2:54PM ; [facility] History of History of Gallbladder 2022 Last Documented On 4 2:54PM ; [facility] Family History Includes: Family History addressed during this encounter Description Last Updated No significant family history 12/28/2022 Last Documented On 4 2:54PM ; [facility] Review of Systems Includes: Review of Systems from this encounter Systemic: Not feeling tired, no recent weight loss, and no recent weight gain. Head: No headache and no sinus pain. Eyes: No vision problems, no Cataracts, no Glasses/Contacts, and no Glaucoma. Otolaryngeal: No hearing loss and no tinnitus. Cardiovascular: No chest pain or discomfort, no palpitations, no Hypertension, and no High Cholesterol. Pulmonary: No daytime asthma symptoms and no chronic cough. No wheezing. Gastrointestinal: No heartburn and no abdominal pain. No Indigestion, no Acid Reflux, no Peptic Ulcer, no GI Stomach Bleed, and no Ulcers. Endocrine: No hot flashes, no muscle weakness, no Diabetes, no Hypothyroid, and no Hyperthyroid. Hematologic: No easy bleeding, no tendency for easy bruising, and no Anemia. Musculoskeletal: No Arthritis and no lower back pain. No soft tissue swelling and no localized joint pain. Neurological: No dizziness, no convulsions, and no numbness. Psychological: No anxiety, no emotional lability, no depression, and no insomnia. Not crying for no reason. Skin: No dry skin. No Ulcers, no Scars, and no rash. Allergic and Immunologic: No complaint of seasonal allergic reaction. Mental Status Includes: Mental Status from this encounter Description No anxiety Functional Status Includes: Functional Status from this encounter No Functional Status Recorded Physical Exam Includes: Physical Exam from this encounter Allergies Includes: Active Allergies No Known Allergies Encounters Encounter Provider Location Date Check-In Time Check- Out Time Diagnosis Follow Up Kris Fofana PA-C [facility] 4 2:50PM 3:32PM Insurance Includes: Active Insurance Policies Plan Name Member ID Group # Subscriber Relationship Effect yani Dates 1 - Medicare Part B [facility] [id number] Ti Reyna Self 11/10/2017 - Unknown 2 - [facility] [id number] Ti Gomez 09/20/2017 - Unknown Clinical Notes Includes: Clinical Notes from this encounter * Progress note Date Encounter Last Documented by 11/08/2023 Follow Up Last documented on 11/08/2023; 3:46 PM, Kris Cruz; [facility] Active Problems & Conditions - Joint Pain in the Left Knee - Joint Pain in the Right Knee Chief Complaint The Chief Complaint is: L knee fu, 1 yr R UKA. Referred Here Referred by Dr. Ray. History of Present Illness Ti Reyna is a 72 year old male. - Allergy list reviewed - Problem list reviewed - Medication list reviewed Patient presents today 1 year status post right TKA. He reports no pain today from the right knee. He is very happy with his postoperative progress. Patient also presents today to review MRI results of the left knee. He is still having persistent discomfort over the medial aspect of the knee. He does however feel that it is continued to improve slowly with rest, ice, and topical Voltaren gel. He has been taking meloxicam as well. Current Medication - Allopurinol 300 MG Oral Tablet 90 days, 0 refills - amLODIPine Besy-Benazepril HCl 2.5-10 MG Oral Capsule 90 days, 0 refills - Meloxicam 15 MG Oral Tablet once a day, 30 days, 1 refills - Rosuvastatin Calcium 10 MG Oral Tablet 90 days, 0 refills Past Medical/Surgical History Past surgical history non-contributory. Surgical: - Hernia repair - History of Gallbladder Social History Not a current smoker. Current diet: No recent change in diet. Caffeine use: No caffeine use. Tobacco use: Tobacco non-user. Alcohol: Alcohol use. Drug Use: Not using drugs. Habits: Exercising regularly. Allergies - No Known Allergies Family History No significant family history Review Of Systems Systemic: Not feeling tired, no recent weight loss, and no recent weight gain. Head: No headache and no sinus pain. Eyes: No vision problems, no Cataracts, no Glasses/Contacts, and no Glaucoma. Otolaryngeal: No hearing loss and no tinnitus. Cardiovascular: No chest pain or discomfort, no palpitations, no Hypertension, and no High Cholesterol. Pulmonary: No daytime asthma symptoms and no chronic cough. No wheezing. Gastrointestinal: No heartburn and no abdominal pain. No Indigestion, no Acid Reflux, no Peptic Ulcer, no GI Stomach Bleed, and no Ulcers. Endocrine: No hot flashes, no muscle weakness, no Diabetes, no Hypothyroid, and no Hyperthyroid. Hematologic: No easy bleeding, no tendency for easy bruising, and no Anemia. Musculoskeletal: No Arthritis and no lower back pain. No soft tissue swelling and no localized joint pain. Neurological: No dizziness, no convulsions, and no numbness. Psychological: No anxiety, no emotional lability, no depression, and no insomnia. Not crying for no reason. Skin: No dry skin. No Ulcers, no Scars, and no rash. Allergic and Immunologic: No complaint of seasonal allergic reaction. Physical Findings - Vitals taken 11/08/2023 03:00 pm mgg Height 75 in Weight 250 lbs Body Mass Index 31.2 kg/m2 Body Surface Area 2.4 m2 Tests X-rays performed today 3 views of the right knee: Implants appear in overall good alignment and position no signs of loosening and no signs of osteolysis no other bony or osseous abnormality I did review MRI results of the patient's left knee him today. MRI does show complex oriented tear in the posterior aspect of the medial meniscus. There is a large amount of bony edema in the medial tibial plateau. For this significant osteoarthritic changes in the medial compartment of the left knee. Minimal patellofemoral arthritis. Previous Tests Imaging: X-Ray: An X-ray was performed. Counseling/Education - Lose weight User Defined 5 Fall Risk Assessment: This patient has been identified as a fall risk. Balance/gait along with postural blood pressure, vision and home fall hazards have been assessed. Medications have been reviewed, and recommendations made with regard to contributing factors for future falls. Plan of care: Consideration of vitamin D supplementation along with balance and strength training with consideration for formal physical therapy has been discussed with the patient. One year status post right TKA Patient is doing very well today in regards to the right knee. X-rays today show no signs of implant complication or loosening. Okay to continue activities as tolerated. He will follow up at 5 years postop for re-evaluation. Reinforced lifetime antibiotic prophylaxis prior to dental procedures. He is to call with any concerns in the meantime. Osteoarthritis of the left knee with large medial meniscus tear Discussed multiple treatment options with the patient today. He does feel some slight improvement today. He would like to hold off on scheduling any surgery as of now. I did advise patient that his best option for definitive treatment would be unilateral knee replacement for his medial compartment arthritic changes and meniscus tear. He is open to the idea in the future if he does not make progress with conservative management. He will follow up in 2 months for a recheck at which point we can repeat a cortisone injection if needed. He is to call with any concerns in the meantime. Notes This dictation was done with voice recognition software and may contain errors and omissions. Practice Management Use of tobacco assessment performed and patient screened for future fall risk documentation of any fall with injury in past year Review of medications documented. Care Team - JANETT STONE MD - LITIGATION LEGAL ASSISTANT Health Reminders - Assess BMI satisfied 11/08/2023. - Assess Tobacco Use satisfied 11/08/2023. - Follow Up Plan BMI Management satisfied 11/08/2023.
--- OUTSIDE RECORDS SUMMARY | 2025-08-20 15:42 | XMS_ITS | Encounter Summary ---
Author Organization [facility] Address [address] [place] [address] Care Team Providers Care Storage Administrator Name Role Phone Unknown, Unknown Primary Care Provider Unavailab le Encounter Details Date Type Department Care Team (Late st Contact Info) Description 02/05/[address] [facility] Medical Oncology [address] [place] [address] Trish Johnson MD [address] [address] Social History Tobacco Use Types [...] Name Priority Date/Time Associated Diagnosis Comments IMMUNOFIXATION ELECTROPHORESIS Routine 02/05/2022 2:09 PM EDT documented in this encounter Results * Immunofixation Electrophoresis (02/05/2022 2:09 PM EDT) External Immunofixation Interpretation SEE BELOW [facility] Comment: An IgG (kappa) 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 TEST PERFORMED AT: [facility] [address] [address] MACK SOLIMAN MD 02/05/2022 2:09 PM EDT 02/05/2022 7:20 PM EDT us Trish Johnson MD LAB BLOOD ORDERABLES Final Re sult [facility] [address] [place] [address], documented in this encounter Visit Diagnoses Not on filedocumented in this encounter Care Teams Storage Administrator Relationship Specialty Start Date End Date Unknown, Unknown [place], [place] PCP - General 10/10/21 documented as of this encounter
--- OUTSIDE RECORDS SUMMARY | 2025-08-20 15:42 | XMS_ITS | Encounter Summary ---
Author Organization Healthcare Address [address] [place] [address] Care Team Providers Care Race Car Mechanic Name Role Phone Unknown, Unknown Primary Care Provider Unavailab le Encounter Details Date Type Department Care Team (Late st Contact Info) Description 11/11/2021 Orders Only [facility] Medical Oncology [address] [place] [address] Trish Johnson MD [address] [id number] Social History Tobacco Use Types Packs/Day Years [...] Procedure Name Priority Date/Time Associated Diagnosis Comments SEDIMENTATION RATE, AUTOMATED Routine 11/11/2021 10:19 AM EST documented in this encounter Results * Sedimentation Rate, Automated (11/11/2021 10:19 AM EST) External Erythrocyte Sedimentation Rate 8 0 - 19 MM [facility] 11/11/2021 10:1 9 AM EST 11/11/2021 2:43 PM EST us Trish Johnson MD LAB BLOOD ORDERABLES Final Re sult [facility] [address] [place] [address], [place] [phone] documented in this encounter Visit Diagnoses Not on filedocumented in this encounter Care Teams Race Car Mechanic Relationship Specialty Start Date End Date Unknown, Unknown [place], [place] PCP - General 10/10/21 documented as of this encounter
--- OUTSIDE RECORDS SUMMARY | 2025-08-20 15:42 | XMS_ITS | Encounter Summary ---
Author Organization Healthcare Address [address] [place] [address] Care Team Providers Care Box Worker Name Role Phone Unknown, Unknown Primary Care Provider Unavailab le Encounter Details Date Type Department Care Team (Late st Contact Info) Description 11/13/2021 Orders Only [facility] Medical Oncology [address] [place] [address] Trish Johnson MD [address] [address] Social History Tobacco Use Types [...] Priority Date/Time Associated Diagnosis Comments PROTEIN ELECTROPHORESIS, URINE Routine 11/13/2021 11:13 AM EST documented in this encounter Results * Protein Electrophoresis, Urine (11/13/2021 11:13 AM EST) External Creatinine Urine 1.58 0.50 - 2.15 g/24 h [facility] External Protein Creatinine Ratio 53 < OR = 114 mg/g creat [facility] External Urine Protein Creatinine Ratio 0.053 < OR = 0.114 mg/[facility] External Total Protein/Day (24Hr Urine) 84 <150 mg/24 h [facility] Comment: TEST PERFORMED AT: [facility] [address] [address] MACK SOLIMAN MD External Albumin 100 % [facility] External Erevu-1-Ecbkrnpug 0 % [facility] External Hsqgc-9-Jgjmtqwam 0 % [facility] External Beta Globulin 0 % [facility] External Gamma Globulin 0 % [facility] External Interpretation SEE BELOW [facility] Comment: Protein electrophoresis pattern appears normal. TEST PERFORMED AT: [facility] [address] [address] MACK SOLIMAN MD 11/13/2021 11:1 3 AM EST 11/13/2021 1:42 PM EST us Trish Johnson MD LAB URINE ORDERABLES Final Re sult [facility] [address] [place] [address], documented in this encounter Visit Diagnoses Not on filedocumented in this encounter Care Teams Box Worker Relationship Specialty Start Date End Date Unknown, Unknown [place], [place] PCP - General 10/10/21 documented as of this encounter
--- OUTSIDE RECORDS SUMMARY | 2025-08-20 15:42 | XMS_ITS ---
Care Plan - [facility], [facility] Created on: August 20, 2025 Ti Reyna : 1950 Sex: Male Author Organization [facility] , [facility] Address [address] [place] [address] Phone Care Team Providers Care Skid Wrapper Name Role Phone Earl SULTANA, Dean Talamantes Unavailable [phone] BERTHA SULTANA, JANETT Horan Primary Care Provider [phone]
--- OUTSIDE RECORDS SUMMARY | 2025-08-20 15:42 | XMS_ITS | Encounter Summary ---
Author Organization Healthcare Address [address] [place] [address] Care Team Providers Care Warp Worker Name Role Phone Unknown, Unknown Primary Care Provider Unavailab le Encounter Details Date Type Department Care Team (Late st Contact Info) Description 02/05/2022 Orders Only [facility] Medical Oncology [address] [place] [address] Trish Johnson MD [address] [address] Social History Tobacco Use Types [...] Procedure Name Priority Date/Time Associated Diagnosis Comments COMPREHENSIVE METABOLIC PANEL, PLASMA Routine 02/05/2022 2:09 PM EDT documented in this encounter Results * (ABNORMAL) Comprehensive Metabolic Panel, Plasma (02/05/2022 2:09 PM EDT) External Glucose 135(H) 74 - 100 mg/dL [facility] External BUN 13 6 - 20 mg/dL [facility] External Creatinine Blood 0.90 0.70 - 1.28 mg/dL [facility] External BUN/Creat Ratio 14 10 - 20 (calc) [facility] External Sodium 141 136 - 145 mmol/L [facility] External Potassium 4.6 3.4 - 5.0 mmol/L [facility] External Chloride 104 98 - 107 mmol/L [facility] External Carbon Dioxide 26 22 - 31 mmol/L [facility] External Anion Gap (AG) 11 7 - 25 (calc) [facility] External Calcium 9.6 8.6 - 10.2 mg/dL [facility] External Total Protein 7.1 6.4 - 8.3 g/dL [facility] External Albumin 4.7 3.5 - 5.2 g/dL [facility] External Globulin 2.4 1.5 - 4.5 g/dL (calc) [facility] External Albumin/Globulin Ratio 2.0 1.1 - 2.5 (calc) [facility] External Bilirubin Total 0.7 0.1 - 1.2 mg/dL [facility] External Alkaline Phosphatase 78 40 - 129 U/L [facility] External AST (SGOT) 19 0 - 40 U/L [facility] External ALT (SGPT) 24 0 - 41 U/L [facility] External EGFR (If AFR/AM) 100 >=60 [facility] External Estimated GFR 87 >=60 [facility] Comment: NOTE Chronic kidney disease is defined as kidney damage for more than 3 months or a GFR less than 60 mL/min/1.73 m2 for greater than 3 months. This calculation has not been validated in women. For pediatric patients refer to National Kidney Foundation https://www.kidney.org/professionals/KDOQI/gfr_calculatorPed 02/05/2022 2:09 PM EDT 02/05/2022 7:22 PM EDT us Trish Johnson MD LAB BLOOD ORDERABLES Final Re sult [facility] [address] [place] [address], documented in this encounter Visit Diagnoses Not on filedocumented in this encounter Care Teams Warp Worker Relationship Specialty Start Date End Date Unknown, Unknown [place], [place] PCP - General 10/10/21 documented as of this encounter
--- OUTSIDE RECORDS SUMMARY | 2025-08-20 15:42 | XMS_ITS | Encounter Summary ---
Author Organization Healthcare Address [address] [place] [address] Care Team Providers Care Merchandise Displayer Name Role Phone Unknown, Unknown Primary Care Provider Unavailab le Encounter Details Date Type Department Care Team (Late st Contact Info) Description 02/05/2022 Orders Only [facility] Medical Oncology [address] [place] [address] Trish Johnson MD [address] [address] Social History Tobacco Use Types [...] Procedure Name Priority Date/Time Associated Diagnosis Comments BETA 2 MICROGLOBULIN, SERUM (SO) Routine 02/05/2022 2:09 PM EDT documented in this encounter Results * Beta 2 microglobulin,serum (02/05/2022 2:09 PM EDT) External Atjh-3-Awpdluwtc ulin 1.55 < OR = 2.51 mg/L [facility] Comment: TEST PERFORMED AT: [employer] [address] [address] MACK SOLIMAN MD 02/05/2022 2:09 PM EDT 02/05/2022 7:20 PM EDT us Trish Johnson MD LAB BLOOD ORDERABLES Final Re sult [facility] [address] [place] [address], documented in this encounter Visit Diagnoses Not on filedocumented in this encounter Care Teams Merchandise Displayer Relationship Specialty Start Date End Date Unknown, Unknown [place], [place] PCP - General 10/10/21 documented as of this encounter
--- OUTSIDE RECORDS SUMMARY | 2025-08-20 15:42 | XMS_ITS | Encounter Summary ---
Author Organization Healthcare Address [address] [place] [address] Care Team Providers Care Emergency Management Director Name Role Phone Unknown, Unknown Primary Care Provider Unavailab le Encounter Details Date Type Department Care Team (Late st Contact Info) Description 02/05/2022 Orders Only [facility] Medical Oncology [address] [place] [address] Trish Johnson MD [address] [address] Social History Tobacco Use Types [...] Procedure Name Priority Date/Time Associated Diagnosis Comments QUANTITATIVE IMMUNOGLOBULINS Routine 02/05/2022 2:09 PM EDT documented in this encounter Results * Quantitative Immunoglobulins (02/05/2022 2:09 PM EDT) External IgG, Serum 1,246 700 - 1,600 mg/dL [facility] External IgA Quant 74 70 - 400 mg/dL [facility] External IgM Quant 84 40 - 230 mg/dL [facility] 02/05/2022 2:09 PM EDT 02/05/2022 7:22 PM EDT us Trish Johnson MD LAB BLOOD ORDERABLES Final Re sult [facility] [address] [place] [address], documented in this encounter Visit Diagnoses Not on filedocumented in this encounter Care Teams Emergency Management Director Relationship Specialty Start Date End Date Unknown, Unknown [place] PCP - General 10/10/21 documented as of this encounter
--- OUTSIDE RECORDS SUMMARY | 2025-08-20 15:42 | XMS_ITS | Clinical Summary ---
Author Organization [employer] ([place], [place], [place], [place], [place]) Address [address] [place] [address] Care Team Providers Care Informatics Physician Name Role Phone Regan Obrien MD Primary Care Provider [phone] Social History Tobacco Use Types Packs/Day Years Used Date Smoking Tobacco: Never Assessed Food Insecurity Answer Date Recorded Food run out past 12 months Not on file 10/10 Food did not last past 12 months Not on file 10/28/2023 Employment Answer Date Recorded Help finding and keeping a job Not on file 0 10/28/2023 Family and Community Support Answer Kristofer e Recorded Help with Day to Day Activities Not on file 10/28/2023 Feeling Lonely or Isolated Not on file 10/28 Educational Attainment Answer Date Landon rded Speak language other than Angolan at home Not on file 10/28/2023 Want help with school or training Not on file 10/28/2023 Substance Use Answer Date Recorded Used prescription meds for non-medical reasons N ot on file 10/28/2023 Used illegal drugs past 12 months Not on file 10/28/2023 Sex and Gender Information Value Date Recorded Sex Assigned at Not on file Legal Sex Male 5:21 PM CDT Gender Identity Not on file Sexual Orientation Not on file Plan of Treatment Health Maintenance Due Date Last Done Comments Medicare Initial AWV G0438 CT Colonography 1952 Colonoscopy 1950 Colorectal Cancer Screening 1952 FOBT/FIT 1952 Fit-DNA (Cologuard) 1952 Sigmoidoscopy 1952 Depression Screening (12+) 1964 Tobacco Cessation Counseling and Screening (12+) 1964 Hepatitis C Screening 1970 DTAP/TDAP/TD VACCINES (1 - Tdap) 1971 Pneumococcal 50+ years (1 of 1 - PCV) 2002 Shingles Vaccine (Zoster) (1 of 2) 2002 Falls Risk Screening 10/10/2024 COVID-19 VACCINE ( - season) 2025 09/10/2021, 01/22/2021, 01/01/2021 Influenza Vaccine (#1) 2025 06/10/2021 Respiratory Syncytial Virus (RSV) Adult or (1 - 1-dose 75+ series) 2027 Insurance MEDICARE PART A B SUPPL Care Teams Informatics Physician Relationship Specialty Start Date End Date Regan Obrien MD [address] [address] PCP - General General Internal Medicine 01/04/23
--- OUTSIDE RECORDS SUMMARY | 2025-08-20 15:43 | XMS_ITS | Encounter Summary ---
Author Organization [facility] Address [address] [place] [address] Care Team Providers Care Title I Teacher Name Role Phone Unknown, Unknown Primary Care Provider Unavailab le Encounter Details Date Type Department Care Team (Late st Contact Info) Description 11/26/2022 Orders Only [facility] Medical Oncology [address] [place] [address] Trish Johnson MD [address] [address] Social History Tobacco Use Types [...] Date/Time Associated Diagnosis Comments IMMUNOFIXATION ELECTROPHORESIS Routine 11/26/2022 1:45 PM EST documented in this encounter Results * Immunofixation Electrophoresis (11/26/2022 1:45 PM EST) External Immunofixation Interpretation SEE BELOW [facility] Comment: An IgG (kappa) 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 TEST PERFORMED AT: [facility] [address] [address] MACK SOLIMAN 11/26/2022 1:45 PM EST 11/26/2022 7:10 PM EST Trish Johnson MD LAB BLOOD ORDERABLES Final Re sult [facility] [address] [place] [address], [place] [phone] documented in this encounter Visit Diagnoses Not on filedocumented in this encounter Care Teams Title I Teacher Relationship Specialty Start Date End Date Unknown, Unknown [place], [place] PCP - General 10/10/21 documented as of this encounter
--- OUTSIDE RECORDS SUMMARY | 2025-08-20 15:43 | XMS_ITS | Encounter Summary ---
Author Organization Healthcare Address [address] [place] [address] Care Team Providers Care Vocational Coordinator Name Role Phone Unknown, Unknown Primary Care Provider Unavailab le Encounter Details Date Type Department Care Team (Late st Contact Info) Description 11/11/2021 Orders Only [facility] Medical Oncology [address] [place] [address] Trish Johnson MD [address] [address] Social History Tobacco Use [...] Comments BETA 2 MICROGLOBULIN, SERUM (SO) Routine 11/11/2021 10:19 AM EST documented in this encounter Results * Beta 2 microglobulin,serum (11/11/2021 10:19 AM EST) External Ffml-1-Cuahswcio ulin 1.61 < OR = 2.51 mg/L [facility] Comment: TEST PERFORMED AT: [employer] [address] [address] MACK SOLIMAN MD 11/11/2021 10:1 9 AM EST 11/11/2021 2:42 PM EST us Trish Johnson MD LAB BLOOD ORDERABLES Final Re sult [facility] [address] [place] [address], documented in this encounter Visit Diagnoses Not on filedocumented in this encounter Care Teams Vocational Coordinator Relationship Specialty Start Date End Date Unknown, Unknown [place], [place] PCP - General 10/10/21 documented as of this encounter
--- OUTSIDE RECORDS SUMMARY | 2025-08-20 15:43 | XMS_ITS | Clinical Summary ---
Author Organization Healthcare Address [address] [place] [address] Care Team Providers Care Locker Room Manager Name Role Phone Unknown, Unknown Primary Care Provider Unavailab le Medications allopurinol (Zyloprim) 300 MG tablet Take 1 tablet (300 mg) by mouth 1 (one) time each day. 07/20/2022 Active amLODIPine-bella zepril (Lotrel) 2.5-10 MG capsule Take 1 capsule by mouth 1 (one) time each day. 09/09/2022 Active aspirin 81 MG EC tablet Take 1 tablet (81 mg) by mouth 1 (one) time each day. 07/16/2022 Active busPIRone (Buspar) 10 MG tablet Take 1 tablet (10 mg) by mouth twice a day. Active cholecalciferol (Vitamin D-3) 25 MCG (1000 UT) capsule Take by mouth. Active meloxicam (Mobic) 7.5 MG tablet Take 1 tablet (7.5 mg) by mouth 1 (one) time each day. 12/28/2022 Active Polyethylene Glycol 3350 powder Take 17 g by mouth 1 (one) time each day. Active Psyllium (Konsyl-D) 52.3 % powder Take 1 packet by mouth 1 (one) time each day. Active rosuvastatin (Crestor) 5 MG tablet Take 1 tablet (5 mg) by mouth 1 (one) time each day. Active sildenafil (Revatio) 20 MG tablet Take 1 tablet (20 mg) by mouth. 07/27/2022 Active Family History Medical History Relation Name Comments Irritable bowel syndrome Mother Relation Name Status Comments Mother Social History Tobacco Use Types Packs/Day Years Used Date Smoking Tobacco: Former Cigarettes Q uit: 1983 Smokeless Tobacco: Never Tobacco Cessation:Counseling Given: Not Answered Alcohol Use Standard Drinks/Week Comments Yes 0 (1 standard drink = 0.6 oz pur e alcohol) Sex and Gender Information Value Date Recorded Sex Assigned at Not on file Legal Sex Male 7:51 PM EDT Gender Identity Not on file Sexual Orientation Not on file Plan of Treatment Health Maintenance Due Date Last Done Comments [facility]-Depression Screening 1952 [facility]-Hepatitis C Screening 1952 [facility]-Medicare Annual Wellness (AWV) 1952 [facility]-Infant/Child/Adol SDOH Screenings 1952 [facility]- SDOH Screenings 1970 [facility]-Adult SDOH Screenings 1970 [facility]-DTaP,Tdap,and Td Vaccine s (1 - Tdap) 1971 CT Colonography 1997 Colonoscopy 1997 FIT-DNA 1997 FIT 1997 FOBT 1997 Sigmoidoscopy 1997 [facility]-Colorectal Cancer Screening 1997 [facility]-Pneumococcal Vaccine: 50 + Years (1 of 1 - PCV) 2002 [facility]-Zoster Vaccines (1 of 2) 2002 [id number] Vaccine (4 - 2024- season) 2025 09/10/2021, 01/22/2021, 01/01/2021 [facility]-Influenza Vaccine (#1) 06/10/202507/12, 08/14/2018, 07/22/2017 [facility]-RSV Vaccine: 60+ Years o r (1 - 1-dose 75+ series) 2027 HPV Vaccines Aged Out No longer eligi ble based on patient's age to complete this topic [facility]-HIB Vaccines Aged Out No longer e ligible based on patient's age to complete this topic [facility]-Hepatitis A Vaccines Aged Out No longer eligible based on patient's age to complete this topic [facility]-IPV Vaccines Aged Out No longer e ligible based on patient's age to complete this topic [facility]-Rotavirus Vaccines Aged Out No lo nger eligible based on patient's age to complete this topic Insurance [facility] [place] [address] Care Teams Locker Room Manager Relationship Specialty Start Date End Date Unknown, Unknown [place] PCP - General 10/10/21
--- OUTSIDE RECORDS SUMMARY | 2025-08-20 15:43 | XMS_ITS | Encounter Summary ---
Author Organization Healthcare Address [address] [place] [address] Care Team Providers Care Merchant Police Name Role Phone Unknown, Unknown Primary Care Provider Unavailab le Encounter Details Date Type Department Care Team (Late st Contact Info) Description 05/26/2023 Orders Only [facility] Medical Oncology [address] [place] [address] Trish Johnson MD [address] [address] Social History Tobacco Use Types [...] Diagnosis Comments COMPREHENSIVE METABOLIC PANEL, PLASMA Routine 05/26/2023 2:09 PM EDT documented in this encounter Results * (ABNORMAL) Comprehensive Metabolic Panel, Plasma (05/26/2023 2:09 PM EDT) External Glucose 102(H) 74 - 100 mg/dL 05/26/2023 7:46 PM EDT [facility] External BUN 12 6 - 20 mg/dL 05/26/2023 7:46 PM EDT [facility] External Creatinine Blood 0.97 0.70 - 1.28 mg/dL 05/26/2023 7:46 PM EDT [facility] External BUN/Creat Ratio 12 10 - 20 (calc) 05/26/2023 7:46 PM EDT [facility] External Sodium 138 136 - 145 mmol/L 05/26/2023 7:46 PM EDT [facility] External Potassium 4.2 3.4 - 5.0 mmol/L 05/26/2023 7:46 PM EDT [facility] External Chloride 104 98 - 107 mmol/L 05/26/2023 7:46 PM EDT [facility] External Carbon Dioxide 24 22 - 31 mmol/L 05/26/2023 7:46 PM EDT [facility] External Anion Gap (AG) 10 7 - 25 (calc) 05/26/2023 7:46 PM EDT [facility] External Calcium 9.4 8.6 - 10.2 mg/dL 05/26/2023 7:46 PM EDT [facility] External Total Protein 7.4 6.4 - 8.3 g/dL 05/26/2023 7:46 PM EDT [facility] External Albumin 4.4 3.5 - 5.2 g/dL 05/26/2023 7:46 PM EDT [facility] External Globulin 3.0 1.5 - 4.5 023 7:46 PM EDT [facility] External Albumin/Globulin Ratio 1.5 1.1 - 2.5 (calc) 05/26/2023 7:46 PM EDT [facility] External Bilirubin Total 0.4 0.1 - 1.2 mg/dL 05/26/2023 7:46 PM EDT [facility] External Alkaline Phosphatase 70 40 - 129 U/L 05/26/2023 7:46 PM EDT [facility] External AST (SGOT) 22 0 - 40 U/L 05/26/2023 7:46 PM T [facility] External ALT (SGPT) 19 0 - 41 U/L 05/26/2023 7:46 PM T [facility] External Estimated GFR 84 >=60 05/26/2023 7:46 PM EDT [facility] Comment: NOTE New calculation for GFR (CKD-EPI 2020) is formulated without race adjustment factors at the recommendation of the National Kidney Foundation and [place] [employer] Nephrology. This calculation has not been validated in women. For pediatric patients refer to https://www.kidney.org/professionals/KDOQI/gfr_calculatorPed 05/26/2023 2:09 PM EDT 05/26/2023 7:23 PM EDT us Trish Johnson MD LAB BLOOD ORDERABLES Final Re sult [facility] [address] [place] [address], [place] [phone] documented in this encounter Visit Diagnoses Not on filedocumented in this encounter Care Teams Merchant Police Relationship Specialty Start Date End Date Unknown, Unknown [place], [place] PCP - General 10/10/21 documented as of this encounter
--- OUTSIDE RECORDS SUMMARY | 2025-08-20 15:43 | XMS_ITS | Encounter Summary ---
Author Organization Healthcare Address [address] [place] [address] Care Team Providers Care Agronomy Professor Name Role Phone Unknown, Unknown Primary Care Provider Unavailab le Encounter Details Date Type Department Care Team (Late st Contact Info) Description 11/11/2021 Orders Only [facility] Medical Oncology [address] [place] [address] Trish Johnson MD [address] [address] Social History Tobacco Use Types [...] Procedure Name Priority Date/Time Associated Diagnosis Comments MAYTE PANEL W/ REFLEX Routine 11/11/2021 1 0:19 AM EST documented in this encounter Results * MAYTE Panel with Reflex (11/11/2021 10:19 AM EST) External MAYTE Screen NEGATIVE NEGATIVE [facility] Comment: MAYTE IFA is a first line screen for detecting the presence of up to approximately 150 autoantibodies in various autoimmune diseases. A negative MAYTE IFA result suggests an MAYTE-associated autoimmune disease is not present at this time, but is not definitive. If there is high clinical suspicion for Sjogren's syndrome, testing for anti-SS-A/Ro antibody should be considered. Anti-Anjana-1 antibody should be considered for clinically suspected inflammatory myopathies. AC-0: Negative International Consensus on MAYTE Patterns (https://doi.org/10.1515/rnas-9528-0442) For additional information, please refer to http://education.Quest[employer]ostics.Happlink/faq/HIG497 (This link is being provided for informational/ educational purposes only.) TEST PERFORMED AT: [facility] [address] [place] [address] MACK SOLIMAN MD 11/11/2021 10:1 9 AM EST 11/11/2021 2:42 PM EST us Trish Johnson MD LAB BLOOD ORDERABLES Final Re sult [facility] [address] [place] [address], [place] [phone] documented in this encounter Visit Diagnoses Not on filedocumented in this encounter Care Teams Agronomy Professor Relationship Specialty Start Date End Date Unknown, Unknown [place], [place] PCP - General 10/10/21 documented as of this encounter
--- OUTSIDE RECORDS SUMMARY | 2025-08-20 15:43 | XMS_ITS | Encounter Summary ---
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 - [employer] Social History Tobacco Use Types Packs/Day Years Used Date Smoking Tobacco: Former Cigarettes Q uit: 1981 Smokeless Tobacco: Never Alcohol Use Standard Drinks/Week Comments No 0 (1 standard drink = 0.6 oz [...] Description 01/08/2026 10:20 AM EDT Office Visit [facility] UROLOGY [address] [facility] [address] [address] Sanjay Freed, MOTORCOACH DRIVER 7[address] [facility] [address] [address] 01/21/2026 9:45 AM EDT Office Visit [facility] CARDIOLOGY [address] [address] Chun Connolly MD 789 [facility] [address] [address] 07/31/2026 10:30 AM EDT Office Visit [facility] [address] [facility] [address] [place] [address] Regan Lopez MD [address] [place] [address] documented as of this encounter Visit Diagnoses Not on filedocumented in this encounter Additional Health Concerns Infection Onset Date Last Indicated Resolved Time COVID (rule out) 06/12/2020 06/23/2020 06/19/2020 9:08 PM EDT COVID Screen (preop/placement) 03/11/2022 03/13/2022 12/01/2023 12:11 PM EST documented as of this encounter Care Teams Side Splitter Relationship Specialty Start Date End Date Regan Obrien MD [address] [facility] [address] [place] [address] PCP - General Internal Medicine 02/14/25 documented as of this encounter
--- OUTSIDE RECORDS SUMMARY | 2025-08-20 15:43 | XMS_ITS | Referral Summary ---
Author Organization [employer] ([place], [place], [place], [place], [place]) Address [address] [place] [address] Care Team Providers Care Medication Specialist Name Role Phone Regan Obrien MD Primary Care Provider [phone] Social History Tobacco Use Types Packs/Day Years [...] Date Landon rded Speak language other than Tuvaluan at home Not on file 10/28/2023 Want [...] Orientation Not on file Plan of Treatment Not on file Insurance MEDICARE PART A B SUPPL Care Teams Medication Specialist Relationship Specialty Start Date End Date Regan Obrien MD [address] [place] [id number] PCP - General General Internal Medicine 01/04/23
--- OUTSIDE RECORDS SUMMARY | 2025-08-20 15:43 | XMS_ITS | Encounter Summary ---
Author Organization [facility] Address [address] [place] [address] Care Team Providers Care Forepart Rounder Name Role Phone Regan Obrien MD Primary Care Provider [phone] Encounter Details Date Type Department Care Team (Late st Contact Info) Description 05/27/2025 Results Follow-Up [facility] CARDIOLOGY [address] [facility] [address] [place] [address] Soni Spears APRN 1720 [address] [facility] [address] [place] [address] Social History Tobacco Use Types Packs/Day Years [...] Description 01/08/2026 10:20 AM EDT Office Visit [facility] 793 [facility] [address] [address] Sanjay Freed, RESEARCH EDITOR 793 [facility] [address] [address] 01/21/2026 9:45 AM EDT Office Visit [facility] CARDIOLOGY [address] [address] Chun Connolly MD 789 [facility] [address] [address] 07/31/2026 10:30 AM EDT Office Visit [facility] CARDIOLOGY [address] [phone] Regan Lopez MD [address] [address] documented as of this encounter Visit Diagnoses Not on filedocumented in this encounter Care Teams Forepart Rounder Relationship Specialty Start Date End Date Regan Obrien MD [address] [facility] [address] [address] [place], [place] [id number] PCP - General Internal Medicine 02/14/25 documented as of this encounter
--- OUTSIDE RECORDS SUMMARY | 2025-08-20 15:43 | XMS_ITS | Encounter Summary ---
[facility] Organization [facility] Address [address] [place] [address] Care Team Providers Care Desk Top Publisher Name Role Phone Regan Obrien MD Primary Care Provider [phone] [phone] Encounter Details Date Type Department Care Team (Late st Contact Info) Description 12/31/2024 Results Follow-Up [facility] [address] [place] [address] Maria Teresa Ca, ONLINE JOURNALIST 789 [facility] 1, [address] [place] [id number] Social History Tobacco Use Types Packs/Day Years Used Date Smoking Tobacco: Former Cigarettes 1 4 Q uit: 10/10/1980 Passive Smoke Exposure: Past Smokeless Tobacco: Never Alcohol Use Standard Drinks/Week Comments Yes 1 (1 standard drink = 0.6 oz pur e alcohol) will go weeks without a drink Abuse Screen Answer Date Recorded Feels Unsafe at Home or Work/School no 2024 Feels Threatened by Someone no 11/10 Does Anyone Try to Keep You From Having Contact with Others or Doing Things Outside Your Home? no 2024 Physical Signs of Abuse Present no 2024 Sex and Gender Information Value Date Recorded Sex Assigned at Not on file Legal Sex Male 11:02 AM EDT Gender Identity Not on file Sexual Orientation Not on file documented as of this encounter Progress Notes * Janie Iyer MA - 12/31/2024 1:42 PM EDT Pt notified of results via [employer] documented in this encounter Plan of Treatment Upcoming Encounters Date Type Department Care Team (Late st Contact Info) Description 01/08/2026 10:20 AM EDT Office Visit [facility] 793 [facility] 3 [facility] 101 [place] [phone] Sanjay Freed, ONLINE JOURNALIST 793 [facility] [address] [address] 01/21/2026 9:45 AM EDT Office Visit [facility] 789 [facility] 12 [place] [address] Chun Connolly MD 789 [facility] 1 [facility] 12 [place] [address] 07/31/2026 10:30 AM EDT Office Visit [facility] [address] [address] Regan Lopez MD [address] [address] documented as of this encounter Visit Diagnoses Not on filedocumented in this encounter Care Teams Desk Top Publisher Relationship Specialty Start Date End Date Regan Obrien MD [address] [place] [address] PCP - General Internal Medicine 02/14/25 documented as of this encounter
--- OUTSIDE RECORDS SUMMARY | 2025-08-20 15:43 | XMS_ITS | Clinical Summary ---
Author Organization [facility] Address [address] [place] [address] Care Team Providers Care Multi Mission Helicopter Aircrewman Name Role Phone Regan Obrien MD Primary Care Provider [phone] [phone] Allergies No known active allergies Medications allopurinol (ZYLOPRIM) 300 MG tablet Take 1 tablet by mouth Daily. Active Multiple Vitamins-Mineral s (MULTIVITAL RINCON SILVER PO) Take 1 tablet by mouth Daily. Active busPIRone (BUSPAR) 10 MG tablet Take 0.5 tablets by mouth Daily. 0 9 Active FIBER PO Take by mouth Daily. Active Psyllium (METAMUCIL FIBER PO) Take by mouth. Active rosuvastatin (CRESTOR) 5 MG tablet Take 1 tablet by mouth Daily. Active Polyethylene Glycol 3350 (MIRALAX PO) Take by mouth Daily. Active amLODIPine-benaz epril (LOTREL 2.5-10) 2.5-10 MG per capsuleIndicatio ns:Essential hypertension,Cor onary artery disease involving chilkat coronary artery of chilkat heart without angina pectoris,Abnorma l ECG,Precordial pain,Hyperlipide donny LDL goal <100 TAKE ONE CAPSULE BY MOUTH EVERY DAY 90 capsule 3 3 Active sildenafil (REVATIO) 20 MG tabletIndication s:Erectile dysfunction, unspecified erectile dysfunction type Take 1 tablet by mouth See Admin Instructions . 1-2 daily as needed. Do not exceed 5 pills per day. 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 Left ventricular systolic function is normal. Estimated EF = 64%. 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 Connolly in 4 weeks. Assessment & Plan (2024 11:38 AM EST): -EKG confirmed SVT today -Wheeled to the ER by myself for further care with report given to nursing staff -Will plan to place monitor to assess for recurrence as patient is minimally symptomatic denying palpitations -Will plan to offer EP referral for possible ablation with recurrence Arthritis 11/11/2021 Hyperlipidemia LDL goal <100 12/01/2020 Essential hypertension 08/27/2016 Assessment & Plan (12/12/2024 12:30 PM EST): -Blood pressure controlled -Continue current medications Resolved Problems Problem Noted Date Diagnosed Date Resolved Date Right leg pain 09/13/2017 07/25/2022 Dizziness 08/27/2016 07/25/2022 Encounters Date Type Department Care Team Description 07/25/2025 10:30 AM EDT Office Visit [facility] CARDIOLOGY [address] [place] [address] [address] [place] [address] Regan Lopez MD PSVT (paroxysmal supraventricular tachycardia) (Primary Dx); Essential hypertension 07/24/2025 10:00 AM EDT Office Visit [facility] GENERAL SURGERY [address] [place] [address] Carlota Parker MD Right groin pain (Primary Dx); Idiopathic chronic pancreatitis; Diverticulosis 07/24/2025 Travel 07/09/2025 7:02 AM EDT - 07/09/2025 11:59 PM EDT Hospital Encounter [facility] [address] [place] [address] Regan Obrien MD Unspecified renal colic Discharge Disposition: Home or Self Care 07/09/2025 Travel 05/27/2025 Results Follow-Up [facility] [address] [place] [phone] Soni Spears APRN from Last 3 Months Immunizations Immunization Administration Dates Next Due COVID-19 (TrackaPhone) Purple Cap Monovalent 09/10/2021,01/22/2021,01/01/2021 Fluzone >6mos 07/22/2017 Fluzone High-Dose 65+yrs 07/12/2022,06/10/2021 Influenza, Unspecified 08/14/2018 Pneumococcal Conjugate 13-Va lent (PCV13) 03/10/2023(Deferred: Patient decision) Family History Medical History Relation Name Comments No Known Problems Brother Aortic aneurysm Father Ti Arrhythmia Father Ti afib Stroke Father Ti Arthritis Mother No Known Problems Sister Relation Name Status Comments Brother Alive Father Ti (Age 89) Mother Sister Alive Social History Tobacco Use Types Packs/Day Years [...] on file Sexual Orientation Not on file Last Filed Vital Signs Vital Sign Reading Time Taken Comments Blood Pressure 118/62 07/25/2025 10:26 AM EDT Pulse 56 07/25/2025 10:26 AM EDT Temperature 36.5 C (97.7 F) 07/24/2025 9:56 AM EDT Respiratory Rate 16 04/29/2025 10:30 PM EDT Oxygen Saturation 94% 07/25/2025 10:26 AM EDT Inhaled Oxygen Concentration - - Weight 117 kg (258 lb 3.2 oz) 07/25/2025 10:26 A M EDT Height 190.5 cm (6' 3 ) 07/25/2025 10:26 AM EDT Body Mass Index 32.27 07/25/2025 10:26 AM EDT Plan of Treatment Upcoming Encounters Date Type Department Care Team (Late st Contact Info) Description 01/08/2026 10:20 AM EDT Office Visit [facility] UROLOGY 793 [facility] MOB [address] [address] Sanjay Freed, SALES OPERATIONS COORDINATOR 793 [facility] MOB [address] [address] 01/21/2026 9:45 AM EDT Office Visit [facility] CARDI[facility] 789 [facility] 12 [place] [address] Chun Connolly MD 789 [facility] 1 [address] [place] [address] 07/31/2026 10:30 AM EDT Office Visit [facility] [address] [facility] [address] [place] [address] Regan Lopez MD [address] [place] [address] Health Maintenance Due Date Last Done Comments TDAP/TD VACCINES (1 - Tdap) 1971 COLOGUARD 1997 COLON CANCER SCREENING 5 YEA R SIGMOIDOSCOPY 1997 [address] COLONOGRAPHY 1997 FECAL OCCULT BLOOD TEST 1997 FIT Testing (1 year) 1997 Pneumococcal Vaccine 50+ (1 of 1 - PCV) 2002 07/24/2015 ZOSTER VACCINE (2 of 3) 09/04/2015 07/10/2015 HEPATITIS C SCREENING 02/01/2017 LIPID PANEL 03/27/2021 03/27/2020, 08/10, 08/14/2018 ANNUAL WELLNESS VISIT 05/16/2024 05/16/2023 , 06/07/2022, 02/02/2021, Additional history exists INFLUENZA VACCINE 05/10/2025 09/05/2024, , 09/16/2023, Additional history exists COVID-19 Vaccine (2024-2 6 season) 2025 09/10/2021, 01/22/2021, 01/01/2021 COLONOSCOPY 06/26/2030 06/26/2020, 06/10, 09/21/2018 COLORECTAL CANCER SCREENING 06/26/2030 HEMOGLOBIN A1C Discontinued 10/14/2022, 05/11, 03/29/2019 AAA SCREEN ONCE Completed 07/09/2025, 02/07, 07/12/2021, Additional history exists Procedures Procedure Name Priority Date/Time Associated Diagnosis Comments SCANNED EKG 07/25/2025 US SOFT TISSUE Routine 07/24/2025 10:35 AM EDT Right groin pain CT ABDOMEN PELVIS WO CONTRAST Routine 07/09/2025 7:16 AM EDT Unspecified renal colic HEMOGLOBIN A1C STAT 03/29/2019 2:18 PM EDT Personal history of problems Other abnormal glucose Preop examination from Last 3 Months or Most Recently Relevant to Health Maintenance Results * ECG Scan (07/25/2025) us Regan Lopez MD ECG ORDERABLES Final Result * US soft tissue (07/24/2025 10:35 AM [...] Parker MD IMG US ORDERABLES Final Result * CT Abdomen Pelvis Without Contrast (07/09/2025 [...] CT ABDOMEN PELVIS WO CONTRAST- HISTORY: N23; Y96-Jroajqoowjf renal colic COMPARISON: July 2021. PROCEDURE: Axial [...] CT ABDOMEN PELVIS WO CONTRAST- HISTORY: N23; Z15-Gknhyaacutd renal colic COMPARISON: July 2021. PROCEDURE: Axial [...] MD IMG CT ORDERABLES Final R esult * Hemoglobin A1c (03/29/2019 2:18 PM EDT) Hemoglobin A1C 5.30 4.80 - 5.60 % 03/29/2019 8:08 PM EDT [facility] Blood Venipuncture / Unknown 03/29/2019 2:18 PM EDT 03/29/2019 2:19 PM EDT Narrative [facility] - 03/29/2019 8:08 PM EDT Hemoglobin A1C Ranges: Increased Risk for Diabetes 5.7% to 6.4% Diabetes >= 6.5% Diabetic Goal < 7.0% Wilian Brantley MD LAB BLOOD ORDERABLES Caridad bosch Result [facility]
[address] [place] [address], [place] [phone] from Last 3 Months or Most Recently Relevant to Health Maintenance Insurance MEDICARE A & B Member Subscriber Plan / Payer (Ef fective 2017-Present) Name:Ti Reyna Member ID:[id number] Relation to Subscriber:Self Name:Ti Reyna Subscriber ID:[id number] Payer ID:[id number] Group ID:Not on file Type:Not on file Address: [id number] Care Teams Multi Mission Helicopter Aircrewman Relationship Specialty Start Date End Date Regan Obrien MD [address] [place] [address] PCP - General Internal Medicine 02/14/25
--- OUTSIDE RECORDS SUMMARY | 2025-08-20 15:43 | XMS_ITS | Encounter Summary ---
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 - [employer] Social History Tobacco Use [...] Description 01/08/2026 10:20 AM EDT Office Visit [facility] UR[facility] 793 [facility] M[facility] [address] [address] Sanjay Freed, CIGAR PACKER AND SHADER 793 [facility] MOB [address] [address] 01/21/2026 9:45 AM EDT Office Visit [facility] CARDIOLOGY [address] [address] Chun Connolly MD 789 [facility] [address] [address] 07/31/2026 10:30 AM EDT Office Visit [facility] 1720 [facility] [address] [place] [phone] Regan Lopez MD [address] [place] [address] documented as of this encounter Visit Diagnoses Not on filedocumented in this encounter Additional Health Concerns Infection Onset Date Last Indicated Resolved Time COVID (rule out) 06/12/2020 06/23/2020 06/19/2020 9:08 PM EDT COVID Screen (preop/placement) 03/11/2022 03/13/2022 12/01/2023 12:11 PM EST documented as of this encounter Care Teams Wound Care Technician Relationship Specialty Start Date End Date Regan Obrien MD 2012 [facility] [address] [place] [address] PCP - General Internal Medicine 02/14/25 documented as of this encounter
--- OUTSIDE RECORDS SUMMARY | 2025-08-20 15:43 | XMS_ITS | Encounter Summary ---
Author Organization Healthcare Address [address] [place] [address] Care Team Providers Care Crew Leader Gluing Name Role Phone Unknown, Unknown Primary Care Provider Unavailab le Encounter Details Date Type Department Care Team (Late st Contact Info) Description 05/26/2023 Orders Only [facility] Medical Oncology [address] [place] [address] Trish Johnson MD [address] [address] Social History Tobacco Use Types [...] Comments BETA 2 MICROGLOBULIN, SERUM (SO) Routine 05/26/2023 2:09 PM EDT documented in this encounter Results * Beta 2 microglobulin,serum (05/26/2023 2:09 PM EDT) External Dhlr-5-Fdusxypw bulin 1.66 < OR = 2.51 mg/L 05/27/2023 3:47 PM EDT [facility] 05/26/2023 2:09 PM EDT 05/26/2023 7:21 PM EDT us Trish Johnson MD LAB BLOOD ORDERABLES Final Re sult [facility] [address] [place] [address], documented in this encounter Visit Diagnoses Not on filedocumented in this encounter Care Teams Crew Leader Gluing Relationship Specialty Start Date End Date Unknown, Unknown STEPHANIE Kirkland PCP - General 10/10/21 documented as of this encounter
--- OUTSIDE RECORDS SUMMARY | 2025-08-20 15:43 | XMS_ITS | Encounter Summary ---
Author Organization Healthcare Address [address] [place] [address] Care Team Providers Care Handy Worker Name Role Phone Unknown, Unknown Primary Care Provider Unavailab le Encounter Details Date Type Department Care Team (Late st Contact Info) Description 05/26/2023 Orders Only [facility] Medical Oncology [address] [place] [address] Trish Johnson MD [address] [address] Social History Tobacco Use Types [...] Diagnosis Comments CBC WITH AUTO DIFFERENTIAL Routine 05/26/2023 2:09 PM EDT documented in this encounter Results * (ABNORMAL) CBC and Differential (05/26/2023 2:09 PM EDT) External WBC 4.4 3.8 - 10.8 10*3/uL 05/26/2023 7:49 PM EDT [facility] External Red Blood Cell (RBC) 4.42 4.20 - 5.80 10*6/uL 05/26/2023 7:49 PM EDT [facility] External Hemoglobin 13.8(L) 14.0 - 18.0 g/dL 05/26/2023 7:49 PM EDT [facility] External Hematocrit 40.6 40.0 - 52.0 % 05/26/2023 7:49 PM EDT [facility] External MCV 92 80 - 100 fL 05/26/2023 7:49 PM EDT [facility] External MCH 31 26 - 35 pg 05/26/2023 7:49 PM EDT [facility] External MCHC 34 32 - 36 g/dL 05/26/2023 7:49 PM EDT [facility] External RDW 13.6 11.0 - 15.0 % 05/26/2023 7:49 PM EDT [facility] External Mean Platelet Volume 9.4 6.2 - 10.5 fL 05/26/2023 7:49 PM EDT [facility] External Platelets 177 130 - 400 10*3/uL 05/26/2023 7:49 PM EDT [facility] External Neutrophil# 2.5 1.6 - 8.4 10*3/uL 05/26/2023 7:49 PM EDT [facility] External Lymphocyte# 1.5 0.4 - 5.1 10*3/uL 05/26/2023 7:49 PM EDT [facility] External Absolute Monocyte (Abs Hardin) 0.3 0.0 - 1.2 10*3/uL 05/26/2023 7:49 PM EDT [facility] External Eosinophils# 0.1 0.0 - 0.8 10*3/uL 05/26/2023 7:49 PM EDT [facility] External Baso# 0.1 0.0 - 0.3 10*3/uL 05/26/2023 7:49 PM EDT [facility] External Neutrophils % 56.8 42.0 - 78.0 % 05/26/2023 7:49 PM EDT [facility] External Lymphocyte % 33.3 11.0 - 47.0 % 05/26/2023 7:49 PM EDT [facility] External Monocyte % 7.0 0.0 - 11.0 % 05/26/2023 7:49 PM EDT [facility] External Eosinophil% 1.5 0.0 - 7.0 % 05/26/2023 7:49 PM EDT [facility] External Basophil % 1.4 0.0 - 3.0 % 05/26/2023 7:49 PM EDT [facility] External Nucleated RBC%-Auto 0.1 0.0 - 0.9 % 05/26/2023 7:49 PM EDT [facility] External Nucleated RBC Absolute 0.00 Not Estab. 10*3/uL 05/26/2023 7:49 PM EDT [facility] 05/26/2023 2:09 PM EDT 05/26/2023 7:38 PM EDT us Trish Johnson MD LAB BLOOD ORDERABLES Final Re sult [facility] [address] [place] [address], documented in this encounter Visit Diagnoses Not on filedocumented in this encounter Care Teams Handy Worker Relationship Specialty Start Date End Date Unknown, Unknown [place], [place] PCP - General 10/10/21 documented as of this encounter
--- OUTSIDE RECORDS SUMMARY | 2025-08-20 15:43 | XMS_ITS | Encounter Summary ---
Author Organization Healthcare Address [address] [place] [address] Care Team Providers Care Vice President & General Manager [employer] Name Role Phone Unknown, Unknown Primary Care Provider Unavailab le Encounter Details Date Type Department Care Team (Late st Contact Info) Description 11/26/2022 Orders Only [facility] Medical Oncology [address] [place] [address] Trish Johnson MD [address] [address] Social History Tobacco Use Types [...] Date/Time Associated Diagnosis Comments QUANTITATIVE IMMUNOGLOBULINS Routine 11/26/2022 1:45 PM EST documented in this encounter Results * Quantitative Immunoglobulins (11/26/2022 1:45 PM EST) External IgG, Serum 1,352 700 - 1,600 mg/dL [facility] External IgA Quant 83 70 - 400 mg/dL [facility] External IgM Quant 90 40 - 230 mg/dL [facility] 11/26/2022 1:45 PM EST 11/26/2022 7:11 PM EST us Trish Johnson MD LAB BLOOD ORDERABLES Final Re sult [facility] [address] [place] [address], documented in this encounter Visit Diagnoses Not on filedocumented in this encounter Care Teams Vice President & General Manager [employer] Relationship Specialty Start Date End Date Unknown, Unknown [place] PCP - General 10/10/21 documented as of this encounter
--- OUTSIDE RECORDS SUMMARY | 2025-08-20 15:43 | XMS_ITS | Encounter Summary ---
Author Organization Healthcare Address [address] [place] [address] Care Team Providers Care Computer Applications Instructor Name Role Phone Unknown, Unknown Primary Care Provider Unavailab le Encounter Details Date Type Department Care Team (Late st Contact Info) Description 05/26/2023 Orders Only [facility] Medical Oncology [address] [place] [address] Trish Johnson MD [address] [address] Social History Tobacco Use Types [...] Associated Diagnosis Comments PROTEIN ELECTROPHORESIS, SERUM Routine 05/26/2023 2:09 PM EDT documented in this encounter Results * (ABNORMAL) Protein electrophoresis, serum (05/26/2023 2:09 PM EDT) External Total Protein 7.2 6.1 - 8.1 g/dL 05/27/2023 1:26 PM EDT [facility] External Albumin 4.4 3.8 - 4.8 g/dL 05/28/2023 8:56 PM EDT [facility] External Dtans-9-Qpngjfraw 0.3 0.2 - 0.3 g/dL 05/28/2023 8:56 PM EDT [facility] External Sshcz-2-Wasydatlg 0.7 0.5 - 0.9 g/dL 05/28/2023 8:56 PM EDT [facility] External Xwlg-1-Lfxglmtr 0.4 0.4 - 0.6 g/dL 05/28/2023 8:56 PM EDT [facility] External Ocng-2-Ertiircu 0.3 0.2 - 0.5 g/dL 05/28/2023 8:56 PM EDT [facility] External Gamma Globulin 1.2 0.8 - 1.7 g/dL 05/28/2023 8:56 PM EDT [facility] External Abnormal Protein Band 1 0.9(H) NONE DETECTED g/dL 05/28/2023 8:56 PM EDT [facility] External Immunofixation Interpretation SEE BELOW 05/28/2023 8:56 PM EDT [facility] Comment: An abnormal protein band is detected in the gamma globulins and may represent a monoclonal immunoglobulin or light chain. 05/26/2023 2:09 PM EDT 05/26/2023 7:22 PM EDT us Trish Johnson MD LAB BLOOD ORDERABLES Final Re sult [facility] [address] [place] [address], [place] [phone] documented in this encounter Visit Diagnoses Not on filedocumented in this encounter Care Teams Computer Applications Instructor Relationship Specialty Start Date End Date Unknown, Unknown [place], [place] PCP - General 10/10/21 documented as of this encounter
--- OUTSIDE RECORDS SUMMARY | 2025-08-20 15:43 | XMS_ITS | Encounter Summary ---
Author Organization [facility] Address [address] [place] [address] Care Team Providers Care Small Order Cutter Name Role Phone Regan Obrien MD Primary Care Provider [phone] Encounter Details Date Type Department Care Team (Latest Contact Info) Description 07/09/2025 Travel Social History Tobacco Use Types Packs/Day Years [...] Description 01/08/2026 10:20 AM EDT Office Visit [facility] 793 [facility] [address] [address] Sanjay Freed, SET UP WORKER 793 [facility] [address] [address] 01/21/2026 9:45 AM EDT Office Visit [facility] C[facility] [address] [address] Chun Connolly MD 9 [facility] [place] [address] [address] 07/31/2026 10:30 AM EDT Office Visit [facility] [address] [address] Regan Lopez MD [address] [place] [id number] documented as of this encounter Visit Diagnoses Not on filedocumented in this encounter Care Teams Small Order Cutter Relationship Specialty Start Date End Date Regan Obrien MD [address] [place] [address] PCP - General Internal Medicine 02/14/25 documented as of this encounter
--- OUTSIDE RECORDS SUMMARY | 2025-08-20 15:43 | XMS_ITS | Clinical Summary ---
Author Organization [facility] , [facility] Address [address] [place] [address] Phone Care Team Providers Care Tabber Name Role Phone Earl SULTANA, Dean Talamantes Unavailable [phone] BERTHA SULTANA, JANETT Horan Primary Care Provider [phone] Reason for Visit and Chief Complaint The Chief Complaint is: L knee pain Problems Includes: Problems addressed during this encounter and other active Problems All Visits Onset Date Resolved Date Provider Condition S tatus Joint Pain Left Knee 10/04/2023 Kris Fofana PA-C Active Last Documented On 3 1:08PM ; [facility], [facility] Joint Pain Right Knee 09/23/2022 Dean Elliott MD Active Last Documented On 2 4:23PM ; [facility], [facility] Plan of Treatment Pending Tests Order Diagnosis Results Due Ordering P [facility] Radiology - MRI MRI Knee Pain in left knee 10/26/23 Rylan Fofana PA-C Last Documented On 4 12:00PM ; [facility], [facility] Instructions to patient Lose weight Last Documented On 4 9:26AM ; [facility], [facility] Assessments Includes: Assessments from this encounter Findings - Overweight - Last Documented On 10/28/2023 12:00PM ; [facility], [facility] Osteoarthritis of the left knee - Last Documented On 10/28/2023 12:00PM ; [facility], [facility] Medial meniscus tear - Last Documented On 10/28/2023 12:00PM ; [facility], [facility] Patient had no relief from cortisone injection up until this morning. Feels like pain has slightly decreased. I do find it reasonable to go ahead and obtain an MRI of the left knee to evaluate for medial meniscus tear causing his symptoms. Continue taking meloxicam in the meantime. He has an upcoming trip to [place] scheduled for the end of this week and will be gone for 1 week. We will send him a Medrol Dosepak to take for breakthrough pain when he is gone. He will follow up after his MRI for recheck. He is to call with any concerns in meantime. - Last Documented On 10/28/2023 12:00PM ; [facility], [facility] Instructions Includes: Instructions from this encounter Instructions to patient Lose weight Last Documented On 4 9:26AM ; [facility], [facility] Medical Equipment - Implanted Devices Includes: Current Devices No Medical Equipment Recorded Medications Includes: Medications discussed during this encounter and other current Medications Current Medications (continue as prescribed) amLODIPine Besy-Benazepril H Cl 2.5-10 MG Oral Capsule 09/09/2022 Provider: EDUIN GILLETTE MD Diagnosis: Last Documented On 2 4:24PM By Roland Baldwin ; [facility], [facility] Rosuvastatin Calcium 10 MG Oral Tablet 08/26/2022 Pr ovider: JANETT STONE MD Diagnosis: Last Documented On 2 4:24PM By Roland Baldwin ; [facility], [facility] Allopurinol 300 MG Oral Tablet 07/20/2022 Provider: Sheridan Coffey APRN Diagnosis: Last Documented On 2 4:24PM By Roland Baldwin ; [facility], [facility] Past Medications on file Meloxicam 15 MG Oral Tablet 10/04/2023 - 12/03/2023 Pr ovider: Kris Fofana PA-C Diagnosis: once a day Last Documented On 3 2:03PM By Netta Paulino ; [facility], [facility] Meloxicam 7.5 MG Oral Tablet 12/28/2022 - 03/28/2023 Provider: Dean Gibson MD Diagnosis: Take 1 tablet by mouth daily Last Documented On 3 3:05PM By Niranjan Bobo ; [facility], [facility] Vitamin D3 50 MCG (1999 [place]) Oral Tablet 11/04/2022 - 01/03/2023 Provider: Dean Gibson MD Diagnosis: Take 1 tablet by mouth daily Last Documented On 3 3:36PM By Dean Elliott ; [facility], [facility] Aspirin EC 81 MG Oral Tablet Delayed Release 11/04/2022 - 12/16/2022 Provider: Dean Elliott MD Diagnosis: Take 1 tablet by mouth every 12 hours for 42 days post op Last Documented On 3 3:35PM By Dean Elliott ; [facility], [facility] Cefadroxil 500 MG Oral Capsule 11/04/2022 - 11/07/2022 Provider: Dean Gibson MD Diagnosis: Take 1 tablet by mouth every 12 hours for 3 days Last Documented On 3 3:35PM By Dean Elliott ; [facility] Acetaminophen 500 MG Oral Tablet 11/04/2022 - 11/18/2022 Provider: Dean Gibson MD Diagnosis: Take 2 tablets by mouth every 8 hours Last Documented On 3 3:35PM By Dean Elliott ; [facility], [facility] Meloxicam 15 MG Oral Tablet 11/04/2022 - 11/18/2022 Pr ovider: Dean Elliott MD Diagnosis: once a day Last Documented On 3 3:35PM By Dean Elliott ; [facility], [facility] traMADol HCl 50 MG Oral Tablet 11/04/2022 - 11/12/2022 Provider: Dean Gibson MD Diagnosis: 2 tablets every 6 hours for break through pain Last Documented On 3 3:35PM By Dean Elliott ; [facility], [facility] oxyCODONE HCl 5 MG Oral Tablet 11/04/2022 - 11/14/2022 Provider: Dean Gibson MD Diagnosis: Take 1 tablet by mouth every 4-6hrs for moderate pain Last Documented On 3 3:35PM By Dean Elliott ; [facility], [facility] Colace 100 MG Oral Capsule 11/04/2022 - 02/02/2023 Pro vider: Dean Elliott MD Diagnosis: Take 1-2 capsules daily as needed Last Documented On 3 3:35PM By Dean Elliott ; [facility], [facility] Ondansetron HCl 4 MG Oral Tablet 11/04/2022 - 11/11/2022 Provider: Dean Gibson MD Diagnosis: 1 po q 6h prn nausea Last Documented On 3 3:35PM By Dean Elliott ; [facility], [facility] Medications Administered Includes: Administered Medications from this encounter No Administered Medications Recorded Vital Signs Includes: Vital Signs from this encounter Vital Name 10/12/2023 09:29A Height (in) 75 Weight (lb) 245 Body Mass Index 30.6 Body Surface Area 2.4 Note: mgg Last Documented: On 10/12/2023 9:29AM ; [facility] Results Includes: Results discussed during this encounter No Results Recorded For Specified Dates History of Present Illness Includes: History of Present Illness from this encounter RUSTY [place] is a 72 year old male. - Allergy list reviewed - Problem list reviewed - Medication list reviewed Patient presents today for re-evaluation of pain in the left knee. States that after aspiration/injection that he felt minimal relief for the 1st 7 days. This morning he woke up and states that his pain has somewhat improved. He has been compliant with taking meloxicam. He is still having some lingering pain over the medial joint line today. Pain is worse with weight-bearing. He is here today to discuss further treatment options. Social History Description Last Updated Alcohol use 03/01/2023 Last Documented On 4 9:26AM ; [facility], [facility] Exercising regularly 03/01/2023 Last Documented On 4 9:26AM ; [facility], [facility] No caffeine use 12/28/2022 Last Documented On 4 9:26AM ; [facility], [facility] No recent change in diet 12/28/2022 Last Documented On 4 9:26AM ; [facility], [facility] Not a current smoker. 12/28/2022 Last Documented On 4 9:26AM ; [facility], [facility] Not using drugs 12/28/2022 Last Documented On 4 9:26AM ; [facility] Tobacco non-user 09/24/2022 Last Documented On 4 9:26AM ; [facility] Smoking Status Unknown Procedures and Surgical History Includes: Procedures from this encounter Procedures Code Diagnosis Performing Provider Service L ocation Service Date use of tobacco assessment performed 1000F Last Documented On 4 9:26AM ; [facility] patient screened for future fall risk: documentation of any fall with injury in past year 1100F Last Documented On 4 9:26AM ; [facility] review of medications documented 1160F Last Documented On 4 9:26AM ; [facility] an X-ray was performed 07034 Last Documented On 4 9:26AM ; [facility] Surgical History Last Updated History of hernia repair 12/29/2022 Last Documented On 4 9:26AM ; [facility] Medical History Includes: Medical History addressed during this encounter Description Last Updated Past surgical history non-contributory 0 12/29/2022 Last Documented On 4 9:26AM ; [facility] History of History of Gallbladder 2022 Last Documented On 4 9:26AM ; [facility] Family History Includes: Family History addressed during this encounter Description Last Updated No significant family history 12/28/2022 Last Documented On 4 9:26AM ; [facility] Review of Systems Includes: Review of Systems [...] Encounters Encounter Provider Location Date Check-In Time Check-Out Time Diagnosis Follow Up Kris Fofana PA-C [facility] 4 9:20AM 10:03AM Overweight Insurance Includes: Active Insurance Policies Plan Name Member ID Group # Subscriber Relationship Effect yani Dates 1 - Medicare Part B [facility] [id number] Ti [place]a Self 11/10/2017 - Unknown 2 - BCBS [facility] [id number] Ti [place]a Self 09/20/2017 - Unknown Clinical Notes Includes: Clinical Notes from this encounter * Progress note Date Encounter Last Documented by 10/12/2023 Follow Up Last documented on 10/28/2023; 12:00 PM, Kris Cruz; [facility], [facility] Active Problems & Conditions - Joint Pain in the Left Knee - Joint Pain in the Right Knee Chief Complaint The Chief Complaint is: L knee pain. Referred Here Referred by Dr. Ray. History of Present Illness Ti [place]a is a 72 year old male. - Allergy list reviewed - Problem list reviewed - Medication list reviewed Patient presents today for re-evaluation of pain in the left knee. States that after aspiration/injection that he felt minimal relief for the 1st 7 days. This morning he woke up and states that his pain has somewhat improved. He has been compliant with taking meloxicam. He is still having some lingering pain over the medial joint line today. Pain is worse with weight-bearing. He is here today to discuss further treatment options. Current Medication - Allopurinol 300 MG Oral [...] allergic reaction. Physical Findings - Vitals taken 10/12/2023 09:29 am mgg Height 75 in Weight 245 lbs Body Mass Index 30.6 kg/m2 Body Surface Area 2.4 m2 Left lower extremity Patient walks with an antalgic gait Overall there is a varus alignment but correctable to the knee range of motion from 0-120- Minimal effusion present Ligamentously stable to ACL PCL MCL and LCL Patella tracks well without subluxation or grinding has good patella mobility Negative Forest medially and negative laterally Medial joint line tenderness Negative Stinchfield with full rotation of the hip Negative straight leg raise Patient has 5 out of 5 motor strength in tib ant and gastroc sensory is intact to SPN TPN and tibial nerves there is a 2+ dorsalis pedis pulse Tests Reviewed valgus stress test with the patient today. X-rays do show minimal medial joint line opening with valgus stress test. Assessment - Overweight Previous Tests Imaging: X-Ray: An X-ray was performed. Counseling/Education - Lose weight Plan StartCited - Pain in left knee Radiology/MRI: MRI Knee Instructions: w/o contrast EndCited User Defined 5 Fall Risk Assessment: This [...] therapy has been discussed with the patient. Osteoarthritis of the left knee Medial meniscus tear Patient had no relief from cortisone injection up until this morning. Feels like pain has slightly decreased. I do find it reasonable to go ahead and obtain an MRI of the left knee to evaluate for medial meniscus tear causing his symptoms. Continue taking meloxicam in the meantime. He has an upcoming trip to [place] scheduled for the end of this week and will be gone for 1 week. We will send him a Medrol Dosepak to take for breakthrough pain when he is gone. He will follow up after his MRI for recheck. He is to call with any concerns in meantime. Notes This dictation was done with voice recognition software and may contain errors and omissions. Practice Management Use of tobacco assessment performed and patient screened for future fall risk documentation of any fall with injury in past year Review of medications documented. Care Team - JANETT STONE MD - [employer] Health Reminders - Assess BMI satisfied 10/12/2023. - Assess Tobacco Use satisfied 10/12/2023. - Follow Up Plan BMI Management satisfied 10/12/2023.
--- OUTSIDE RECORDS SUMMARY | 2025-08-20 15:43 | XMS_ITS | Encounter Summary ---
Author Organization Healthcare Address [address] [place] [address] Care Team Providers Care Dock Operator Name Role Phone Unknown, Unknown Primary Care Provider Unavailab le Encounter Details Date Type Department Care Team (Late st Contact Info) Description 11/11/2021 Orders Only [facility] [address] [place] [address] Trish Johnson MD [address] [address] Social History Tobacco Use Types [...] Date/Time Associated Diagnosis Comments IMMUNOFIXATION ELECTROPHORESIS Routine 11/11/2021 10:19 AM EST documented in this encounter Results * Immunofixation Electrophoresis (11/11/2021 10:19 AM EST) External Immunofixation Interpretation SEE BELOW [facility] Comment: An IgG (kappa) 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 TEST PERFORMED AT: [facility] [address] [address] MACK SOLIMAN MD 11/11/2021 10:1 9 AM EST 11/11/2021 2:43 PM EST us Trish Johnson MD LAB BLOOD ORDERABLES Final Re sult [facility] [address] [place] [address], documented in this encounter Visit Diagnoses Not on filedocumented in this encounter Care Teams Dock Operator Relationship Specialty Start Date End Date Unknown, Unknown [place], [place] PCP - General 10/10/21 documented as of this encounter
--- OUTSIDE RECORDS SUMMARY | 2025-08-20 15:43 | XMS_ITS | Clinical Summary ---
Author Organization [facility] Address [address] [place] [address] Phone Care Team Providers Care Echo Vascular Tech Name Role Phone Earl SULTANA, Dean Talamantes Unavailable [phone] BERTHA SULTANA, JANETT Horan Primary Care Provider [phone] Reason for Visit and Chief Complaint The Chief Complaint is: L knee pain Problems Includes: Problems addressed during this encounter and other active Problems Current Visit Onset Date Resolved Date Provider Conditio n Status Joint Pain Left Knee 10/04/2023 Kris Fofana PA-C Active Last Documented On 3 1:08PM ; [facility] Past Visits Onset Date Resolved Date Provider Condition Status Joint Pain Right Knee 09/23/2022 Dean Elliott MD Active Last Documented On 2 4:23PM ; [facility] Plan of Treatment Left knee injection/aspiration After obtaining verbal consent, the risks of the procedure were discussed with the patient. These include reaction to any injection of medication and infection. Procedure: The the skin around the superior-lateral aspect of the patella was prepped with Betadine. Approximately 1 fingerbreadth lateral and 1 fingerbreadth inferior to the superior lateral edge of the patella, the skin was frozen with ethyl chloride spray and then infiltrated with 1% lidocaine. The infiltration went from skin to subcutaneous tissues down to capsule at this site. After reprepping with Betadine, we passed an 18-gauge 1-1/2 inch needle into this suprapatellar pouch. The effusion, 25 cc of clear fluid was then aspirated. If indicated by the patient's circumstance the fluid was then sent for cultures and cell count. Again as influenced by the patient's circumstance and lack of evidence of infection, 40 mg of Depo-Medrol and 4 cc of ropivacaine was injected through the same needle. The needle was then redrawn withdrawn, the skin was cleansed with alcohol and a Band-Aid was applied. - Last Documented On 10/04/2023 3:23PM ; [facility] Pending Tests Order Diagnosis Results Due Ordering Aung zayas Radiology - MRI MRI Knee Pain in left knee 10/26/23 Rylan Fofana PA-C Last Documented On 4 12:00PM ; [facility] Instructions to patient Lose weight Last Documented On 3 1:08PM ; [facility], [facility] Assessments Includes: Assessments from this encounter Findings Fall Risk Assessment: - Last Documented On 10/04/2023 3:23PM ; [facility], [facility] This patient has been identified as a fall risk. Balance/gait along with postural blood pressure, vision and home fall hazards have been assessed. Medications have been reviewed, and recommendations made with regard to contributing factors for future falls. - Last Documented On 10/04/2023 3:23PM ; [facility], [facility] Plan of care: Consideration of vitamin D supplementation along with balance and strength training with consideration for formal physical therapy has been discussed with the patient. - Last Documented On 10/04/2023 3:23PM ; [facility], [facility] Osteoarthritis of the left knee - Last Documented On 10/04/2023 3:23PM ; [facility] Patient likely has exacerbation of arthritic changes in the medial compartment causing his symptoms today. Likely associated medial meniscus tear. He did elect to proceed with aspiration/steroid injection of the left knee today which he tolerated very well. Slowly progress activities as tolerated after steroid injection begins to alleviate his symptoms. Meloxicam prescribed be taken as needed. We will have him him follow up in 6 weeks for recheck. He is to call with any concerns in the meantime. - Last Documented On 10/04/2023 3:23PM ; [facility] Instructions Includes: Instructions from this encounter Instructions to patient Lose weight Last Documented On 3 1:08PM ; [facility] Medical Equipment - Implanted Devices Includes: Current Devices No Medical Equipment Recorded Medications Includes: Medications discussed during this encounter and other current Medications New / Renewed during this visit Kris Fofana PA-C on 10/04/2023 Meloxicam 15 MG Oral Tablet Provider: Kris Fofana PA-C 30 day supply: 30 tablet, 1 refills Diagnosis: once a day Pharmacy: [id number] - [address] [facility], [id number] - Last Documented On 3 2:03PM By Netta Paulino ; [facility], [facility] Current Medications (continue as prescribed) amLODIPine Besy-Benazepril H Cl 2.5-10 MG Oral Capsule 09/09/2022 Provider: EDUIN GILLETTE MD Diagnosis: Last Documented On 2 4:24PM By Roland Baldwin ; [facility], [facility] Rosuvastatin Calcium 10 MG Oral Tablet 08/26/2022 Pr ovider: JANETT STONE MD Diagnosis: Last Documented On 2 4:24PM By Roland Baldwin ; [facility], [facility] Allopurinol 300 MG Oral Tablet 07/20/2022 Provider: Sheridan Coffey APRN Diagnosis: Last Documented On 2 4:24PM By Roland Bladwin ; [facility], [facility] Past Medications on file Meloxicam 7.5 MG Oral Tablet 12/28/2022 - 03/28/2023 Provider: Dean Gibson MD Diagnosis: Take 1 tablet by mouth daily Last Documented On 3 3:05PM By Niranjan Bobo ; [facility], [facility] Vitamin D3 50 MCG (1999 [place]) Oral Tablet 11/04/2022 - 01/03/2023 Provider: Dean Gibson MD Diagnosis: Take 1 tablet by mouth daily Last Documented On 3 3:36PM By Dean Elliott ; [facility], [facility] Aspirin EC 81 MG Oral Tablet Delayed Release 11/04/2022 - 12/16/2022 Provider: Dean Elliott MD Diagnosis: Take 1 tablet by mouth every 12 hours for 42 days post op Last Documented On 3 3:35PM By Dean Elliott ; [facility], [facility] Cefadroxil 500 MG Oral Capsule 11/04/2022 - 11/07/2022 Provider: Dean Gibson MD Diagnosis: Take 1 tablet by mouth every 12 hours for 3 days Last Documented On 3 3:35PM By Dean Elliott ; [facility], [facility] Acetaminophen 500 MG Oral Tablet 11/04/2022 - 11/18/2022 Provider: Dean Gibson MD Diagnosis: Take 2 tablets by mouth every 8 hours Last Documented On 3 3:35PM By Dean Elliott ; [facility], [facility] Meloxicam 15 MG Oral Tablet 11/04/2022 - 11/18/2022 Pr ovider: Dean Elliott MD Diagnosis: once a day Last Documented On 3 3:35PM By Dean Elliott ; [facility], [facility] traMADol HCl 50 MG Oral Tablet 11/04/2022 - 11/12/2022 Provider: Dean Gibson MD Diagnosis: 2 tablets every 6 hours for break through pain Last Documented On 3 3:35PM By Dean Elliott ; [facility], [facility] oxyCODONE HCl 5 MG Oral Tablet 11/04/2022 - 11/14/2022 Provider: Dean Gibson MD Diagnosis: Take 1 tablet by mouth every 4-6hrs for moderate pain Last Documented On 3 3:35PM By Dean Elliott ; [facility], [facility] Colace 100 MG Oral Capsule 11/04/2022 - 02/02/2023 Pro vider: Dean Elliott MD Diagnosis: Take 1-2 capsules daily as needed Last Documented On 3 3:35PM By Dean Elliott ; [facility], [facility] Ondansetron HCl 4 MG Oral Tablet 11/04/2022 - 11/11/2022 Provider: Dean Gibson MD Diagnosis: 1 po q 6h prn nausea Last Documented On 3 3:35PM By Dean Elliott ; [facility], [facility] Medications Administered Includes: Administered Medications from this encounter No Administered Medications Recorded Vital Signs Includes: Vital Signs from this encounter Vital Name 10/04/2023 01:22P Height (in) 75 Weight (lb) 245 Body Mass Index 30.6 Body Surface Area 2.4 Note: mgg Last Documented: On 10/04/2023 1:22PM ; [facility] Results Includes: Results discussed during this encounter No Results Recorded For Specified Dates History of Present Illness Includes: History of Present Illness from this encounter HPI Ti Reyna is a 72 year old male. - Allergy list reviewed - Problem list reviewed - Medication list reviewed Patient reports increased pain in the left knee over the past several weeks. Can not recall any particular inciting event or trauma to cause his pain. Pain is located over the medial aspect of the left knee. Denies presence of catching or locking today. Pain is worse with weight-bearing. Denies presence of radicular symptoms radiating distally. Social History Description Last Updated Alcohol use 03/01/2023 Last Documented On 3 1:08PM ; [facility], [facility] Exercising regularly 03/01/2023 Last Documented On 3 1:08PM ; [facility] No caffeine use 12/28/2022 Last Documented On 3 1:08PM ; [facility] No recent change in diet 12/28/2022 Last Documented On 3 1:08PM ; [facility] Not a current smoker. 12/28/2022 Last Documented On 3 1:08PM ; [facility], [facility] Not using drugs 12/28/2022 Last Documented On 3 1:08PM ; [facility] Tobacco non-user 09/24/2022 Last Documented On 3 1:08PM ; [facility] Smoking Status Unknown Procedures and Surgical History Includes: Procedures from this encounter Procedures Code Diagnosis Performing Provider Service L ocation Service Date use of tobacco assessment performed 1000F Last Documented On 3 1:08PM ; [facility] patient screened for future fall risk: documentation of any fall with injury in past year 1100F Last Documented On 3 1:08PM ; [facility], [facility] review of medications documented 1160F Last Documented On 3 1:22PM ; [facility] an X-ray was performed 13848 Last Documented On 3 1:08PM ; [facility] Surgical History Last Updated History of hernia repair 12/29/2022 Last Documented On 3 1:08PM ; [facility] Medical History Includes: Medical History addressed during this encounter Description Last Updated Past surgical history non-contributory 0 12/29/2022 Last Documented On 3 1:08PM ; [facility] History of History of Gallbladder 2022 Last Documented On 3 1:08PM ; [facility] Family History Includes: Family History addressed during this encounter Description Last Updated No significant family history 12/28/2022 Last Documented On 3 1:08PM ; [facility] Review of Systems Includes: Review [...] Location Date Check-In Time Check-Out Time Diagnosis NEW PROBLEM/EST PT Kris Fofana PA-C [facility] 10/04/20 12:21PM 2:00PM Insurance Includes: Active Insurance Policies Plan Name Member ID Group # Subscriber Relationship Effect yani Dates 1 - Medicare Part B of [place] [id number] Ti Reyna Self 11/10/2017 - Unknown 2 - [facility] [id number] Ti Reyna Self 09/20/2017 - Unknown Clinical Notes Includes: Clinical Notes from this encounter * Progress note Date Encounter Last Documented by 10/04/2023 NEW PROBLEM/EST PT Last document ed on 10/04/2023; 3:23 PM, Kris Fofana PA-C; [facility], [facility] Active Problems & Conditions - Joint Pain in the Left Knee - Joint Pain in the Right Knee Chief Complaint The Chief Complaint is: L knee pain. Referred Here Referred by Dr. Ray. History of Present Illness Ti Reyna is a 72 year old male. - Allergy list reviewed - Problem list reviewed - Medication list reviewed Patient reports increased pain in the left knee over the past several weeks. Can not recall any particular inciting event or trauma to cause his pain. Pain is located over the medial aspect of the left knee. Denies presence of catching or locking today. Pain is worse with weight-bearing. Denies presence of radicular symptoms radiating distally. Current Medication - Allopurinol 300 MG Oral Tablet 90 days, 0 refills - amLODIPine Besy-Benazepril HCl 2.5-10 MG Oral Capsule 90 days, 0 refills - Rosuvastatin Calcium 10 MG Oral [...] allergic reaction. Physical Findings - Vitals taken 10/04/2023 01:22 pm mgg Height 75 in Weight 245 lbs Body Mass Index 30.6 kg/m2 Body Surface Area 2.4 m2 Left lower extremity Patient walks with an antalgic gait Overall there is a varus alignment but correctable to the knee range of motion from 0-110- Palpable effusion present today Ligamentously stable to ACL PCL MCL and [...] is a 2+ dorsalis pedis pulse Tests X-rays performed today 4 views of the left knee show significant osteoarthritic changes worse in the medial compartment with subchondral sclerosis and osteophyte formation. Overall varus alignment to the knee with moderate patellofemoral arthritis as well. Previous Tests Imaging: X-Ray: An X-ray was performed. Counseling/Education - Lose weight Plan StartCited - Other Meloxicam 15 MG tablet once a day, 30 days, 1 refills EndCited User Defined 1 Left knee injection/aspiration After obtaining verbal consent, the risks of the procedure were discussed with the patient. These include reaction to any injection of medication and infection. Procedure: The the skin around the superior-lateral aspect of the patella was prepped with Betadine. Approximately 1 fingerbreadth lateral and 1 fingerbreadth inferior to the superior lateral edge of the patella, the skin was frozen with ethyl chloride spray and then infiltrated with 1% lidocaine. The infiltration went from skin to subcutaneous tissues down to capsule at this site. After reprepping with Betadine, we passed an 18-gauge 1-1/2 inch needle into this suprapatellar pouch. The effusion, 25 cc of clear fluid was then aspirated. If indicated by the patient's circumstance the fluid was then sent for cultures and cell count. Again as influenced by the patient's circumstance and lack of evidence of infection, 40 mg of Depo-Medrol and 4 cc of ropivacaine was injected through the same needle. The needle was then redrawn withdrawn, the skin was cleansed with alcohol and a Band-Aid was applied. User Defined 5 Fall Risk Assessment: This [...] the patient. Osteoarthritis of the left knee Patient likely has exacerbation of arthritic changes in the medial compartment causing his symptoms today. Likely associated medial meniscus tear. He did elect to proceed with aspiration/steroid injection of the left knee today which he tolerated very well. Slowly progress activities as tolerated after steroid injection begins to alleviate his symptoms. Meloxicam prescribed be taken as needed. We will have him him follow up in 6 weeks for recheck. He is to call with any concerns in the meantime. Notes This dictation was done with voice recognition software and may contain errors and omissions. Practice Management Use of tobacco assessment performed and patient screened for future fall risk documentation of any fall with injury in past year Review of medications documented. Care Team - JANETT STONE MD - FARM MANAGER Health Reminders - Assess BMI satisfied 10/04/2023. - Assess Tobacco Use satisfied 10/04/2023. - Follow Up Plan BMI Management satisfied 10/04/2023.
--- OUTSIDE RECORDS SUMMARY | 2025-08-20 15:43 | XMS_ITS | Encounter Summary ---
Author Organization Healthcare Address [address] [place] [address] Care Team Providers Care Rat Culturist Name Role Phone Unknown, Unknown Primary Care Provider Unavailab le Encounter Details Date Type Department Care Team (Late st Contact Info) Description 11/11/2021 Orders Only [facility] [address] [place] [address] Trish Johnson MD [address] [address] Social History Tobacco Use Types [...] Procedure Name Priority Date/Time Associated Diagnosis Comments KAPPA LAMBDA QUANT FREE LIGHT CHAINS WITH RATIO ORDERABLE Routine 11/11/2021 10:19 AM EST documented in this encounter Results * (ABNORMAL) [place] Lambda Quant Free Light Chains w/Ratio (11/11/2021 10:19 AM EST) External Free [place]-Qnt Bld 51.7(H) 3.3 - 19.4 mg/L [facility] External Free Lambda-Qnt Bld 8.0 5.7 - 26.3 mg/L [facility] External Free [place]/Lambda Ratio 6.46(H) 0.26 - 1.65 [facility] Comment: Free kappa/lambda ratio in serum of normal individuals is 0.26-1.65. Excess production of free kappa or lambda chains can alter this ratio. Monoclonal free light chains are found in serum of patients with multiple myeloma, Waldenstrom's macroglobulinemia, mu-heavy chain disease, primary amyloidosis, light chain deposition disease, monoclonal gammopathy of undetermined significance, and lymphoproliferative disorders. Measurement of free light chain concentration in serum is useful for diagnosis, prognosis, monitoring disease activity and following response to therapy of these disorders. TEST PERFORMED AT: [facility] [address] [address] MACK SOLIMAN MD 11/11/2021 10:1 9 AM EST 11/11/2021 2:43 PM EST us Trish Johnson MD LAB BLOOD ORDERABLES Final Re sult [facility] [address] [place] [address], [place] [phone] documented in this encounter Visit Diagnoses Not on filedocumented in this encounter Care Teams Rat Culturist Relationship Specialty Start Date End Date Unknown, Unknown [place], [place] PCP - General 10/10/21 documented as of this encounter
--- OUTSIDE RECORDS SUMMARY | 2025-08-20 15:43 | XMS_ITS | Encounter Summary ---
Author Organization Healthcare Address [address] [place] [address] Care Team Providers Care Certified Professional Controller Name Role Phone Unknown, Unknown Primary Care Provider Unavailab le Encounter Details Date Type Department Care Team (Late st Contact Info) Description 05/26/2023 Orders Only [facility] Medical [facility] [address] [place] [address] Trish Johnson MD [address] [address] Social History Tobacco Use Types [...] Date/Time Associated Diagnosis Comments IMMUNOFIXATION ELECTROPHORESIS Routine 05/26/2023 2:09 PM EDT documented in this encounter Results * Immunofixation Electrophoresis (05/26/2023 2:09 PM EDT) External Immunofixation Interpretation SEE BELOW 05/28/2023 2:05 PM EDT [facility] Comment: An IgG (kappa) 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 05/26/2023 2:09 PM EDT 05/26/2023 7:22 PM EDT us Trish Johnson MD LAB BLOOD ORDERABLES Final Re sult [facility] [address] [place] [address], documented in this encounter Visit Diagnoses Not on filedocumented in this encounter Care Teams Certified Professional Controller Relationship Specialty Start Date End Date Unknown, Unknown [place], [place] PCP - General 10/10/21 documented as of this encounter
--- OUTSIDE RECORDS SUMMARY | 2025-08-20 15:43 | XMS_ITS | Clinical Summary ---
Author Organization [facility] Address [address] [place] [address] Phone Care Team Providers Care Textile Machinery Sales Representative Name Role Phone Earl SULTANA, Dean Talamantes Unavailable [phone] BERTHA SULTANA, JANETT Horan Primary Care Provider [phone] Reason for Visit and Chief Complaint The Chief Complaint is: L k nee fu Problems Includes: Problems addressed during this encounter and other active Problems All Visits Onset Date Resolved Date Provider Condition S tatus Joint Pain Left Knee 10/04/2023 Kris Fofana PA-C Active Last Documented On 3 1:08PM ; [facility] Joint Pain Right Knee 09/23/2022 Dean Elliott MD Active Last Documented On 2 4:23PM ; [facility] Plan of Treatment Pending Tests Order Diagnosis Results Due Ordering [facility] - MRI MRI Knee Pain in left knee 10/26/23 Da aracelis Fofana PA-C Last Documented On 4 12:00PM ; [facility] Assessments Includes: Assessments from this encounter Findings Fall Risk Assessment: - Last Documented On 01/05/2024 11:15AM ; [facility] This patient has been identified as a fall risk. Balance/gait along with postural blood pressure, vision and home fall hazards have been assessed. Medications have been reviewed, and recommendations made with regard to contributing factors for future falls. - Last Documented On 01/05/2024 11:15AM ; [facility] Plan of care: Consideration of vitamin D supplementation along with balance and strength training with consideration for formal physical therapy has been discussed with the patient. - Last Documented On 01/05/2024 11:15AM ; [facility] Osteoarthritis of the left knee medial meniscus tear - Last Documented On 01/05/2024 11:15AM ; [facility] Patient is doing much better today. I do suspect that this point marrow edema in the tibial plateau has settled down. Minimal pain today in the left knee. We can get him back in for injection in the left knee if he needed in the future. Continue activities as tolerated. Follow up as needed. He is to call the office with any concerns. - Last Documented On 01/05/2024 11:15AM ; [facility] Medical Equipment - Implanted Devices Includes: Current Devices No Medical Equipment Recorded Medications Includes: Medications discussed during this encounter and other current Medications Current Medications (continue as prescribed) amLODIPine Besy-Benazepril H Cl 2.5-10 MG Oral Capsule 09/09/2022 Provider: EDUIN GILLETTE MD Diagnosis: Last Documented On 2 4:24PM By Roland Baldwin ; [facility] Rosuvastatin Calcium 10 MG Oral Tablet 08/26/2022 Pr ovider: JANETT STONE MD Diagnosis: Last Documented On 2 4:24PM By Roland Baldwin ; [facility] Allopurinol 300 MG Oral Tablet 07/20/2022 Provider: Sheridan Coffey APRN Diagnosis: Last Documented On 2 4:24PM By Roland Baldwin ; [facility] Past Medications on file Meloxicam 15 MG Oral Tablet 10/04/2023 - 12/03/2023 Pr ovider: Kris Fofana PA-C Diagnosis: once a day Last Documented On 3 2:03PM By Netta Paulino ; [facility] Meloxicam 7.5 MG Oral Tablet 12/28/2022 - 03/28/2023 Provider: Dean Gibson MD Diagnosis: Take 1 tablet by mouth daily Last Documented On 3 3:05PM By Niranjan Bboo ; [facility] Vitamin D3 50 MCG (1999 [place]) Oral Tablet 11/04/2022 - 01/03/2023 Provider: Dean Gibson MD Diagnosis: Take 1 tablet by mouth daily Last Documented On 3 3:36PM By Dean Elliott ; [facility] Aspirin EC 81 MG Oral Tablet Delayed Release 11/04/2022 - 12/16/2022 Provider: Dean Elliott MD Diagnosis: Take 1 tablet by mouth every 12 hours for 42 days post op Last Documented On 3 3:35PM By Dean Elliott ; [facility] Cefadroxil 500 MG Oral Capsule 11/04/2022 - 11/07/2022 Provider: Dean Gibson MD Diagnosis: Take 1 tablet by mouth every 12 hours for 3 days Last Documented On 3 3:35PM By Dean Elliott ; [facility] Acetaminophen 500 MG Oral Tablet 11/04/2022 - 11/18/2022 Provider: Dean Gibson MD Diagnosis: Take 2 tablets by mouth every 8 hours Last Documented On 3 3:35PM By Dean Elliott ; [facility] Meloxicam 15 MG Oral Tablet 11/04/2022 - 11/18/2022 Pr ovider: Dean Elliott MD Diagnosis: once a day Last Documented On 3 3:35PM By Dean Elliott ; [facility] traMADol HCl 50 MG Oral Tablet 11/04/2022 - 11/12/2022 Provider: Dean Gibson MD Diagnosis: 2 tablets every 6 hours for break through pain Last Documented On 3 3:35PM By Dean Elliott ; [facility] oxyCODONE HCl 5 MG Oral Tablet 11/04/2022 - 11/14/2022 Provider: Dean Gibson MD Diagnosis: Take 1 tablet by mouth every 4-6hrs for moderate pain Last Documented On 3 3:35PM By Dean Elliott ; [facility] Colace 100 MG Oral Capsule 11/04/2022 - 02/02/2023 Pro vider: Dean Elliott MD Diagnosis: Take 1-2 capsules daily as needed Last Documented On 3 3:35PM By Dean Elliott ; [facility] Ondansetron HCl 4 MG Oral Tablet 11/04/2022 - 11/11/2022 Provider: Dean Gibson MD Diagnosis: 1 po q 6h prn nausea Last Documented On 3 3:35PM By Dean Elliott ; [facility] Medications Administered Includes: Administered Medications from this encounter No Administered Medications Recorded Vital Signs Includes: Vital Signs from this encounter Vital Name 01/05/2024 11:03A Height (in) 75 Weight (lb) 250 Body Mass Index 31.2 Body Surface Area 2.4 Note: mgg Last Documented: On 01/05/2024 11:03A M ; [facility] Results Includes: Results discussed during this encounter No Results Recorded For Specified Dates History of Present Illness Includes: History of Present Illness from this encounter RUSTY Reyna is a 73 year old male. - Allergy list reviewed - Problem list reviewed - Medication list reviewed Patient presents today for re-evaluation of left knee pain. He does state that his pain is greatly improved. He still has some nagging pain over the medial aspect of the knee but otherwise states it is very tolerable during the day. States that topical diclofenac gel has been helping his symptoms somewhat. Overall able to perform his ADLs with minimal difficulties at this point. Social History Description Last Updated Alcohol use 03/01/2023 Last Documented On 4 10:52AM ; [facility] Exercising regularly 03/01/2023 Last Documented On 4 10:52AM ; [facility] No caffeine use 12/28/2022 Last Documented On 4 10:52AM ; [facility] No recent change in diet 12/28/2022 Last Documented On 4 10:52AM ; [facility] Not a current smoker. 12/28/2022 Last Documented On 4 10:52AM ; [facility] Not using drugs 12/28/2022 Last Documented On 4 10:52AM ; [facility] Tobacco non-user 09/24/2022 Last Documented On 4 10:52AM ; [facility] Smoking Status Unknown Procedures and Surgical History Includes: Procedures from this encounter Procedures Code Diagnosis Performing Provider Service L ocation Service Date use of tobacco assessment performed 1000F Last Documented On 4 10:52AM ; [facility] patient screened for future fall risk: documentation of any fall with injury in past year 1100F Last Documented On 4 10:52AM ; [facility] review of medications documented 1160F Last Documented On 4 10:52AM ; [facility] an X-ray was performed 19885 Last Documented On 4 10:52AM ; [facility] Surgical History Last Updated History of hernia repair 12/29/2022 Last Documented On 4 10:52AM ; [facility] Medical History Includes: Medical History addressed during this encounter Description Last Updated Past surgical history non-contributory 0 12/29/2022 Last Documented On 4 10:52AM ; [facility] History of History of Gallbladder 2022 Last Documented On 4 10:52AM ; [facility] Family History Includes: Family History addressed during this encounter Description Last Updated No significant family history 12/28/2022 Last Documented On 4 10:52AM ; [facility] Review of Systems Includes: Review of Systems [...] Time Diagnosis Follow Up Kris Fofana PA-C [facility] 4 10:51AM 11:13AM Insurance Includes: Active Insurance Policies Plan Name Member ID Group # Subscriber Relationship Effect yani Dates 1 - Medicare Part B [facility] [id number] Ti Reyna Self 11/10/2017 - Unknown 2 - BCBS [facility] [id number] Ti Reyna Self 09/20/2017 - Unknown Clinical Notes Includes: Clinical Notes from this encounter * Progress note Date Encounter Last Documented by 01/05/2024 Follow Up Last documented on 01/05/2024; 11:15 AM, Kris Cruz; [facility] Active Problems & Conditions - Joint Pain in the Left Knee - Joint Pain in the Right Knee Chief Complaint The Chief Complaint is: L sanjuanita olmedo. Referred Here Referred by Dr. Ray. History of Present Illness Ti Reyna is a 73 year old male. - Allergy list reviewed - Problem list reviewed - Medication list reviewed Patient presents today for re-evaluation of left knee pain. He does state that his pain is greatly improved. He still has some nagging pain over the medial aspect of the knee but otherwise states it is very tolerable during the day. States that topical diclofenac gel has been helping his symptoms somewhat. Overall able to perform his ADLs with minimal difficulties at this point. Current Medication - Allopurinol 300 MG Oral [...] allergic reaction. Physical Findings - Vitals taken 01/05/2024 11:03 am mgg Height 75 in Weight 250 lbs Body Mass Index 31.2 kg/m2 Body Surface Area 2.4 m2 Left lower extremity Patient walks with Normal gait Overall there is a varus alignment but correctable to the knee range of motion from 0-120- Minimal effusion present Ligamentously stable to ACL PCL MCL and LCL Patella tracks well without subluxation or grinding has good patella mobility Negative Forest medially and negative laterally Mild medial joint line tenderness Negative Stinchfield with full rotation of the hip Negative straight leg raise Patient has 5 out of 5 motor strength in tib ant and gastroc sensory is intact to SPN TPN and tibial nerves there is a 2+ dorsalis pedis pulse Previous Tests Imaging: X-Ray: An X-ray was performed. User Defined 5 Fall Risk Assessment: This [...] the patient. Osteoarthritis of the left knee medial meniscus tear Patient is doing much better today. I do suspect that this point marrow edema in the tibial plateau has settled down. Minimal pain today in the left knee. We can get him back in for injection in the left knee if he needed in the future. Continue activities as tolerated. Follow up as needed. He is to call the office with any concerns. Notes This dictation was done with voice recognition software and may contain errors and omissions. Practice Management Use of tobacco assessment performed and patient screened for future fall risk documentation of any fall with injury in past year Review of medications documented. Care Team - JANETT STONE MD - EDUCATIONAL RECRUITER Health Reminders - Assess BMI satisfied 01/05/2024. - Assess Tobacco Use satisfied 01/05/2024.
--- OUTSIDE RECORDS SUMMARY | 2025-08-20 15:44 | XMS_ITS | Encounter Summary ---
Author Organization Healthcare Address [address] [place] [address] Care Team Providers Care Roll Mill Operator Name Role Phone Unknown, Unknown Primary Care Provider Unavailab le Encounter Details Date Type Department Care Team (Late st Contact Info) Description 05/07/2022 Orders Only [facility] Medical Oncology [address] [place] [address] Trish Johnson MD [address] [address] Social History Tobacco Use Types [...] Comments BETA 2 MICROGLOBULIN, SERUM (SO) Routine 05/07/2022 10:21 AM EDT documented in this encounter Results * Beta 2 microglobulin,serum (05/07/2022 10:21 AM EDT) External Lejy-9-Npkdodyeo ulin 1.65 < OR = 2.51 mg/L [facility] Comment: TEST PERFORMED AT: [employer] [address] [phone] MACK SOLIMAN MD 05/07/2022 10:2 1 AM EDT 05/07/2022 2:04 PM EDT us Trish Johnson MD LAB BLOOD ORDERABLES Final Re sult [facility] [address] [place] [address], documented in this encounter Visit Diagnoses Not on filedocumented in this encounter Care Teams Roll Mill Operator Relationship Specialty Start Date End Date Unknown, Unknown [place], [place] PCP - General 10/10/21 documented as of this encounter
--- OUTSIDE RECORDS SUMMARY | 2025-08-20 15:44 | XMS_ITS | Encounter Summary ---
Author Organization Healthcare Address [address] [place] [address] Care Team Providers Care Slice Cutting Machine Operator Name Role Phone Unknown, Unknown Primary Care Provider Unavailab le Encounter Details Date Type Department Care Team (Late st Contact Info) Description 11/26/2022 Orders Only [facility] Medical Oncology [address] [place] [address] Trish Johnson MD [address] [address] Social History Tobacco Use Types [...] Associated Diagnosis Comments PROTEIN ELECTROPHORESIS, SERUM Routine 11/26/2022 1:45 PM EST documented in this encounter Results * (ABNORMAL) Protein electrophoresis, serum (11/26/2022 1:45 PM EST) External Total Protein 7.5 6.1 - 8.1 g/dL [facility] Comment: TEST PERFORMED AT: [facility] [facility] [place] [address] [place] [id number] MACK SOLIMAN External Albumin 4.4 3.8 - 4.8 g/dL [facility] External Kxcrq-7-Fffimbldl 0.3 0.2 - 0.3 g/dL [facility] External Snmrl-3-Pqqzvuejv 0.8 0.5 - 0.9 g/dL [facility] External Kztr-8-Hdteojht 0.4 0.4 - 0.6 g/dL [facility] External Xghk-9-Mdgejbgz 0.4 0.2 - 0.5 g/dL [facility] External Gamma Globulin 1.2 0.8 - 1.7 g/dL [facility] External Abnormal Protein Band 1 0.8(H) NONE DETECTED g/dL [facility] External Immunofixation Interpretation SEE BELOW [facility] Comment: An abnormal protein band is detected in the gamma globulins and may represent a monoclonal immunoglobulin or light chain. Immunofixation analysis is available if identification of the band(s) is clinically indicated. TEST PERFORMED AT: [facility] [facility] [address] [address] MACK Christin SOLIMAN 11/26/2022 1:45 PM EST 11/26/2022 7:10 PM EST us Trish Johnson MD LAB BLOOD ORDERABLES Final Re sult [facility] [address] [place] [address], [place] [phone] documented in this encounter Visit Diagnoses Not on filedocumented in this encounter Care Teams Slice Cutting Machine Operator Relationship Specialty Start Date End Date Unknown, Unknown [place], [place] PCP - General 10/10/21 documented as of this encounter
--- OUTSIDE RECORDS SUMMARY | 2025-08-20 15:44 | XMS_ITS | Encounter Summary ---
Author Organization Healthcare Address [address] [place] [address] Care Team Providers Care Dietitian Therapeutic Name Role Phone Unknown, Unknown Primary Care Provider Unavailab le Encounter Details Date Type Department Care Team (Late st Contact Info) Description 05/07/2022 Orders Only [facility] Medical Oncology [address] [place] [address] Trish Johnson MD [address] [address] Social History Tobacco Use Types [...] Associated Diagnosis Comments PROTEIN ELECTROPHORESIS, SERUM Routine 05/07/2022 10:21 AM EDT documented in this encounter Results * (ABNORMAL) Protein electrophoresis, serum (05/07/2022 10:21 AM EDT) External Total Protein 7.1 6.1 - 8.1 g/dL [facility] Comment: TEST PERFORMED AT: [email or web address] [address] MACK SOLIMAN MD External Albumin 4.3 3.8 - 4.8 g/dL [facility] External Oqncm-2-Klcdptaos 0.3 0.2 - 0.3 g/dL [facility] External Bnzio-6-Kxxyumoun 0.7 0.5 - 0.9 g/dL [facility] External Guzy-3-Kizppqvl 0.4 0.4 - 0.6 g/dL [facility] External Nbsa-9-Amjhpczf 0.3 0.2 - 0.5 g/dL [facility] External Gamma Globulin 1.1 0.8 - 1.7 g/dL [facility] [...] band(s) is clinically indicated. TEST PERFORMED AT: [id number] [phone] MACK SOLIMAN MD 05/07/2022 10:2 1 AM EDT 05/07/2022 2:03 PM EDT us Trish Johnson MD LAB BLOOD ORDERABLES Final Re sult [facility] [address] [place] [address], documented in this encounter Visit Diagnoses Not on filedocumented in this encounter Care Teams Dietitian Therapeutic Relationship Specialty Start Date End Date Unknown, Unknown [place], [place] PCP - General 10/10/21 documented as of this encounter
--- OUTSIDE RECORDS SUMMARY | 2025-08-20 15:44 | XMS_ITS | Encounter Summary ---
Author Organization [facility] Address [address] [place] [address] Care Team Providers Care Publicity Agent Name Role Phone Unknown, Unknown Primary Care Provider Unavailab le Encounter Details Date Type Department Care Team (Late st Contact Info) Description 05/07/2022 Orders Only [facility] Medical Oncology [address] [place] [address] Trish Johnson MD [address] [address] Social History Tobacco Use [...] Date/Time Associated Diagnosis Comments IMMUNOFIXATION ELECTROPHORESIS Routine 05/07/2022 10:21 AM EDT documented in this encounter Results * Immunofixation Electrophoresis (05/07/2022 10:21 AM EDT) External Immunofixation Interpretation SEE BELOW [facility] Comment: An IgG (kappa) 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 TEST PERFORMED AT: [employer] [address] [phone] MACK SOLIMAN MD 05/07/2022 10:2 1 AM EDT 05/07/2022 2:03 PM EDT us Trish Johnson MD LAB BLOOD ORDERABLES Final Re sult [facility] [address] [place] [address], documented in this encounter Visit Diagnoses Not on filedocumented in this encounter Care Teams Publicity Agent Relationship Specialty Start Date End Date Unknown, Unknown [place], [place] PCP - General 10/10/21 documented as of this encounter
--- OUTSIDE RECORDS SUMMARY | 2025-08-20 15:44 | XMS_ITS | Encounter Summary ---
Author Organization Healthcare Address [address] [place] [address] Care Team Providers Care Accelerator Systems Director Name Role Phone Unknown, Unknown Primary Care Provider Unavailab le Encounter Details Date Type Department Care Team (Late st Contact Info) Description 05/07/[address] [facility] Medical Oncology [address] [place] [address] Trish Johnson MD [address] [facility] [address] [place] [address] Social History Tobacco Use Types [...] Diagnosis Comments CBC WITH AUTO DIFFERENTIAL Routine 05/07/2022 10:21 AM EDT documented in this encounter Results * CBC and Differential (05/07/2022 10:21 AM EDT) External WBC 4.0 3.8 - 10.8 K/uL [facility] External Red Blood Cell (RBC) 4.51 4.20 - 5.80 M/uL [facility] External Hemoglobin 14.0 14.0 - 18.0 G/DL [facility] External Hematocrit 41.3 40.0 - 52.0 % [facility] External MCV 92 80 - 100 fL [facility] External MCH 31 26 - 35 PG [facility] External MCHC 34 32 - 36 G/DL [facility] External RDW 14.2 11.0 - 15.0 % [facility] External Mean Platelet Volume 8.8 6.2 - 10.5 fL [facility] External Platelets 170 130 - 400 K/uL [facility] External Neutrophil# 2.4 1.6 - 8.4 K/uL [facility] External Lymphocyte# 1.1 0.4 - 5.1 K/uL [facility] External Absolute Monocyte (Abs Garrett) 0.4 0.0 - 1.2 K/uL [facility] External Eosinophils# 0.0 0.0 - 0.8 K/uL [facility] External Baso# 0.0 0.0 - 0.3 K/uL [facility] External Neutrophils % 60.9 42.0 - 78.0 % [facility] External Lymphocyte % 27.7 11.0 - 47.0 % [facility] External Monocyte % 10.0 0.0 - 11.0 % [facility] External Eosinophil% 0.8 0.0 - 7.0 % [facility] External Basophil % 0.6 0.0 - 3.0 % [facility] External Nucleated RBC%-Auto 0.0 0.0 - 0.9 % [facility] External Nucleated RBC Absolute 0.00 Not Estab. K/uL [facility] 05/07/2022 10:2 1 AM EDT 05/07/2022 2:01 PM EDT Trish Johnson MD LAB BLOOD ORDERABLES Final Re sult [facility] [address] [place] [address], documented in this encounter Visit Diagnoses Not on filedocumented in this encounter Care Teams Accelerator Systems Director Relationship Specialty Start Date End Date Unknown, Unknown [place], [place] PCP - General 10/10/21 documented as of this encounter
--- OUTSIDE RECORDS SUMMARY | 2025-08-20 15:44 | XMS_ITS | Encounter Summary ---
Author Organization [facility] Address [address] [place] [id number] Care Team Providers Care Trauma Coordinator Name Role Phone Janett Obrien MD Primary Care Provider [phone] Encounter Details Date Type Department Care Team (Late st Contact Info) Description 04/14/2013 Conversion Encounter [facility] HISTORICAL CONV [address] [place] [address] Femi Mazariegos MD [address] [place], [place] [id number] Social History Tobacco Use Types Packs/Day Years Used Date Smoking Tobacco: Never Assessed Sex and Gender Information Value Date Recorded Sex Assigned at Not on file Legal Sex Male 11:02 AM EDT Gender Identity Not on file Sexual Orientation Not on file documented as of this encounter ED Notes * Femi Mazariegos MD - 04/14/2013 11:04 AM EDT [place] [id number] Physician Documentation [id number] Signed PATIENT NAME: EWELINA WORTHINGTON : 1950 ATTENDING: VISIT DATE: 04/14/13 PRIMARY CARE: JANETT OBRIEN LOCATION: ED CC: Triage History - Complaint Chief Complaint: Abdominal Pain Details of Complaints: ruq abd pain. had ultrasound this week told fatty liver. wants liver lab work done so it will be ready for dr moreau office monda - History Source Source: Patient - Social History Lives: With Family Smoking Status: Never smoked Hx Alcohol Use: Yes - Surgical History Past Surgeries: Yes (kidney stone) - Cardiac History Hx Cardiac Disorders: Yes Hx Hypertension: Yes - Neuro History Hx Neurological Disorders: No - Respiratory History Hx Respiratory Disorders: No - GI History Hx Gastrointestinal Disorders: No - History Hx Genitourinary Disorders: Yes Hx Kidney Stones: Yes - Endocrine History Hx Endocrine Disorder: No Hx Diabetes: No Hx of Thyroid Disorder: No - Musculoskeletal History Hx Musculoskeletal Disorders: No - Skin History Hx Skin Problems: No - Other History Hx Anemia: No Hx of Cancer: No Hx Human Immunodeficiency Virus (HIV): No - Psych History Hx Psychiatric Problems: No - Suicidal Risk History Hx Suicidal Ideation: No - Male Reproductive History Hx Reproductive Disorders: No Hx Prostate Cancer: No Hx Testicular Cancer: No Hx Penile Cancer: No Abdomen HPI Exam Limitations: No Limitations (Very pleasant, comfortable at time of exam) - History of Present Illness Abdominal Pain Onset Location: RUQ (reports x 6 weeks, none at time of exam) Quality/Severity: mild Timing/Duration: intermittent, resolved prior to arrival (denies any precipitating or alleviating factors) Associated Symptoms: Reports: other (Pt reports intermittent dull ache) Allergies/Adverse Reactions: Allergy/AdvReac Type Severity Reaction Status Date / Time No Known Allergies Allergy Verified 04/14/13 10:56 - History of Present Illness Review of Triage History: I have reviewed and agree with the Nursing Triage History. Initial Comments: 04/14/13 11:20 Pt reports ruq pain for past 6 weeks, followed by Dr Renae and had U/S on Tuesday of last week.Here today because he was wanting to get a jump on my lab work w/o waiting until Tuesday. Pt reports no difference in pain, denies any fever, chills, nausea, vomiting or diarrhea. Pt reports tolerating po intake w/o problems. NAD noted. Pt very comfortable on stretcher, ambulated to BR 20 feet w/o difficulty. (BRYAN SOMMERS APRN) Cardio/Abdomen ROS - Review of Systems Review of Systems is Negative Unless Otherwise Noted: Yes Constitutional: Reports: no symptoms reported EENTM: Reports: no symptoms reported Respiratory: Reports: no symptoms reported Cardiac (ROS): Reports: no symptoms reported ABD/GI: Reports: Other (Occasional ruq pain over past 6 weeks, deneis any n/v/d/f/c, reports normal appetite.) : Reports: other (Pt reports one episode of left flank discomfort middle of last week, deneis any fever, no dysuria, no hematuria, no inc frequency or urgency or n/v.) Musculoskeletal: Reports: no symptoms reported Skin: Reports: no symptoms reported Neurological: Reports: no symptoms reported Endocrine: Reports: no symptoms reported Hematologic/Lymphatic: Reports: no symptoms reported Abdomen Exam - Physical Exam General Appearance: WD/WN, No Apparent Distress Eyes, Ears, Nose, Throat Exam: PERRL/EOMI, Normal ENT Inspection Neck: Non-tender Respiratory: Chest Non-tender, Lungs Clear Cardiovascular/Chest: Normal Peripheral Pulses, Regular Rate, Rhythm Abdominal Exam: Normal Bowel Sounds, Non Tender, Soft, No Organomegaly, No Pulsatile Mass Back Exam: Normal Inspection, No CVA Tenderness, No Vertebral Tenderness Extremity: Normal Range of Motion Neurologic: No Motor/Sensory Deficits, Alert, Normal Mood/Affect, Oriented x 3 Course Effects of Treatment: Same (Remains abd pain free while in ED, abd remains soft, and n/t. Pt tolerating po liquids w/o problems) - Vital Signs Vital Signs: Temp Pulse Resp BP Pulse Ox 04/14/13 10:56 98.5 F 70 18 123/78 98 - Orders All Orders: 04/14/13 11:27 ICTOTEST,URINE [URIN] Stat URINALYSIS/REFLEX TO UC [URIN] Stat 04/14/13 11:40 AMYLASE [CHEM] Stat CBC W/AUTO [HEME] Stat COMPREHENSIVE METABOLIC PANEL [CHEM] Stat LIPASE [CHEM] Stat Laboratory & Radiology Results: 04/14/13 11:27: Urine Color Yellow, Urine Appearance Clear, Urine pH 6.0, Ur Specific [place] 1.020, Urine Protein Negative, Urine Glucose (UA) Negative, Urine Ketones Small H, Urine Blood Negative, Urine N itrate Negative, Urine Bilirubin Small, Urine Ictotest TNP, Urine Urobilinogen 0.2, Ur Leukocyte Esterase Negative, Urine RBC 0-3, Urine WBC 0-3, Ur Epithelial Cells 0-3, Urine Mucus 3+ 04/14/13 11:40: WBC 4.0 L, RBC 4.92, Hgb 14.9, Hct 45, MCV 91.3, MCH 30.2, MCHC 33.1, RDW 11.7, Plt Count 175, Neut% 63.6, Lymph % 25.7, [place] % 7.3, Eos % 0.6, Baso % 2.80 H, Neut # 2.60, Lymph # 1.00, [place] # 0.30, Eos # 0.00, Baso # 0.10, Sodium 145, Potassium 4.2, Chloride 107, CarbonDioxide 25 L, Anion Gap 17, BUN 12, Creatinine 1.1, Estimated GFR > 60, BUN/Creatinine Ratio 10.9, G lucose 102, Calcium 9.7, Total Bilirubin 1.1, AST 34, ALT 61, Alkaline Phosphatase 82, Total Protein 8.3 H, Albumin 4.8, Albumin/Globulin Ratio 1.4, Amylase 50, Lipase 98 Departure - Departure Disposition: Home, Self-Care, ER Disch-Good - Departure Clinical Impression: abdominal pain Referrals: BERTHA SULTANA,JANETT [Primary Care Provider] - Forms: ED Discharge Attestation Statement Attestation: I did not see this patient however the ALEXANDRA worked under by direct supervision with collaboration. Yasmany with the documentation and treatment plan. 09/23/14 0811 FEMI MAZARIEGOS (AMOR SULTANA,FEMI) DOCUMENTED BY : BRYAN SOMMERS APRN DOCUMENTED DATE/TIME : SIGNED : BRYAN SOMMERS APRN SIGNED DATE/TIME : 04/14/13 1238 COSIGNED: COSIGN DATE/TIME: documented in this encounter Plan of Treatment Upcoming Encounters Date Type Department Care Team (Late st Contact Info) Description 01/08/2026 10:20 AM EDT Office Visit [facility] UROLOGY 7[address] [facility] 3 [facility] [address] [place] [address] Sanjay Freed APRN 793 [facility] 3 [facility] [address] [place] [address] 01/21/2026 9:45 AM EDT Office Visit [facility] CARDIOLOGY 789 [facility] [address] [place] [address] Chun Connolly MD [address] [place] [address] 12 [place] [address] 07/31/2026 10:30 AM EDT Office Visit [facility] CARDIOLOGY 1720 [facility] [address] [place] [address] Janett Lopez MD 1720 [facility] [address] [place] [address] documented as of this encounter Visit Diagnoses Not on filedocumented in this encounter Additional Health Concerns Infection Onset Date Last Indicated Resolved Time COVID (rule out) 06/12/2020 06/23/2020 06/19/2020 9:08 PM EDT COVID Screen (preop/placement) 03/11/2022 03/13/2022 12/01/2023 12:11 PM EST documented as of this encounter Care Teams Trauma Coordinator Relationship Specialty Start Date End Date Janett Obrien MD [address] [place] [address] PCP - General Internal Medicine 02/14/25 documented as of this encounter
--- OUTSIDE RECORDS SUMMARY | 2025-08-20 15:44 | XMS_ITS | Encounter Summary ---
Author Organization Healthcare Address [address] [place] [address] Care Team Providers Care Biostatistics Director Name Role Phone Unknown, Unknown Primary Care Provider Unavailab le Encounter Details Date Type Department Care Team (Late st Contact Info) Description 05/26/2023 Orders Only [facility] Medical Oncology [address] [place] [address] Trish Johnson MD [address] [address] Social History Tobacco Use Types [...] Date/Time Associated Diagnosis Comments QUANTITATIVE IMMUNOGLOBULINS Routine 05/26/2023 2:09 PM EDT documented in this encounter Results * Quantitative Immunoglobulins (05/26/2023 2:09 PM EDT) External IgG, Serum 1,295 700 - 1,600 mg/dL 05/26/2023 7:46 PM EDT [facility] External IgA Quant 75 70 - 400 mg/dL 05/26/2023 7:46 PM EDT [facility] External IgM Quant 94 40 - 230 mg/dL 05/26/2023 7:46 PM EDT [facility] 05/26/2023 2:09 PM EDT 05/26/2023 7:23 PM EDT us Trish Johnson MD LAB BLOOD ORDERABLES Final Re sult Performing Organization Address City/State/[facility] Co de Phone Number [facility] [address] [place] [address], documented in this encounter Visit Diagnoses Not on filedocumented in this encounter Care Teams Biostatistics Director Relationship Specialty Start Date End Date Unknown, Unknown [place], [place] PCP - General 10/10/21 documented as of this encounter
--- OUTSIDE RECORDS SUMMARY | 2025-08-20 15:44 | XMS_ITS | Encounter Summary ---
Author Organization Healthcare Address [address] [place] [address] Care Team Providers Care Wetlands Conservation Laborer Name Role Phone Unknown, Unknown Primary Care Provider Unavailab le Encounter Details Date Type Department Care Team (Late st Contact Info) Description 05/07/2022 Orders Only [facility] Medical Oncology [address] [place] [address] Trish Johnson MD [address] [address] Social History Tobacco Use Types [...] Diagnosis Comments COMPREHENSIVE METABOLIC PANEL, PLASMA Routine 05/07/2022 10:21 AM EDT documented in this encounter Results * (ABNORMAL) Comprehensive Metabolic Panel, Plasma (05/07/2022 10:21 AM EDT) External Glucose 103(H) 74 - 100 mg/dL [facility] External BUN 11 6 - 20 mg/dL [facility] External Creatinine Blood 1.01 0.70 - 1.28 mg/dL [facility] External BUN/Creat Ratio 11 10 - 20 (calc) [facility] External Sodium 144 136 - 145 mmol/L [facility] External Potassium 4.1 3.4 - 5.0 mmol/L [facility] External Chloride 108(H) 98 - 107 mmol/L [facility] External Carbon Dioxide 24 22 - 31 mmol/L [facility] External Anion Gap (AG) 12 7 - 25 (calc) [facility] External Calcium 9.9 8.6 - 10.2 mg/dL [facility] External Total Protein 7.2 6.4 - 8.3 g/dL [facility] External Albumin 4.8 3.5 - 5.2 g/dL [facility] External Globulin 2.4 1.5 - 4.5 g/dL (calc) [facility] External Albumin/Globulin Ratio 2.0 1.1 - 2.5 (calc) [facility] External Bilirubin Total 0.6 0.1 - 1.2 mg/dL [facility] External Alkaline Phosphatase 75 40 - 129 U/L [facility] External AST (SGOT) 18 0 - 40 U/L [facility] External ALT (SGPT) 21 0 - 41 U/L [facility] External Estimated GFR 80 >=60 [facility] Comment: NOTE New calculation for GFR (CKD-EPI 2020) is formulated without race adjustment factors at the recommendation of the National Kidney Foundation and [place] [employer] of Nephrology. This calculation has not been validated in women. For pediatric patients refer to https://www.kidney.org/professionals/KDOQI/gfr_calculatorPed 05/07/2022 10:2 1 AM EDT 05/07/2022 2:20 PM EDT us Trish Johnson MD LAB BLOOD ORDERABLES Final Re sult [facility] [address] [place] [address], documented in this encounter Visit Diagnoses Not on filedocumented in this encounter Care Teams Wetlands Conservation Laborer Relationship Specialty Start Date End Date Unknown, Unknown [place], [place] PCP - General 10/10/21 documented as of this encounter
--- OUTSIDE RECORDS SUMMARY | 2025-08-20 15:44 | XMS_ITS | Encounter Summary ---
Author Organization Healthcare Address [address] [place] [address] Care Team Providers Care Site Coordinator Name Role Phone Unknown, Unknown Primary Care Provider Unavailab le Encounter Details Date Type Department Care Team (Late st Contact Info) Description 05/07/2022 Orders Only [facility] Medical Oncology [address] [place] [address] Trish Johnson MD [address] [address] Social History Tobacco Use Types [...] Date/Time Associated Diagnosis Comments QUANTITATIVE IMMUNOGLOBULINS Routine 05/07/2022 10:21 AM EDT documented in this encounter Results * Quantitative Immunoglobulins (05/07/2022 10:21 AM EDT) External IgG, Serum 1,285 700 - 1,600 mg/dL [facility] External IgA Quant 79 70 - 400 mg/dL [facility] External IgM Quant 84 40 - 230 mg/dL [facility] 05/07/2022 10:2 1 AM EDT 05/07/2022 2:20 PM EDT us Trish Johnson MD LAB BLOOD ORDERABLES Final Re sult [facility] [address] [place] [address], documented in this encounter Visit Diagnoses Not on filedocumented in this encounter Care Teams Site Coordinator Relationship Specialty Start Date End Date Unknown, Unknown [place] PCP - General 10/10/21 documented as of this encounter
--- OUTSIDE RECORDS SUMMARY | 2025-08-20 15:44 | XMS_ITS | Encounter Summary ---
Author Organization [facility] Address [address] [place] [address] Care Team Providers Care Fashion Marketer Name Role Phone Unknown, Unknown Primary Care Provider Unavailab le Encounter Details Date Type Department Care Team (Late st Contact Info) Description 11/26/2022 Orders Only [facility] Medical Oncology [address] [place] [address] Trish Johnson MD [address] [address] Social History Tobacco Use Types [...] Comments BETA 2 MICROGLOBULIN, SERUM (SO) Routine 11/26/2022 1:45 PM EST documented in this encounter Results * Beta 2 microglobulin,serum (11/26/2022 1:45 PM EST) External Dkov-5-Pmfqcwnye ulin 1.61 < OR = 2.51 mg/L [facility] Comment: TEST PERFORMED AT: [email or web address] [address] [address] MACK SOLIMAN 11/26/2022 1:45 PM EST 11/26/2022 7:10 PM EST us Trish Johnson MD LAB BLOOD ORDERABLES Final Re sult [facility] [address] [place] [address], documented in this encounter Visit Diagnoses Not on filedocumented in this encounter Care Teams Fashion Marketer Relationship Specialty Start Date End Date Unknown, Unknown [place], [place] PCP - General 10/10/21 documented as of this encounter
--- OUTSIDE RECORDS SUMMARY | 2025-08-20 15:44 | XMS_ITS | Encounter Summary ---
Author Organization [facility] Address [address] [place] [address] Care Team Providers Care Brick Chimney Builder Name Role Phone Regan Obrien MD Primary Care Provider [phone] Encounter Details Date Type Department Care Team (Latest Contact Info) Description 07/24/2025 Travel Social History Tobacco Use Types Packs/Day [...] Description 01/08/2026 10:20 AM EDT Office Visit [facility] UROLOGY 793 [facility] [address] [address] Sanjay Freed, CULTURAL CENTRE MANAGER 793 [facility] [address] [address] 01/21/2026 9:45 AM EDT Office Visit [facility] CARDIOLOGY [address] [address] Chun Connolly MD 9 [facility] [address] [address] 07/31/2026 10:30 AM EDT Office Visit [facility] CARDIOLOGY [address] [address] Regan Lopez MD [address] [place] [id number] documented as of this encounter Visit Diagnoses Not on filedocumented in this encounter Care Teams Brick Chimney Builder Relationship Specialty Start Date End Date Regan Obrien MD [address] [place] [address] PCP - General Internal Medicine 02/14/25 documented as of this encounter
--- OUTSIDE RECORDS SUMMARY | 2025-08-20 15:44 | XMS_ITS | Encounter Summary ---
Author Organization Healthcare Address [address] [place] [address] Care Team Providers Care Pharmacogeneticist Name Role Phone Unknown, Unknown Primary Care Provider Unavailab le Encounter Details Date Type Department Care Team (Late st Contact Info) Description 11/26/2022 Orders Only [facility] Medical Oncology [address] [place] [address] Trish Johnson MD [address] [address] Social History Tobacco Use Types [...] Diagnosis Comments CBC WITH AUTO DIFFERENTIAL Routine 11/26/2022 1:45 PM EST documented in this encounter Results * (ABNORMAL) CBC and Differential (11/26/2022 1:45 PM EST) External WBC 6.1 3.8 - 10.8 K/uL [facility] External Red Blood Cell (RBC) 4.46 4.20 - 5.80 M/uL [facility] External Hemoglobin 13.9(L) 14.0 - 18.0 G/DL [facility] External Hematocrit 41.3 40.0 - 52.0 % [facility] External MCV 92 80 - 100 fL [facility] External MCH 31 26 - 35 PG [facility] External MCHC 34 32 - 36 G/DL [facility] External RDW 13.7 11.0 - 15.0 % [facility] External Mean Platelet Volume 8.9 6.2 - 10.5 fL [facility] External Platelets 227 130 - 400 K/uL [facility] External Neutrophil# 4.4 1.6 - 8.4 K/uL [facility] External Lymphocyte# 1.2 0.4 - 5.1 K/uL [facility] External Absolute Monocyte (Abs [place]) 0.3 0.0 - 1.2 K/uL [facility] External Eosinophils# 0.0 0.0 - 0.8 K/uL [facility] External Baso# 0.0 0.0 - 0.3 K/uL [facility] External Neutrophils % 72.9 42.0 - 78.0 % [facility] External Lymphocyte % 20.2 11.0 - 47.0 % [facility] External Monocyte % 5.3 0.0 - 11.0 % [facility] External Eosinophil% 0.8 0.0 - 7.0 % [facility] External Basophil % 0.8 0.0 - 3.0 % [facility] External Nucleated RBC%-Auto 0.1 0.0 - 0.9 % [facility] External Nucleated RBC Absolute 0.01 Not Estab. K/uL [facility] 11/26/2022 1:45 PM EST 11/26/2022 7:09 PM EST Trish Johnson MD LAB BLOOD ORDERABLES Final Re sult Performing Organization Address City/State/[facility] Co de Phone Number [facility] [address] [place] [address], documented in this encounter Visit Diagnoses Not on filedocumented in this encounter Care Teams Pharmacogeneticist Relationship Specialty Start Date End Date Unknown, Unknown [place], [place] PCP - General 10/10/21 documented as of this encounter
--- OUTSIDE RECORDS SUMMARY | 2025-08-20 15:44 | XMS_ITS | Encounter Summary ---
Author Organization Healthcare Address [address] [place] [address] Care Team Providers Care Insurance Verify Rep Name Role Phone Unknown, Unknown Primary Care Provider Unavailab le Encounter Details Date Type Department Care Team (Late st Contact Info) Description 11/26/2022 Orders Only [facility] Medical Oncology [address] [place] [address] Trish Johnson MD [address] [address] Social History Tobacco Use Types [...] Diagnosis Comments COMPREHENSIVE METABOLIC PANEL, PLASMA Routine 11/26/2022 1:45 PM EST documented in this encounter Results * (ABNORMAL) Comprehensive Metabolic Panel, Plasma (11/26/2022 1:45 PM EST) External Glucose 147(H) 74 - 100 mg/dL [facility] External BUN 15 6 - 20 mg/dL [facility] External Creatinine Blood 0.91 0.70 - 1.28 mg/dL [facility] External BUN/Creat Ratio 16 10 - 20 (calc) [facility] External Sodium 146(H) 136 - 145 mmol/L [facility] Comment: RESULTS RECHECKED External Potassium 4.7 3.4 - 5.0 mmol/L [facility] External Chloride 106 98 - 107 mmol/L [facility] External Carbon Dioxide 27 22 - 31 mmol/L [facility] External Anion Gap (AG) 13 7 - 25 (calc) [facility] External Calcium 10.4(H) 8.6 - 10.2 mg/dL [facility] External Total Protein 7.8 6.4 - 8.3 g/dL [facility] External Albumin 4.9 3.5 - 5.2 g/dL [facility] External Globulin 2.9 1.5 - 4.5 g/dL (calc) [facility] External Albumin/Globulin Ratio 1.7 1.1 - 2.5 (calc) [facility] External Bilirubin Total 0.6 0.1 - 1.2 mg/dL [facility] External Alkaline Phosphatase 92 40 - 129 U/L [facility] External AST (SGOT) 16 0 - 40 U/L [facility] External ALT (SGPT) 20 0 - 41 U/L [facility] External Estimated GFR 91 >=60 [facility] Comment: NOTE New calculation for GFR (CKD-EPI 2020) is formulated without race adjustment factors at the recommendation of the National Kidney Foundation and [place] [employer] Neph[employer]. This calculation has not been validated in women. For pediatric patients refer to https://www.kidney.org/professionals/KDOQI/gfr_calculatorPed 11/26/2022 1:45 PM EST 11/26/2022 7:11 PM EST us Trish Johnson MD LAB BLOOD ORDERABLES Final Re sult [facility] [address] [place] [address], documented in this encounter Visit Diagnoses Not on filedocumented in this encounter Care Teams Insurance Verify Rep Relationship Specialty Start Date End Date Unknown, Unknown [place], [place] PCP - General 10/10/21 documented as of this encounter
--- OUTSIDE RECORDS SUMMARY | 2025-08-20 15:44 | XMS_ITS | Clinical Summary ---
Author Organization [facility] , [facility] Address [address] [place] [address] Phone Care Team Providers Care Sweep Press Operator Name Role Phone Earl SULTANA, Dean Talamantes Unavailable [phone] BERTHA SULTANA, JANETT Horan Primary Care Provider [phone] Reason for Visit and Chief Complaint [Patient Encounter] Problems Includes: Problems addressed during this encounter and other active Problems All Visits Onset Date Resolved Date Provider Condition S tatus Joint Pain Left Knee 10/04/2023 Kris Fofana PA-C Active Last Documented On 3 1:08PM ; [facility], [facility] Joint Pain Right Knee 09/23/2022 Dean Elliott MD Active Last Documented On 2 4:23PM ; [facility], [facility] Plan of Treatment No Plan of Treatment Recorded Assessments Includes: Assessments from this encounter No Assessments Recorded Medical Equipment - Implanted Devices Includes: Current Devices No Medical Equipment Recorded Medications Includes: Medications discussed during this encounter and other current Medications Current Medications (continue as prescribed) amLODIPine Besy-Benazepril H Cl 2.5-10 MG Oral Capsule 09/09/2022 Provider: EDUIN GILLETTE MD Diagnosis: Last Documented On 2 4:24PM By Roland Baldwin ; [facility], [facility] Rosuvastatin Calcium 10 MG Oral Tablet 08/26/2022 Pr ovider: JANETT STONE MD Diagnosis: Last Documented On 2 4:24PM By Roland Baldwin ; [facility], [facility] Allopurinol 300 MG Oral Tablet 07/20/2022 Provider: Sheridan Coffey [employer] Diagnosis: Last Documented On 2 4:24PM By Roland Baldwin ; [facility], [facility] Medications Administered Includes: Administered Medications from this encounter No Administered Medications Recorded Results Includes: Results discussed during this encounter No Results Recorded For Specified Dates History of Present Illness Includes: History of Present Illness from this encounter No History of Present Illness Recorded Social History No Social History Recorded - Smoking Status Unknown Medical History Includes: Medical History addressed during this encounter No Medical History Recorded Family History Includes: Family History addressed during this encounter No Family History Recorded Review of Systems Includes: Review of Systems from this encounter No Review of Systems Recorded Mental Status Includes: Mental Status from this encounter No Mental Status Recorded Functional Status Includes: Functional Status from this encounter No Functional Status Recorded Physical Exam Includes: Physical Exam from this encounter No Physical Exam Recorded Allergies Includes: Active Allergies No Known Allergies Encounters Encounter Provider Location Date Check-In Time Check-Out Time Diagnosis [Patient Encounter] Dean Elliott MD 06/08/2023 11:20AM 11:59PM Insurance Includes: Active Insurance Policies Plan Name Member ID Group # Subscriber Relationship Effect yani Dates 1 - Medicare Part B [facility] [id number] Ti Reyna Self 11/10/2017 - Unknown 2 - [facility] [id number] Ti Reyna Self 09/20/2017 - Unknown Clinical Notes Includes: Clinical Notes from this encounter No Clinical Notes Recorded
== END 2025-08-20 23:59 | disposition home or self-care (01) ==
LOC: RAD 15:39
PROVIDERS: Visit Provider Internal Medicine Gastroenterology
DX: K59.00 Constipation, unspecified (principal)
CPT/HCPCS: 74018